=== PATIENT | male | born 1975 | race Caucasian/White ===

== ENCOUNTER → 2017-10-25 13:52 | Outpatient (POV) | payer OTHER, SELFPAY | PROVIDERS: Family Provider Physician Assistant; PCP Physician Assistant; Visit Provider Nurse Practitioner Acute Care | DX: Z00.00 Encounter for general adult medical examination without abnormal findings (principal) ==

== ENCOUNTER 2017-11-15 09:22 | Day surgery (SDC) | payer OTHER, SELFPAY ==
[2017-11-09 16:36] VITALS: BMI 21.1
[2017-11-15] VITALS (7 sets, daily range): BP systolic 111–129; BP diastolic 61–92; PULSE 56–86; RESP 18–20; TEMP 36.2–36.7; O2SAT 96–98
--- NOTE | 2017-11-15 10:19 | HMH.PROC ---
[facility] Procedure Note Procedure Note:: Colonoscopy Procedure Report: Colonoscopy with cold snare polypectomy Endoscopist: Nate Liu II, MD Referring physician: Jess Dangelo PA-C Date of Procedure: November 15, 2017 Equipment: Olympus 180 variable stiffness pediatric colonoscope Sedation: MAC sedation Indication: Mr. Castro is a 41-year-old gentleman who has had constipation/obstipation which has improved with the fiber bowel regimen (MiraLAX plus Metamucil). He has had some left upper quadrant abdominal pain. The patient was taking Linzess which resulted and cramps and rumbling. He reports no rectal bleeding, weight loss or family history of colon cancer. He does feel that his pain may be gas pain. He does have chronic GERD for which he takes omeprazole 20 mg daily. Procedure: Prior to the procedure, a history and physical exam was performed, and patient's medications and allergies were reviewed. The risks, benefits and alternatives of the sedation and procedure were discussed with the patient. All questions were answered and informed consent was obtained. The patient was brought to the procedure room. Patient identification and proposed procedure were verified by the physician and the nurse. The patient was placed in a left lateral decubitus position and the scope was passed under direct vision. Throughout the procedure, the patient's blood pressure, pulse, and oxygen saturations were monitored continuously. The colonoscopy was accomplished without difficulty. The patient tolerated the procedure well. Findings: On digital rectal examination there was normal rectal tone. There were no external hemorrhoids. The prostate was 1-2+, soft, with some firmness on the right lateral margin of the prostate. The colonoscope was introduced through the anal canal to the rectum and advanced to the cecum. The ileocecal valve and appendiceal orifice were identified. The scope was advanced a short distance into the ileum which appeared grossly normal. The scope was then withdrawn into the colon. There were 3 colon polyps identified in the cecum ?1 and sigmoid ?2. These ranged in size from 4-5 mm and were all removed via cold snare polypectomy. The remaining cecum, ascending, transverse, descending, sigmoid and rectum were grossly normal. There were no other mucosal abnormalities identified. Upon retroflexion within the rectum there were grade 1 internal hemorrhoids. Impression: 1. Diminutive colonic polyps ?3 2. Grade 1 internal hemorrhoids Plan: I will follow-up the polyp histology and recommend repeat screening/surveillance colonoscopy in 5 years if the polyps are adenomatous. I would encourage continuation of the fiber bowel regimen. 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 We will discuss additional dietary measures and treatment options. The patient did have some firmness on the left lateral margin of the prostate. I would check PSA presently. The prostate was otherwise soft and unremarkable.
--- NOTE | 2017-11-15 10:23 | P.PCN_ITS ---
[facility] Procedure Note Procedure Note:: Colonoscopy Procedure Report: Colonoscopy with cold snare polypectomy Endoscopist: Nate Liu II, MD Referring physician: Jess Dangelo PA-C Date of Procedure: November 15, 2017 Equipment: Olympus 180 variable stiffness pediatric colonoscope Sedation: MAC sedation Indication: Mr. Castro is a 41-year-old gentleman who has had constipation/ obstipation which has improved with the fiber bowel regimen (MiraLAX plus Metamucil). He has had some left upper quadrant abdominal pain. The patient was taking Linzess which resulted and cramps and rumbling. He reports no rectal bleeding, weight loss or family history of colon cancer. He does feel that his pain may be gas pain. He does have chronic GERD for which he takes omeprazole 20 mg daily. Procedure: Prior to the procedure, a history and physical exam was performed, and patient' s medications and allergies were reviewed. The risks, benefits and alternatives of the sedation and procedure were discussed with the patient. All questions were answered and informed consent was obtained. The patient was brought to the procedure room. Patient identification and proposed procedure were verified by the physician and the nurse. The patient was placed in a left lateral decubitus position and the scope was passed under direct vision. Throughout the procedure, the patient's blood pressure, pulse, and oxygen saturations were monitored continuously. The colonoscopy was accomplished without difficulty. The patient tolerated the procedure well. Findings: On digital rectal examination there was normal rectal tone. There were no external hemorrhoids. The prostate was 1-2+, soft, with some firmness on the right lateral margin of the prostate. The colonoscope was introduced through the anal canal to the rectum and advanced to the cecum. The ileocecal valve and appendiceal orifice were identified. The scope was advanced a short distance into the ileum which appeared grossly normal. The scope was then withdrawn into the colon. There were 3 colon polyps identified in the cecum ?1 and sigmoid ?2. These ranged in size from 4-5 mm and were all removed via cold snare polypectomy. The remaining cecum, ascending, transverse, descending, sigmoid and rectum were grossly normal. There were no other mucosal abnormalities identified. Upon retroflexion within the rectum there were grade 1 internal hemorrhoids. Impression: 1. Diminutive colonic polyps ?3 2. Grade 1 internal hemorrhoids Plan: I will follow-up the polyp histology and recommend repeat screening/ surveillance colonoscopy in 5 years if the polyps are adenomatous. I would encourage continuation of the fiber bowel regimen. 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 We will discuss additional dietary measures and treatment options. The patient did have some firmness on the left lateral margin of the prostate. I would check PSA presently. The prostate was otherwise soft and unremarkable.
--- NOTE | 2017-11-15 13:20 | P.PN_ITS ---
[facility] Anesthesia Checklist - Patient Identification Patient Identification: Arm Band - Structural Data Admitted From: Home Planned Operative Procedure/s: colonoscopy Consent for Planned Operative Procedure(s) Verified: Yes Verified Documents: Surgical Consent, History and Physical - NPO Status Verified Time NPO: 00:00 - Additional verifications Anesthesia Reactions: No - Airway Assessment C-Spine Mobility Assessed: Yes (mp2) TMJ Mobility Assessed: Yes Dentition: Edentulous - Neurological Assessment Level of Consciousness: Awake, Alert - Anesthesia Plan Anesthesia Risk discussed: Yes Anesthesia Plan: Verified ASA Class: II Anesthesia Type: MAC [facility] Anesthesia HX I have reviewed the patient's past medical history: Yes Medical History: Reports:: Hypertension, Palpitations Denies:: Diabetes Mellitus Type 1, Diabetes Mellitus Type 2, Internal Pacemaker, Lung Disease, Seizures Comment: hx left cerebral aneurysm Other Surgeries: No: Pacemaker Comment: right arm mass, nasal surgery
== END 2017-11-15 11:30 ==
LOC: OUTP 09:24
PROVIDERS: Family Provider Physician Assistant; PCP Physician Assistant; Visit Provider Internal Medicine Gastroenterology
PROC: 0DJD8ZZ Inspection of Lower Intestinal Tract, Via Natural or Artificial Opening Endoscopic (ICD-10-PCS; CPT 45378; principal; 2017-11-15 10:30)
DX: K63.5 Polyp of colon (principal); K64.0 First degree hemorrhoids
CPT/HCPCS: 45380

== ENCOUNTER 2017-12-14 08:01 | Day surgery (SDC) | payer OTHER, SELFPAY ==
[2017-12-13 11:48] VITALS: BMI 23.1
[2017-12-13 11:54] VITALS: BP 127/89; PULSE 62; RESP 18; O2SAT 98
[2017-12-14] VITALS (9 sets, daily range): BP systolic 118–137; BP diastolic 77–90; PULSE 62–95; RESP 16–18; TEMP 36.2–36.7; O2SAT 91–100
--- NOTE | 2017-12-14 10:52 | HMH.ANESI ---
[facility] [place] Anesthesia Record Part I Intake, IV Amount: 600 Estimated blood loss (mL): 10 Urine output (mL): 0 Blood Products used (#): none Blood Pressure: 122/77 SaO2: 91 Pulse Rate: 62 Respiratory Rate: 18 Temperature: 97.2 F Patient is:: Drowsy, Nasal O2, Stable Stable to PACU at:: 10:53
--- NOTE | 2017-12-14 10:54 | HMH.ANESII ---
[facility] Anesthesia Record Part II Discharge Time: 11:23 Destination: Surgical Day Care (OP Surgery) PACU nurse assessment reviewed?: Yes Patient Condition:: Fair Anesthesia Complications:: None
--- NOTE | 2017-12-14 14:06 | PC.NURSE ---
1108-o2 titrated off, sats stable 1113-pt eating ice chips w/out difficulty
--- NOTE | 2017-12-14 14:07 | PC.NURSE ---
1121-detailed report called to IMELDA Regalado 1123-Pt transported to post op via stretcher w/rails up per IMELDA Regalado. VSS. Pt stable upon discharge.
--- NOTE | 2017-12-14 17:27 | HMH.OPNOTE ---
Date of procedure: 12/14/17 Pre-op Diagnosis:: Chronic left epididymitis Post-op Diagnosis:: Same Procedure performed:: Left epididymectomy Surgeon:: Bobby Thompson MD FILTER CLOTH MAKER:: Ibrahima Arredondo Anesthesia: GETA Estimated blood loss (mL): 0 Clinical Note:: Patient with chronic left epididymitis refractory to multiple rounds of antibiotics after discussing options he has elected to proceed with left epididymectomy in hopes to resolve chronic pain. He understand wishes to proceed. We discussed the possibility of persistent discomfort. Operative findings:: See operative note Operative note:: After adequate anesthesia the genital area was prepped and draped in standard fashion. The left scrotum was entered and the testis delivered. He appear to have a very redundant epididymis. Roughly the epididymis was removed with care to preserve blood flow to the testis proper the entire body and head of the epididymis was removed. with the convoluted part of the epididymis was ligated with 3-0 chromic. The testis appeared viable was replaced to the left scrotum. The scrotum was closed with 2 layers using 2-0 chromic. Fluffs and scrotal support was placed. 10 cc of 50% Marcaine was used for a cord block. Condition: stable Disposition: PACU Specimens:: Left epididymis Complications:: None
--- NOTE | 2017-12-14 17:31 | P.OP_ITS ---
Date of procedure: 12/14/17 Pre-op Diagnosis:: Chronic left epididymitis Post-op Diagnosis:: Same Procedure performed:: Left epididymectomy Surgeon:: Bobby Thompson MD SECTION CREWS ACTIVITIES CLERK:: Ibrahima Arredondo Anesthesia: GETA Estimated blood loss (mL): 0 Clinical Note:: Patient with chronic left epididymitis refractory to multiple rounds of antibiotics after discussing options he has elected to proceed with left epididymectomy in hopes to resolve chronic pain. He understand wishes to proceed. We discussed the possibility of persistent discomfort. Operative findings:: See operative note Operative note:: After adequate anesthesia the genital area was prepped and draped in standard fashion. The left scrotum was entered and the testis delivered. He appear to have a very redundant epididymis. Roughly the epididymis was removed with care to preserve blood flow to the testis proper the entire body and head of the epididymis was removed. with the convoluted part of the epididymis was ligated with 3-0 chromic. The testis appeared viable was replaced to the left scrotum. The scrotum was closed with 2 layers using 2-0 chromic. Fluffs and scrotal support was placed. 10 cc of 50% Marcaine was used for a cord block. Condition: stable Disposition: PACU Specimens:: Left epididymis Complications:: None
== END 2017-12-14 12:00 | disposition home or self-care (01) ==
LOC: OR 08:02
PROVIDERS: Family Provider Physician Assistant; PCP Physician Assistant; Visit Provider Urology
PROC: (CPT 54860; principal; 2017-12-14 09:45)
DX: N45.1 Epididymitis (principal)
CPT/HCPCS: 54860; 96374; J2405

== ENCOUNTER 2017-12-26 12:41 | Emergency (ER) | payer OTHER, SELFPAY ==
[2017-12-26 12:59] VITALS: BP 164/110; PULSE 100; RESP 16; TEMP 37.1; O2SAT 100; BMI 22.4
--- NOTE | 2017-12-26 14:33 | HMH.EDUROGM ---
ED Disposition Clinical Impression: Postoperative wound dehiscence Disposition: Home, Self-Care Condition on Discharge: Fair Instructions: DI for Urinary Tract Infection (UTI), DI for Urinary Tract Infection in Children Additional Instructions: 1- daily clean dressing. 2- bactrim DS po bid 3- follow up with Dr Thompson in AM. 4- the patient has pain medicine. 5- return if needed for fever or increased pain. Prescriptions: Sulfamethoxazole/Trimethoprim [Bactrim DS tablet] 1 each PO BID #20 tab Referrals: Jess Dangelo PA [Primary Care Provider] - - Critical Care Critical Care Time: No Attestation: On 12/26/17, the high probability of a clinically significant, sudden or life threatening deterioration of the following system(s) required my full and direct attention, intervention and personal management. The time I documented below is in addition to time spent performing reported procedures but includes the following listed in this critical care notation. Medical Decision Making - Red Inquiry Pt receiving controlled substance: No Red was queried for this patient: No Vital Signs: 12/26/17 12:59 Temperature 98.7 F Temperature Source Oral Pulse Rate [Right Radial] 100 H Respiratory Rate 16 Blood Pressure [Right Arm] 164/110 Blood Pressure Mean [Right Arm] 128 02 Sat by Pulse Oximetry 100 Oxygen Delivery Method Room Air - Lab Data Lab Results 12/26/17 14:33: Urine Color Yellow, Urine Appearance Clear, Urine pH 6.0, Ur Specific [place] 1.015, Urine Protein Negative, Urine Glucose (UA) Negative, Urine Ketones Negative, Urine Blood Negative, Urine Nitrate Negative, Urine Bilirubin Negative, Urine Urobilinogen 0.2, Ur Leukocyte Esterase Negative, Urine WBC Occasional, Ur Squamous Epith Cells Occasional, Urine Bacteria Trace, Urine Mucus 2+ 12/26/17 14:43: WBC 11.6 H, RBC 5.75, Hgb 16.3, Hct 50.3, MCV 87.5, MCH 28.3, MCHC 32.3, RDW 12.7, Plt Count 232, MPV 8.1, Neut % (Auto) 77.3, Lymph % (Auto) 15.7, [place] % (Auto) 5.6, Eos % (Auto) 1.1, Baso % (Auto) 0.3, Neut # (Auto) 9.0 H, Lymph # (Auto) 1.8, [place] # (Auto) 0.7, Eos # (Auto) 0.1, Baso # (Auto) 0.0 12/26/17 14:43: Sodium 143, Potassium 4.4, Chloride 104, Carbon Dioxide 31, Anion Gap 12.4, BUN 9, Creatinine 0.98, Estimated Creat Clear 107, Estimated GFR 84, Est GFR ( Amer) 101, Glucose 88 Result diagrams: 12/26/17 14:43 12/26/17 14:43 Medical Decision Narrative: The patient underwent labs and I called Dr Thompson I discussed with Dr Leung who advised fir abx and follow up with Dr Thompson. Male Urogenital HPI - General Chief complaint: Urogenital-Male Stated complaint: Surgery 12/07/17 incision open up Time Seen by Provider: 12/26/17 14:00 Mode of Arrival: Ambulatory Limitations: No Limitations Description of Symptoms (Recalled from ER Triage Doc. by RN): HAD PENILE SURGERY TWO WEEKS AGO AND STITCHES CAME OPEN AND PT IS BLEEDING NOW. - History of Present Illness HPI Narrative: This is a 42 years old white male with cerebral artery aneurysm and hypertension who is noncompliant with his blood pressure medication. He underwent surgery to the left epididymis by Dr. Kinsey on December 14, 2017. 10 days postoperatively he had wound dehiscence and was seen by [address] associates.. The patient account that he was not given antibiotics or pain medications. He continues to have bleeding from the wound and its becoming foul offensive smell to it. MD Complaint: other (Scrotal bleeding) Onset (ago): day(s) (12/23/17 on morning.) Duration: intermittent Location: left testicle Severity: mild Quality: dull Relieving factors: supine Exacerbating factors: movement, other (standing. ) recent surgery Reports: denies other symptoms - Related Data Sexually active: Yes Home Medications Medication Instructions Recorded Confirmed Omeprazole [Omeprazole 40mg 40 mg PO DAILY 11/09/17 12/26/17 Capsule] buspi
--- NOTE | 2017-12-26 14:36 | ED_ITS ---
ED Disposition Clinical Impression: Postoperative wound dehiscence Disposition: Home, Self-Care Condition on Discharge: Fair Instructions: DI for Urinary Tract Infection (UTI), DI for Urinary Tract Infection in Children Additional Instructions: 1- daily clean dressing. 2- bactrim DS po bid 3- follow up with Dr Thompson in AM. 4- the patient has pain medicine. 5- return if needed for fever or increased pain. Prescriptions: Sulfamethoxazole/Trimethoprim [Bactrim DS tablet] 1 each PO BID #20 tab Referrals: Jess Dangelo PA [Primary Care Provider] - - Critical Care Critical Care Time: No Attestation: On 12/26/17, the high probability of a clinically significant, sudden or life threatening deterioration of the following system(s) required my full and direct attention, intervention and personal management. The time I documented below is in addition to time spent performing reported procedures but includes the following listed in this critical care notation. Medical Decision Making - Red Inquiry Pt receiving controlled substance: No Red was queried for this patient: No Vital Signs: 12/26/17 12:59 Temperature 98.7 F Temperature Source Oral Pulse Rate [Right Radial] 100 H Respiratory Rate 16 Blood Pressure [Right Arm] 164/110 Blood Pressure Mean [Right Arm] 128 02 Sat by Pulse Oximetry 100 Oxygen Delivery Method Room Air - Lab Data Lab Results 12/26/17 14:33: Urine Color Yellow, Urine Appearance Clear, Urine pH 6.0, Ur Specific [place] 1.015, Urine Protein Negative, Urine Glucose (UA) Negative, Urine Ketones Negative, Urine Blood Negative, Urine Nitrate Negative, Urine Bilirubin Negative, Urine Urobilinogen 0.2, Ur Leukocyte Esterase Negative, Urine WBC Occasional, Ur Squamous Epith Cells Occasional, Urine Bacteria Trace, Urine Mucus 2+ 12/26/17 14:43: WBC 11.6 H, RBC 5.75, Hgb 16.3, Hct 50.3, MCV 87.5, MCH 28.3, MCHC 32.3, RDW 12.7, Plt Count 232, MPV 8.1, Neut % (Auto) 77.3, Lymph % (Auto) 15.7, [place] % (Auto) 5.6, Eos % (Auto) 1.1, Baso % (Auto) 0.3, Neut # (Auto) 9.0 H, Lymph # (Auto) 1.8, [place] # (Auto) 0.7, Eos # (Auto) 0.1, Baso # (Auto) 0.0 12/26/17 14:43: Sodium 143, Potassium 4.4, Chloride 104, Carbon Dioxide 31, Anion Gap 12.4, BUN 9, Creatinine 0.98, Estimated Creat Clear 107, Estimated GFR 84, Est GFR ( Amer) 101, Glucose 88 Result diagrams: 12/26/17 14:43 12/26/17 14:43 Medical Decision Narrative: The patient underwent labs and I called Dr Thompson I discussed with Dr Leung who advised fir abx and follow up with Dr Thompson. Male Urogenital HPI - General Chief complaint: Urogenital-Male Stated complaint: Surgery 12/07/17 incision open up Time Seen by Provider: 12/26/17 14:00 Mode of Arrival: Ambulatory Limitations: No Limitations Description of Symptoms (Recalled from ER Triage Doc. by RN): HAD PENILE SURGERY TWO WEEKS AGO AND STITCHES CAME OPEN AND PT IS BLEEDING NOW. - History of Present Illness HPI Narrative: This is a 42 years old white male with cerebral artery aneurysm and hypertension who is noncompliant with his blood pressure medication. He underwent surgery to the left epididymis by Dr. Kinsey on December 14, 2017. 10 days postoperatively he had wound dehiscence and was seen by [address] associates.. The patient account that he was not given antibiotics or pain medications. He continues to have bleeding from the wound and its becoming foul offensive s
[2017-12-26 14:46] LABS: Microscopic, Urine URINE MICROSCOPIC (MICROSCOPIC)
[2017-12-26 14:52] LABS: Appearance,Urine CLEAR (Clear); Bilirubin,Urine Negative (Negative); Blood, Urine Negative (Negative); Color,Urine YELLOW (Yellow); Glucose,Urine (UA) Negative (Negative); Ketones,Urine Negative (Negative); Leukocyte Esterase,Urine Negative (Negative); Nitrate,Urine Negative (Negative); Protein,Urine Negative (Negative); Specific Gravity, Urine 1.015 (1.005-1.030); Urobilinogen,Urine 0.2 EU/dl (0.2)
[2017-12-26 14:52] LABS: Basophils % 0.3 % (0.1-2.0); Eosinophils # 0.1 K/mm3 (0.0-0.4); Eosinophils % 1.1 % (0.1-12.0); Hematocrit 50.3 % (42.0-52.0); Hemoglobin 16.3 g/dL (14.1-18.0); Lymphocytes # 1.8 K/mm3 (0.7-4.5); Lymphocytes % 15.7 K/mm3 (10-50); Mean Corpuscular HGB Conc 32.3 g/dL (31.8-35.4); Mean Corpuscular Hemoglobin 28.3 pg (27.0-31.2); Mean Corpuscular Volume 87.5 fl (80-94); Mean Platelet Volume 8.1 fl (7.4-10.4); Monocytes # 0.7 K/mm3 (0.1-1.0); Monocytes % 5.6 % (1.7-9.3); Neutrophils % 77.3 % (37.0-80.0); Platelet Count 232 K/mm3 (142-424); Red Blood Count 5.75 M/mm3 (4.60-6.20); Red Cell Distribution Width 12.7 % (11.5-17.5); White Blood Count 11.6 K/mm3 (4.8-10.8)
[2017-12-26 14:59] LABS: Bacteria,Urine Trace /lpf; Mucus,Urine 2+ /lpf; Squamous Epithelial Cell,Urine Occasional #/hpf (0-5); WBC,Urine Occasional #/hpf (0-3)
[2017-12-26 14:59] LABS: Anion Gap 12.4 mEq/L (5-15); Blood Urea Nitrogen 9 mg/dL (7-18); Carbon Dioxide 31 mmol/L (21.0-32.0); Chloride 104 mmol/L (98-107); Creatinine Clearance Estimated 107 mL/min (0-300); Creatinine,Serum 0.98 mg/dL (0.70-1.30); Estimated Glomerular Filt Rate 84 ml/min (>60); GFR (African American) 101 ML/MIN (>60); Glucose 88 mg/dL (74-106); Potassium 4.4 mmoL/L (3.5-5.1); Sodium 143 mmol/L (136-145)
[2017-12-26 16:15] VITALS: BP 152/86; PULSE 97; RESP 16; TEMP 37.2; O2SAT 99
== END 2017-12-26 16:17 | disposition home or self-care (01) ==
PROVIDERS: Emergency Provider Emergency Medicine; Family Provider Physician Assistant; PCP Physician Assistant
DX: T81.30XA Disruption of wound, unspecified, initial encounter (principal); I10 Essential (primary) hypertension
CPT/HCPCS: 80048; 81001; 85025; 99283

== ENCOUNTER → 2018-04-14 10:59 | Outpatient (CLI) | payer OTHER, SELFPAY | PROVIDERS: PCP Physician Assistant; Visit Provider Physician Assistant | DX: R07.9 Chest pain, unspecified (principal); R42 Dizziness and giddiness; R55 Syncope and collapse; R06.00 Dyspnea, unspecified | CPT/HCPCS: 93225; 93226 ==

== ENCOUNTER → 2018-04-14 12:38 | Outpatient (REF) | payer OTHER, SELFPAY ==
[2018-04-14 17:05] LABS: Basophils % 0.3 % (0.1-2.0); Eosinophils # 0.2 K/mm3 (0.0-0.4); Eosinophils % 1.6 % (0.1-12.0); Hematocrit 51.7 % (42.0-52.0); Hemoglobin 16.6 g/dL (14.1-18.0); Lymphocytes # 1.9 K/mm3 (0.7-4.5); Mean Corpuscular HGB Conc 32.1 g/dL (31.8-35.4); Mean Corpuscular Hemoglobin 27.7 pg (27.0-31.2); Mean Corpuscular Volume 86.5 fl (80-94); Mean Platelet Volume 9.2 fl (7.4-10.4); Monocytes # 0.6 K/mm3 (0.1-1.0); Monocytes % 5.9 % (1.7-9.3); Neutrophils # 7.3 K/mm3 (1.8-7.8); Neutrophils % 73.2 % (37.0-80.0); Platelet Count 203 K/mm3 (142-424); Red Blood Count 5.98 M/mm3 (4.60-6.20); Red Cell Distribution Width 12.9 % (11.5-17.5)
[2018-04-14 17:33] LABS: Alanine Aminotransferase 44 U/L (12-78); Albumin Level 4.6 gm/dL (3.4-5.0); Albumin/Globulin Ratio 1.4 (1.1-1.8); Alkaline Phosphatase 101 U/L (46-116); Anion Gap 13.4 mEq/L (5-15); Aspartate Amino Transferase 31 U/L (15-37); Bilirubin,Total 0.6 mg/dL (0.2-1.0); Blood Urea Nitrogen 14 mg/dL (7-18); Calcium 9.5 mg/dL (8.5-10.1); Carbon Dioxide 29 mmol/L (21.0-32.0); Chloride 104 mmol/L (98-107); Chol/HDL Ratio 7.1 (1-3.5); Cholesterol 221 mg/dL (140-200); Creatinine,Serum 0.92 mg/dL (0.70-1.30); Estimated Glomerular Filt Rate 90 ml/min (>60); GFR (African American) 109 ML/MIN (>60); Globulin 3.4 gm/dl (1.3-3.2); Glucose 62 mg/dL (74-106); HDL Cholesterol 31 mg/dL (27-67); LDL Cholesterol 168 mg/dL (0-130); Potassium 4.4 mmoL/L (3.5-5.1); Sodium 142 mmol/L (136-145); T4 (Thyroxine) 8.7 ug/dl (4.7-13.3); Thyroid Stimulating Hormone 0.92 uIU/ml (0.358-3.740); Triglycerides 109 mg/dL (30-200); VLDL Cholesterol 22 mg/dL (0-40)
[2018-04-16 18:05] LABS: Folate 8.5 ng/mL (>3.0); Vitamin B12 370 pg/mL (232-1245); Vitamin D 25 Hydroxy 35.8 ng/mL (30.0-100.0)
[2018-04-18 12:30] LABS: Testosterone,Free 9.2 pg/mL (6.8-21.5)
[2018-04-19 15:21] LABS: Testosterone, Total, LC/MS 512.9 ng/dL (264.0-916.0)
== END ==
LOC: LAB 12:38
PROVIDERS: Visit Provider Physician Assistant
DX: R07.9 Chest pain, unspecified (principal); R06.00 Dyspnea, unspecified; R42 Dizziness and giddiness; R55 Syncope and collapse; R53.83 Other fatigue
CPT/HCPCS: 80053; 80061; 82607; 82652; 82746; 84402; 84403; 84436; 84443; 85025

== ENCOUNTER → 2018-04-25 06:18 | Outpatient (CLI) | payer OTHER, SELFPAY ==
--- NOTE | 2018-04-25 06:20 | CI_ITS ---
Cerebrovascular Exam Indications: 780.2 Syncope and collapse. IMPRESSIONS 1. The bilateral vertebral arteries are patent with normal antegrade flow. 2. Study suggests less than 20% stenosis involving the right internal carotid artery and the left internal carotid artery. History: Syncope. Risk factors: Current tobacco use. Chest pain. Fatigue. SOB. Carotid duplex study. Complete study and Doppler flow study including spectral analysis, color and lyn scale imaging. Height: Height: 185.4cm. Height: 73in. Weight: Weight: 79.4kg. Weight: 174.6lb. Body mass index: BMI: 23.1kg/m^2. Body surface area: BSA: 2.02m^2. Location: Vascular laboratory. Patient status: Outpatient. Tables: Arterial flow: + +--------+--------+ Location V sys V ed + +--------+--------+ Right CCA - proximal 122cm/s 32.2cm/s + +--------+--------+ Right CCA - distal 116cm/s 33.8cm/s + +--------+--------+ Right ECA 102cm/s -------- + +--------+--------+ Right ICA - proximal 84.9cm/s 30.6cm/s + +--------+--------+ Right ICA - mid 108cm/s 44.8cm/s + +--------+--------+ Right ICA - distal 107cm/s 43.2cm/s + +--------+--------+ Right vertebral 70.7cm/s -------- + +--------+--------+ Left CCA - proximal 136cm/s 31.4cm/s + +--------+--------+ Left CCA - distal 101cm/s 35.4cm/s + +--------+--------+ Left ECA 108cm/s -------- + +--------+--------+ Left ICA - proximal 88cm/s 30.6cm/s + +--------+--------+ Left ICA - mid 108cm/s 36.9cm/s + +--------+--------+ Left ICA - distal 108cm/s 44.8cm/s + +--------+--------+ Left vertebral 58.9cm/s -------- + +--------+--------+ Velocity ratios: + + + + + + Right, V sys Right, V ed Left, V sys Left, V ed + + + + + + Max ICA/dist CCA 0.93 1.33 1.07 1.27 + + + + + + (Report amended ) Electronically signed by: Vladimir Cunningham [id number]
--- NOTE | 2018-04-25 06:20 | CA_ITS ---
PROCEDURE: 2-D M-mode and color Doppler study INDICATIONS FOR THE TEST: Chest pain+ COPD Heart Murmur Tobacco Smoking+ Palpitations Fatigue+ Syncope+ Edema Hypertension Diabetes Mellitus Rheumatic Fever SOB+ALEXIS Obesity Hyperlipidemia Family History HD Additional History syncope PATIENT INFORMATION HEIGHT: 73 WEIGHT: 173 GENDER: Male B/P: 140/80 2-D/M-MODE INTERPRETATION: 2-D MEASUREMENTS OBSERVED VALUES IN CMS Right Ventricular Dimension (RVDd) 1.6 Interventricular Septum (Thickness)(IVsd) 0.8 Left Ventricular Internal Dimensions(LVIDd) 5.9 Left Ventricular Posterior Wall (Thickness)(LVPWd) 0.8 Aortic Root 2.8 Aortic Cusp Separation 2.2 Left Atrial Dimensions (LAD) 3.9 2D 1. Left atrium is normal size, left ventricle is normal size, there is no concentric left ventricular hypertrophy, visually estimated ejection fraction 55% with no obvious regional wall motion abnormality. 2. The right atrium and right ventricle are normal size and contractility. 3. The aortic, mitral and tricuspid valvular grossly normal. 4. The pulmonic valve is poorly visualized. 5. No significant pericardial effusion noted DOPPLER INTERROGATION: Doppler interrogation of the aortic, mitral and tricuspid valvular presence of mild mitral and tricuspid regurgitation, tricuspid and jet velocity is insufficient for calculation of the right ventricular systolic pressure, diastolic parameters are inconclusive. CONCLUSION: 1. Normal left ventricular size, preserved left ventricular systolic function, visually estimated ejection fraction 55% with no obvious regional wall motion abnormality, diastolic parameters are inconclusive. 2. Mild mitral and tricuspid regurgitation 3. No significant pericardial effusion noted
--- NOTE | 2018-04-25 06:20 | NM_ITS ---
History and Indications: Tobacco use, Family history, chest pain, shortness of breath and fatigue Procedure: Patient exercised on Jeancarlos protocol 5 minutes, resting heart rate was 47 bpm resting blood pressure 135/79, with exercise maximum heart rate achieved was 1 53 bpm which is equal to 86% of the maximum predicted heart rate and a blood pressure was 159/92, the test was started due to shortness of breath and fatigue patient denied any complained of chest pain. Patient has good exercise capacity achieved 12.8mets of workload on treadmill, the blood pressure response to exercise was adequate. Electrocardiogram: Resting electrocardiogram showed sinus bradycardia, nonspecific ST-T changes, with exercise there is less than 1.[address] segment depression noted from the baseline EKG. The EKG portion of the exercise Myoview is nondiagnostic. Secondary to baseline abnormal EKG. Cardiac stress and resting SPECT images: Cardiac stress and rest SPECT images were obtained using technetium 99 Myoview 28.4 mCi at stress and and 10.5 mCi at rest, gated SPECT further analysis of segmental wall motion and calculation of the ejection fraction also done. Cardiac stress and rest images show uniform myocardial activity without any segmental perfusion abnormality, computer derived ejection fraction is 49% with no obvious regional wall motion abnormality, right ventricle is normal size and contractility. Conclusion: 1. The EKG portion of the exercise Myoview is nondiagnostic secondary to baseline abnormal EKG, patient has good exercise capacity achieved 12.8mets of workload on treadmill, the blood pressure response to exercise was adequate, there was no exercise-induced chest discomfort. 2. No obvious scintigraphic evidence of reversible ischemia seen at this level of exercise, either derived ejection fraction is 49% with no obvious regional wall motion abnormality, right ventricle is normal size and contractility.
== END ==
PROVIDERS: Family Provider Physician Assistant; PCP Physician Assistant; Visit Provider Physician Assistant
DX: R07.9 Chest pain, unspecified (principal); R06.00 Dyspnea, unspecified; R42 Dizziness and giddiness; R55 Syncope and collapse; R94.39 Abnormal result of other cardiovascular function study; R53.83 Other fatigue
CPT/HCPCS: 78452; 93017; 93306; 93880; A9502

== ENCOUNTER → 2018-06-15 09:04 | Outpatient (CLI) | payer OTHER, SELFPAY ==
[2018-06-15 14:05] LABS: Basophils % 0.3 % (0.1-2.0); Eosinophils # 0.3 K/mm3 (0.0-0.4); Hemoglobin 15.7 g/dL (14.1-18.0); Lymphocytes # 1.6 K/mm3 (0.7-4.5); Lymphocytes % 19.3 K/mm3 (10-50); Mean Corpuscular HGB Conc 33.4 g/dL (31.8-35.4); Mean Corpuscular Hemoglobin 28.9 pg (27.0-31.2); Mean Corpuscular Volume 86.5 fl (80-94); Mean Platelet Volume 8.5 fl (7.4-10.4); Monocytes # 0.8 K/mm3 (0.1-1.0); Monocytes % 9.1 % (1.7-9.3); Neutrophils # 5.8 K/mm3 (1.8-7.8); Neutrophils % 68.3 % (37.0-80.0); Platelet Count 223 K/mm3 (142-424); Red Blood Count 5.44 M/mm3 (4.60-6.20); Red Cell Distribution Width 13.5 % (11.5-17.5); White Blood Count 8.4 K/mm3 (4.8-10.8)
[2018-06-15 15:37] LABS: Alanine Aminotransferase 39 U/L (12-78); Albumin Level 4.4 gm/dL (3.4-5.0); Albumin/Globulin Ratio 1.4 (1.1-1.8); Alkaline Phosphatase 98 U/L (46-116); Anion Gap 12.8 mEq/L (5-15); Aspartate Amino Transferase 25 U/L (15-37); Bilirubin,Total 1.1 mg/dL (0.2-1.0); Blood Urea Nitrogen 14 mg/dL (7-18); Calcium 10.2 mg/dL (8.5-10.1); Carbon Dioxide 30 mmol/L (21.0-32.0); Chloride 105 mmol/L (98-107); Chol/HDL Ratio 7.1 (1-3.5); Cholesterol 241 mg/dL (140-200); Creatinine,Serum 1.05 mg/dL (0.70-1.30); Estimated Glomerular Filt Rate 77 ml/min (>60); GFR (African American) 94 ML/MIN (>60); Globulin 3.2 gm/dl (1.3-3.2); Glucose 100 mg/dL (74-106); HDL Cholesterol 34 mg/dL (27-67); LDL Cholesterol 185 mg/dL (0-130); Potassium 4.8 mmoL/L (3.5-5.1); Sodium 143 mmol/L (136-145); T4 (Thyroxine) 9.9 ug/dl (4.7-13.3); Thyroid Stimulating Hormone 0.74 uIU/ml (0.358-3.740); Total Protein,Serum 7.6 gm/dL (6.4-8.2); Triglycerides 110 mg/dL (30-200); VLDL Cholesterol 22 mg/dL (0-40)
[2018-06-16 20:03] LABS: Vitamin D 25 Hydroxy 41.3 ng/mL (30.0-100.0)
[2018-06-16 20:05] LABS: Folate 8.9 ng/mL (>3.0); Vitamin B12 365 pg/mL (232-1245)
[2018-06-21 08:27] LABS: Testosterone, Total, LC/MS 570.3 ng/dL (264.0-916.0)
== END ==
PROVIDERS: Visit Provider Physician Assistant
DX: R53.1 Weakness (principal)
CPT/HCPCS: 80053; 80061; 82607; 82652; 82746; 84402; 84403; 84436; 84443; 85025

== ENCOUNTER → 2018-06-22 10:53 | Outpatient (CLI) | payer OTHER, SELFPAY ==
--- NOTE | 2018-06-22 10:55 | MR_ITS ---
MR head/brain wo/w con HISTORY: Severe headache with visual changes, follow-up aneurysm, dizziness and blurred vision ITS.REASON: Visual changes, headache, vertigo ORDERING PHYSICIAN: MYA Faria PATIENT AGE: 42 years Comparison: 11/13/2016 TECHNIQUE: Standard multiplanar multiecho sequences are performed without and with gadolinium enhancement. FINDINGS: No midline shift, mass effect, hydrocephalus,. No enhancing lesions. No evidence of acute infarction. The cerebellopontine angles, cerebellum, and brainstem are unremarkable. There is normal lyn-white matter differentiation with no abnormal white matter signal intensity. The pituitary is unremarkable as is the optic chiasm. On the previous brain MRI there was a question of an ophthalmic artery aneurysm which represented bony protrusion of the anterior clinoid. There was however, a 2 mm internal carotid aneurysm on the MRA. This is below limits of resolution on the MRI. MRI would be better for follow-up of this abnormality. There is some mild volume loss in region of the right hippocampal gyrus nonspecific but can be seen with hippocampal sclerosis. No mastoid effusion or sinus air-fluid level. Mild mucosal thickening involves the ethmoid and frontal sinuses IMPRESSION: 1. No acute intracranial findings. 2. 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 3. Minimal volume loss of the right hippocampal gyrus nonspecific but may be seen with hippocampal sclerosis not significantly changed
== END ==
PROVIDERS: Family Provider Physician Assistant; PCP Physician Assistant; Visit Provider Physician Assistant
DX: G43.909 Migraine, unspecified, not intractable, without status migrainosus (principal); H53.9 Unspecified visual disturbance; I72.9 Aneurysm of unspecified site
CPT/HCPCS: 70553; A9576

== ENCOUNTER → 2018-07-26 09:15 | Outpatient (CLI) | payer OTHER, SELFPAY ==
[2018-07-26 09:44] LABS: Basophils % 0.6 % (0.1-2.0); Eosinophils # 0.3 K/mm3 (0.0-0.4); Eosinophils % 3.8 % (0.1-12.0); Hematocrit 45.7 % (42.0-52.0); Hemoglobin 15.1 g/dL (14.1-18.0); Lymphocytes # 2.4 K/mm3 (0.7-4.5); Mean Corpuscular Hemoglobin 28.9 pg (27.0-31.2); Mean Corpuscular Volume 87.4 fl (80-94); Mean Platelet Volume 8.1 fl (7.4-10.4); Monocytes # 0.6 K/mm3 (0.1-1.0); Monocytes % 7.6 % (1.7-9.3); Neutrophils # 4.2 K/mm3 (1.8-7.8); Neutrophils % 55.9 % (37.0-80.0); Platelet Count 208 K/mm3 (142-424); Red Blood Count 5.22 M/mm3 (4.60-6.20); Red Cell Distribution Width 13.1 % (11.5-17.5); White Blood Count 7.4 K/mm3 (4.8-10.8)
[2018-07-26 11:13] LABS: Alanine Aminotransferase 38 U/L (12-78); Albumin Level 4.2 gm/dL (3.4-5.0); Albumin/Globulin Ratio 1.2 (1.1-1.8); Alkaline Phosphatase 104 U/L (46-116); Anion Gap 12.5 mEq/L (5-15); Aspartate Amino Transferase 24 U/L (15-37); Blood Urea Nitrogen 12 mg/dL (7-18); Calcium 9.7 mg/dL (8.5-10.1); Carbon Dioxide 30 mmol/L (21.0-32.0); Chloride 105 mmol/L (98-107); Estimated Glomerular Filt Rate 93 ml/min (>60); GFR (African American) 112 ML/MIN (>60); Globulin 3.5 gm/dl (1.3-3.2); Glucose 108 mg/dL (74-106); Potassium 4.5 mmoL/L (3.5-5.1); Sodium 143 mmol/L (136-145); Thyroid Stimulating Hormone 1.09 uIU/ml (0.358-3.740); Total Protein,Serum 7.7 gm/dL (6.4-8.2)
== END ==
PROVIDERS: Family Provider Physician Assistant; PCP Physician Assistant; Visit Provider Specialist
DX: R51 Headache (principal); I10 Essential (primary) hypertension; I67.1 Cerebral aneurysm, nonruptured; M54.2 Cervicalgia; R20.2 Paresthesia of skin
CPT/HCPCS: 36415; 80053; 84443; 85025

== ENCOUNTER → 2018-08-02 07:48 | Outpatient (CLI) | payer OTHER, SELFPAY ==
--- NOTE | 2018-08-02 07:49 | MR_ITS ---
MR cervical spine wo con, MR 3-d myelogram/MRCP HISTORY: Bilateral neck pain but worse on the RT. Headache. X2YRS. Stiffness in neck. ITS.REASON: headache, neck pain ORDERING PHYSICIAN: Kirti Samaniego MD PATIENT AGE: 42 years Comparison: None TECHNIQUE: Standard multiplanar multiecho sequences are performed without contrast. 3-D MIP and myelographic images are also rendered and reviewed FINDINGS: There is normal alignment. The craniocervical junction has an unremarkable appearance C2-C3: There is mild hypertrophic change of the lamina on the right causing mild compression upon the posterior right aspect of the cord. C3-C4: Unremarkable. C4-C5: Minimal bulging disc with mild disc desiccation. C5-C6: Mild left foraminal narrowing from uncovertebral hypertrophy. C6-C7: Degenerative disc disease with bulging disc and mild left uncovertebral hypertrophy with mild left lateral recess and foraminal narrowing. C7-T1: Unremarkable. Spinal cord has an unremarkable appearance. IMPRESSION: 1. Mild hypertrophic change of the lamina on the right causing mild flattening and compression upon the right aspect of the cord posteriorly at C2-C3 2. Mild cervical spondylosis with degenerative disc disease and bulging disc as described above. Please see above for detailed description at each level 3. No disc herniation or canal stenosis
--- NOTE | 2018-08-02 08:33 | CT_ITS ---
CT angio head INDICATION: ITS.REASON: headache, intracranial aneurysm ORDERING PHYSICIAN: Kirti Samaniego MD PATIENT AGE: 42 years COMPARISON: 12/24/2016 MRI TECHNIQUE: Axial images are obtained following the bolus administration of 100 mL's of Isovue-370. Contrast. Sagittal and coronal reformatted images are reviewed as well. All CT scans at the facility use one or more dose reduction, viz: automated exposure control, ma/kV adjustment per patient size (including targeted exams where dose is matched to indication, i.e. head), or iterative reconstruction technique. FINDINGS: There is a 2.5 mm x 1.6 mm protrusion from the cavernous segment of the left internal carotid artery. This projects anteriorly and laterally and is similar to the abnormality described on the MRA consistent with a small aneurysm. On the MRI report as described is clinoid portion but this is actually the junction of the cavernous and clinoid portion. No other significant abnormalities are evident. No intracranial occlusive process or arteriovenous malformation is evident. No evidence of sagittal sinus thrombosis. No enhancing lesions are apparent. IMPRESSION: 1. Small aneurysm projecting off of the junction of the clinoid and cavernous portion of the left internal carotid artery at 2.5 x 1.6 mm overall not significant change from the MRA of 12/24/2016
== END ==
PROVIDERS: Family Provider Physician Assistant; PCP Physician Assistant; Visit Provider Specialist
DX: R51 Headache (principal); I67.1 Cerebral aneurysm, nonruptured; I10 Essential (primary) hypertension; M54.2 Cervicalgia; R20.2 Paresthesia of skin
CPT/HCPCS: 70496; 72141; 76376; Q9967

== ENCOUNTER → 2018-08-25 13:29 | Outpatient (CLI) | payer OTHER, SELFPAY ==
[2018-08-25 13:52] LABS: Basophils % 0.5 % (0.1-2.0); Eosinophils # 0.3 K/mm3 (0.0-0.4); Eosinophils % 3.2 % (0.1-12.0); Hematocrit 47.3 % (42.0-52.0); Hemoglobin 15.2 g/dL (14.1-18.0); Lymphocytes # 2.1 K/mm3 (0.7-4.5); Lymphocytes % 24.3 % (10-50); Mean Corpuscular HGB Conc 32.1 g/dL (31.8-35.4); Mean Corpuscular Hemoglobin 28.3 pg (27.0-31.2); Mean Platelet Volume 8.8 fl (7.4-10.4); Monocytes # 0.6 K/mm3 (0.1-1.0); Monocytes % 6.4 % (1.7-9.3); Neutrophils # 5.8 K/mm3 (1.8-7.8); Neutrophils % 65.6 % (37.0-80.0); Platelet Count 202 K/mm3 (142-424); Red Blood Count 5.38 M/mm3 (4.60-6.20); Red Cell Distribution Width 13.1 % (11.5-17.5); White Blood Count 8.8 K/mm3 (4.8-10.8)
[2018-08-25 14:32] LABS: Alanine Aminotransferase 34 U/L (12-78); Albumin/Globulin Ratio 1.3 (1.1-1.8); Alkaline Phosphatase 105 U/L (46-116); Anion Gap 13.9 mEq/L (5-15); Aspartate Amino Transferase 17 U/L (15-37); Bilirubin,Total 0.6 mg/dL (0.2-1.0); Blood Urea Nitrogen 13 mg/dL (7-18); Calcium 9.6 mg/dL (8.5-10.1); Carbon Dioxide 30 mmol/L (21.0-32.0); Chloride 103 mmol/L (98-107); Creatinine,Serum 0.86 mg/dL (0.70-1.30); Estimated Glomerular Filt Rate 98 ml/min (>60); GFR (African American) 118 ML/MIN (>60); Globulin 3.2 gm/dl (1.3-3.2); Glucose 94 mg/dL (74-106); Potassium 4.9 mmoL/L (3.5-5.1); Sodium 142 mmol/L (136-145); Total Protein,Serum 7.2 gm/dL (6.4-8.2); Uric Acid 5.1 mg/dL (2.6-7.2)
[2018-08-25 14:44] LABS: Erythrocyte Sedimentation Rate 1 mm/hr (0-15)
== END ==
PROVIDERS: PCP Physician Assistant; Visit Provider Physician Assistant
DX: M79.89 Other specified soft tissue disorders (principal)
CPT/HCPCS: 80053; 84550; 85025; 85651

== ENCOUNTER → 2018-11-01 13:36 | Outpatient (CLI) | payer OTHER, SELFPAY ==
--- NOTE | 2018-11-01 13:40 | XR_ITS ---
XR chest AP HISTORY: ITS.REASON: pain upon deep inspiration ORDERING PHYSICIAN: Danish Pompa PATIENT AGE: 42 years COMPARISON: 10/11/2016 FINDINGS: The cardiomediastinal silhouette and pulmonary vascularity are within normal limits. The lungs are clear without infiltrates, suspicious nodules, or pleural effusions. No acute bony abnormalities. IMPRESSION: Negative chest, no acute finding
== END ==
PROVIDERS: PCP Emergency Medicine; Visit Provider Nurse Practitioner Family
DX: R06.2 Wheezing (principal)
CPT/HCPCS: 71045

== ENCOUNTER → 2018-12-06 09:11 | Outpatient (POV) | payer OTHER, SELFPAY ==
[2018-12-06 09:32] VITALS: BP 163/91; PULSE 50; RESP 18
--- NOTE | 2018-12-06 10:57 | HMH.PMCON ---
Assessment and Plan (1) Degenerative disc disease, cervical Current visit: Yes Status: Chronic Category: Medical Code(s): M50.30 - Other cervical disc degeneration, unspecified cervical region (2) Cervical radiculopathy Current visit: Yes Status: Chronic Category: Medical Code(s): M54.12 - Radiculopathy, cervical region - Assessment and plan all Dx Assessment and Plan for all problems:: We will schedule C5-C6 cervical epidural steroid injection for the patient. He is not on any anticoagulation therapy is continuing a home stretching regimen. He is currently on anti-inflammatories he has had this pain for several years that is worsened in the last 6 months. I will follow-up with patient after his injection and reassess his symptoms at that time. Dr. Long has reviewed this note and agrees with this plan of care. This note was dictated using voice recognition software and may contain errors or omissions HPI - Data of Consult Consult date: 12/06/18 Requesting Physician: Lakshmi Green APRN Primary Care Provider: MYA Chamberlain - Consult Narrative Reason for consult: Neck pain History of present illness: Mr. Castro is a 43 year old male who presents today for consultation in regards to his neck pain. Patient states that he has had neck pain for several years he rates his pain a 5 out of 10 he has numbness and tingling in both arm. She does have an MRI showing degenerative changes and disc bulge. Patient has completed physical therapy with minimal relief. Patient currently on anti-inflammatories. CC: Lakshmi Green APRN [facility] History I have reviewed the patient's past medical history: Yes Medical History: Reports:: Aneurysm, Hyperlipidemia, Hypertension, Migraine, Palpitations Denies:: Diabetes Mellitus Type 1 *Have you received a flu vaccine this season?: No Other Surgeries: Yes: Colonoscopy Amputation: No Fractures: No - *Social History Smoking Status: Current every day smoker Tobacco Type: cigarettes # Packs/Day (cigarettes): 1 #Yrs smoked (if former smoker): 30 Alcohol Intake: never Alcohol Intake Frequency:: other Substance Use Type: marijuana *Occupational Status:: employed Housing: apartment Household Members: spouse *Travel in the last 8 weeks: None - Psychiatric History Expresses thoughts of harming self/others: None Suicide Plan Description: No Plan Family Hx:: Cancer, Heart Attack, Stroke Review of Systems - Review of Systems ROS General: no recent weight change, no fever, no sleep disturbances Respiratory: no cough, no shortness of air, no recurring pulmonary infections Cardiovascular/Peripheral Vascular: No chest pain, No palpitations, no edema, no shortness of breath. Gastrointestinal: no incontinence, normal bowel movements reported Genitourinary: no incontinence Musculoskeletal: Neck pain, arm pain Psychiatric: normal mood/ affect Neurological: [denies weakness in extremities], [denies balance issues] Meds Home Medications Medication Instructions Recorded Confirmed Type Omeprazole [Omeprazole 40mg 40 mg PO DAILY 11/09/17 11/01/18 History Capsule] propranolol 20 mg tablet 20 mg PO BID 11/01/18 11/01/18 History Allergies Allergy/AdvReac Type Severity Reaction Status Date / Time Penicillins Allergy Unknown Verified 10/25/18 14:40 Objective Vital signs: Pulse Resp BP 50 L 18 163/91 H 12/06/18 09:32 12/06/18 09:32 12/06/18 09:32 Narrative: Physical Exam General: Alert and oriented x3, no acute distress, pleasant and cooperative, [on room air] Lungs: Resps E/U, Symmetrical chest expansion, Eyes: PERRL Musculoskeletal: Flexion and extension of cervical spine somewhat guarded secondary to pain, deep tendon reflexes normal, strength in upper and lower extremities [5/5], normal gait noted Neurological: speech clear, automobile damage appraiser equal, no gross sensory deficits Opioid Risk Tool - Opioid
--- NOTE | 2018-12-06 11:01 | P.CONS_ITS ---
Assessment and Plan (1) Degenerative disc disease, cervical Current visit: Yes Status: Chronic Category: Medical Code(s): M50.30 - Other cervical disc degeneration, unspecified cervical region (2) Cervical radiculopathy Current visit: Yes Status: Chronic Category: Medical Code(s): M54.12 - Radiculopathy, cervical region - Assessment and plan all Dx Assessment and Plan for all problems:: We will schedule C5-C6 cervical epidural steroid injection for the patient. He is not on any anticoagulation therapy is continuing a home stretching regimen. He is currently on anti-inflammatories he has had this pain for several years that is worsened in the last 6 months. I will follow-up with patient after his injection and reassess his symptoms at that time. Dr. Long has reviewed this note and agrees with this plan of care. This note was dictated using voice recognition software and may contain errors or omissions HPI - Data of Consult Consult date: 12/06/18 Requesting Physician: Lakshmi Green APRN Primary Care Provider: MYA Chamebrlain - Consult Narrative Reason for consult: Neck pain History of present illness: Mr. Castro is a 43 year old male who presents today for consultation in regards to his neck pain. Patient states that he has had neck pain for several years he rates his pain a 5 out of 10 he has numbness and tingling in both arm. She does have an MRI showing degenerative changes and disc bulge. Patient has completed physical therapy with minimal relief. Patient currently on anti-inflammatories. CC: Lakshmi Green APRN [facility] History I have reviewed the patient's past medical history: Yes Medical History: Reports:: Aneurysm, Hyperlipidemia, Hypertension, Migraine, Palpitations Denies:: Diabetes Mellitus Type 1 *Have you received a flu vaccine this season?: No Other Surgeries: Yes: Colonoscopy Amputation: No Fractures: No - *Social History Smoking Status: Current every day smoker Tobacco Type: cigarettes # Packs/Day (cigarettes): 1 #Yrs smoked (if former smoker): 30 Alcohol Intake: never Alcohol Intake Frequency:: other Substance Use Type: marijuana *Occupational Status:: employed Housing: apartment Household Members: spouse *Travel in the last 8 weeks: None - Psychiatric History Expresses thoughts of harming self/others: None Suicide Plan Description: No Plan Family Hx:: Cancer, Heart Attack, Stroke Review of Systems - Review of Systems ROS General: no recent weight change, no fever, no sleep disturbances Respiratory: no cough, no shortness of air, no recurring pulmonary infections Cardiovascular/Peripheral Vascular: No chest pain, No palpitations, no edema, no shortness of breath. Gastrointestinal: no incontinence, normal bowel movements reported Genitourinary: no incontinence Musculoskeletal: Neck pain, arm pain Psychiatric: normal mood/ affect Neurological: [denies weakness in extremities], [denies balance issues] Meds Home Medications Medication Instructions Recorded Confirmed Type Omeprazole [Omeprazole 40mg 40 mg PO DAILY 11/09/17 11/01/18 History Capsule] propranolol 20 mg tablet 20 mg PO BID 11/01/18 11/01/18 History Allergies Allergy/AdvReac Type Severity Reaction Status Date / Time Penicillins Allergy Unknown Verified 10/25/18 14:40 Objective Vital signs:
== END ==
PROVIDERS: PCP Physician Assistant; Visit Provider Clinical Nurse Specialist Family Health
DX: M50.10 Cervical disc disorder with radiculopathy, unspecified cervical region (principal)
CPT/HCPCS: 99202

== ENCOUNTER 2018-12-23 09:30 | Outpatient (RCR) | payer OTHER, SELFPAY | END 2018-12-23 09:35 | disposition home or self-care (01) | LOC: PT 09:30 | PROVIDERS: Visit Provider Physician Assistant Medical | DX: M54.2 Cervicalgia (principal) | CPT/HCPCS: 97163 ==

== ENCOUNTER → 2019-01-09 14:56 | Outpatient (POV) | payer OTHER, SELFPAY ==
[2019-01-09 15:19] VITALS: BP 144/94; PULSE 80; RESP 18; O2SAT 98; BMI 20.4
--- NOTE | 2019-01-10 08:30 | HMH.PAINSOAP ---
[facility] Pain Management SOAP Note Subjective:: Patient is a pleasant 43-year-old white male who presents today for follow-up after cervical epidural steroid injection. He does rate his pain a 7 out of 10 however he says his symptoms have decreased up to 80%. Patient is able to move his arm and is much more functional. He is also got his strength back in his left arm. He would like to repeat the injection just to see if he can get any added benefit. He is not on any anticoagulation therapy. He continues a home stretching program. He is also on anti-inflammatories. ROS General: no recent weight change, no fever, no sleep disturbances Respiratory: no cough, no shortness of air, no recurring pulmonary infections Cardiovascular/Peripheral Vascular: No chest pain, No palpitations, no edema, no shortness of breath. Gastrointestinal: no incontinence, normal bowel movements reported Genitourinary: no incontinence Musculoskeletal: Neck pain, left arm pain Psychiatric: normal mood/ affect, [denies depression], [denies anxiety] Neurological: [denies weakness in extremities], [denies balance issues] Objective:: Physical Exam General: Alert and oriented x3, no acute distress, pleasant and cooperative, [on room air] Lungs: Resps E/U, Symmetrical chest expansion, Eyes: PERRL Musculoskeletal: Flexion and extension of cervical spine somewhat guarded secondary to pain, deep tendon reflexes normal, strength in upper and lower extremities [5/5], normal gait noted Neurological: speech clear, 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 He is not on any anticoagulation therapy. I will follow-up with him after his injection and reassess his symptoms at that time. Dr. Long has reviewed this note and agrees with this plan of care. This note was dictated using voice recognition software and may contain errors or omissions
--- NOTE | 2019-01-10 08:33 | P.CONS_ITS ---
[facility] Pain Management SOAP Note Subjective:: Patient is a pleasant 43-year-old white male who presents today for follow-up after cervical epidural steroid injection. He does rate his pain a 7 out of 10 however he says his symptoms have decreased up to 80%. Patient is able to move his arm and is much more functional. He is also got his strength back in his left arm. He would like to repeat the injection just to see if he can get any added benefit. He is not on any anticoagulation therapy. He continues a home stretching program. He is also on anti-inflammatories. ROS General: no recent weight change, no fever, no sleep disturbances Respiratory: no cough, no shortness of air, no recurring pulmonary infections Cardiovascular/Peripheral Vascular: No chest pain, No palpitations, no edema, no shortness of breath. Gastrointestinal: no incontinence, normal bowel movements reported Genitourinary: no incontinence Musculoskeletal: Neck pain, left arm pain Psychiatric: normal mood/ affect, [denies depression], [denies anxiety] Neurological: [denies weakness in extremities], [denies balance issues] Objective:: Physical Exam General: Alert and oriented x3, no acute distress, pleasant and cooperative, [on room air] Lungs: Resps E/U, Symmetrical chest expansion, Eyes: PERRL Musculoskeletal: Flexion and extension of cervical spine somewhat guarded secondary to pain, deep tendon reflexes normal, strength in upper and lower extremities [5/5], normal gait noted Neurological: speech clear, corporate legal assistant equal, no gross sensory deficits Assessment:: Degenerative disc disease cervical spine with cervical radiculopathy Plan:: We will do repeat C5-C6 cervical epidural steroid injection given the efficacy of the last 20 do believe it would be beneficial. He is not on any anticoagulation therapy. I will follow-up with him after his injection and reassess his symptoms at that time. Dr. Long has reviewed this note and agrees with this plan of care. This note was dictated using voice recognition software and may contain errors or omissions
== END ==
PROVIDERS: PCP Physician Assistant; Visit Provider Clinical Nurse Specialist Family Health
DX: M50.10 Cervical disc disorder with radiculopathy, unspecified cervical region (principal)
CPT/HCPCS: 99212

== ENCOUNTER → 2019-02-09 16:07 | Outpatient (CLI) | payer OTHER, SELFPAY ==
[2019-02-21 06:20] LABS: Arsenic, Blood 3 ug/L (2-23); Lead, Blood 1 ug/dL (0-4); Mercury, Blood None Detected ug/L (0.0-14.9)
== END ==
PROVIDERS: Visit Provider Physician Assistant
DX: R55 Syncope and collapse (principal)
CPT/HCPCS: 36415; 82175; 83655; 83825

== ENCOUNTER → 2019-02-28 10:12 | Outpatient (POV) | payer OTHER, SELFPAY ==
[2019-02-28 10:35] VITALS: BP 151/84; PULSE 58; RESP 18; O2SAT 98; BMI 23.1
--- NOTE | 2019-02-28 10:49 | HMH.PAINSOAP ---
[facility] Pain Management SOAP Note Subjective:: Patient is a pleasant 43-year-old white male who presents today for follow-up after his second cervical epidural steroid injection. Patient reports decreased relief with second injection. he does rate his pain 5 out of 10 today, however, he states that he is having headaches at the base of his skull . He does report decreased pain to bilateral arms but is having numbness and tingling to his first 3 fingers return on the left side. ROS General: no recent weight change, no fever, no sleep disturbances Respiratory: no cough, no shortness of air, no recurring pulmonary infections Cardiovascular/Peripheral Vascular: No chest pain, No palpitations, no edema, no shortness of breath. Gastrointestinal: no incontinence, normal bowel movements reported Genitourinary: no incontinence Musculoskeletal: Neck pain, left arm pain Psychiatric: normal mood/ affect, [denies depression], [denies anxiety] Neurological: [denies weakness in extremities], [denies balance issues], complaints of headache. Objective:: Physical Exam General: Alert and oriented x3, no acute distress, pleasant and cooperative, [on room air] Lungs: Resps E/U, Symmetrical chest expansion, Eyes: PERRL Musculoskeletal: Flexion and extension of [cervical] spine somewhat guarded secondary to pain, deep tendon reflexes normal, strength in upper and lower extremities [5/5], normal gait noted. Tenderness noted to the base of the skull bilaterally Neurological: speech clear, ordering box operator equal, no gross sensory deficits Assessment:: Degenerative disc disease cervical spine with cervical radiculopathy, occipital neuralgia Plan:: We will set the patient up for bilateral occipital blocks. Believe it would be beneficial given the symptomology of the patient. I will reassess the patient after his injection and reassess his symptoms at that time patient is on anti-inflammatories. And continuing a home stretching program. Dr. Long has reviewed this note and agrees with this plan of care. This note was dictated using voice recognition software and may contain errors or omissions
--- NOTE | 2019-02-28 10:53 | P.CONS_ITS ---
[facility] Pain Management SOAP Note Subjective:: Patient is a pleasant 43-year-old white male who presents today for follow-up after his second cervical epidural steroid injection. Patient reports decreased relief with second injection. he does rate his pain 5 out of 10 today, however, he states that he is having headaches at the base of his skull . He does report decreased pain to bilateral arms but is having numbness and tingling to his first 3 fingers return on the left side. ROS General: no recent weight change, no fever, no sleep disturbances Respiratory: no cough, no shortness of air, no recurring pulmonary infections Cardiovascular/Peripheral Vascular: No chest pain, No palpitations, no edema, no shortness of breath. Gastrointestinal: no incontinence, normal bowel movements reported Genitourinary: no incontinence Musculoskeletal: Neck pain, left arm pain Psychiatric: normal mood/ affect, [denies depression], [denies anxiety] Neurological: [denies weakness in extremities], [denies balance issues], complaints of headache. Objective:: Physical Exam General: Alert and oriented x3, no acute distress, pleasant and cooperative, [on room air] Lungs: Resps E/U, Symmetrical chest expansion, Eyes: PERRL Musculoskeletal: Flexion and extension of [cervical] spine somewhat guarded secondary to pain, deep tendon reflexes normal, strength in upper and lower extremities [5/5], normal gait noted. Tenderness noted to the base of the skull bilaterally Neurological: speech clear, field logistics coordinator equal, no gross sensory deficits Assessment:: Degenerative disc disease cervical spine with cervical radiculopathy, occipital neuralgia Plan:: We will set the patient up for bilateral occipital blocks. Believe it would be beneficial given the symptomology of the patient. I will reassess the patient after his injection and reassess his symptoms at that time patient is on anti- inflammatories. And continuing a home stretching program. Dr. Long has reviewed this note and agrees with this plan of care. This note was dictated using voice recognition software and may contain errors or omissions
== END ==
PROVIDERS: PCP Physician Assistant; Visit Provider Clinical Nurse Specialist Family Health
DX: M50.10 Cervical disc disorder with radiculopathy, unspecified cervical region (principal)
CPT/HCPCS: 99212

== ENCOUNTER → 2019-05-19 06:53 | Outpatient (CLI) | payer OTHER, SELFPAY ==
--- NOTE | 2019-05-19 06:58 | CI_ITS ---
Cerebrovascular Exam Indications: 780.2 Syncope and collapse. 780.4 Dizziness and giddiness. IMPRESSIONS 1. The bilateral vertebral arteries are patent with normal antegrade flow. 2. Study suggests less than 20% stenosis involving the right internal carotid artery. No change from the study of 25-Apr-2018. 3. Study suggests less than 20% stenosis involving the left internal carotid artery. No change from the study of 25-Apr-2018. History: Risk factors: Current tobacco use. Hypertension. Carotid duplex study. Complete study and Doppler flow study including spectral analysis, color and lyn scale imaging. Height: Height: 185.4cm. Height: 73in. Weight: Weight: 74.8kg. Weight: 164.7lb. Body mass index: BMI: 21.8kg/m^2. Body surface area: BSA: 1.96m^2. Location: Vascular laboratory. Patient status: Outpatient. Incidental findings: A thyroid cyst in the left lobe is noted incidentally. Solid nodule seen right thyroid gland. Tables: Arterial flow: + +--------+--------+ Location V [facility] V ed + +--------+--------+ Right CCA - proximal 102cm/s 24.4cm/s + +--------+--------+ Right CCA - distal 99cm/s 28.3cm/s + +--------+--------+ Right ECA 80.9cm/s 14.9cm/s + +--------+--------+ Right ICA - proximal 93.4cm/s 36.5cm/s + +--------+--------+ Right ICA - mid 104cm/s 37.2cm/s + +--------+--------+ Right ICA - distal 109cm/s 52cm/s + +--------+--------+ Right vertebral 50.5cm/s 15.3cm/s + +--------+--------+ Left CCA - proximal 113cm/s 22cm/s + +--------+--------+ Left CCA - distal 95.1cm/s 29.1cm/s + +--------+--------+ Left ECA 72.2cm/s 12.9cm/s + +--------+--------+ Left ICA - proximal 70.5cm/s 22.4cm/s + +--------+--------+ Left ICA - mid 86.1cm/s 34.5cm/s + +--------+--------+ Left ICA - distal 81cm/s 34.5cm/s + +--------+--------+ Left vertebral 51.1cm/s 14.7cm/s + +--------+--------+ Velocity ratios: + + + + + + Right, V sys Right, V ed Left, V sys Left, V ed + + + + + + Max ICA/dist CCA 1.1 1.84 0.91 1.19 + + + + + + (Report amended ) Electronically signed by: Trey Martinez [id number]
--- NOTE | 2019-05-19 06:58 | NM_ITS ---
History:SYNCOPE, CHEST PAIN Procedure: Patient received a 0.4 mg of intravenous Lexiscan, resting heart rate 72 bpm, resting blood pressure 121/71, with Lexiscan maximum heart rate achieve was 116 bpm which is less than 85% of the maximum predicted heart rate and blood pressure was 127/79. With Lexiscan patient denied any complaint of chest pain. Electrocardiogram: Resting electrocardiogram showed sinus rhythm, with Lexiscan there is less than 1.5mm ST segment depression noted from the baseline EKG. The EKG portion of the Lexiscan Myoview is nondiagnostic. Cardias Stress and Resting SPECT images: Cardias Stress and Resting SPECT images were obtained using technetium 99m Myoview 31.2 mCi stress and 9.89 mCi at rest. Gated SPECT further analysis of segmental wall motion and calculation of ejection fraction also done. Cardiac stress and resting SPECT show uniform myocardial activity without segmental perfusion abnormality, the computer derived ejection fraction is over 56% with no regional wall motion abnormality. Right ventricle is normal size and contractility. Conclusion: 1. The EKG portion of the Lexiscan Myoview is nondiagnostic. 2. No scintigraphic evidence of reversible ischemia seen, computer derived ejection fraction is 56 % with no regional wall motion abnormality, right ventricle is normal size and contractility. 3. Normal Lexiscan Myoview study.
--- NOTE | 2019-05-19 06:58 | CA_ITS ---
PROCEDURE: 2-D M-mode and color Doppler study INDICATIONS FOR THE TEST: Chest painX COPD Heart Murmur Tobacco SmokingX Palpitations Fatigue SyncopeX Edema Hypertension Diabetes Mellitus Rheumatic Fever SOBXDOEXObesity Hyperlipidemia Family History HD Additional History PATIENT INFORMATION HEIGHT: 72 WEIGHT:171 GENDER: Male B/P:128/83 2-D/M-MODE INTERPRETATION: 2-D MEASUREMENTS OBSERVED VALUES IN CMS Right Ventricular Dimension (RVDd) 1.5 Interventricular Septum (Thickness)(IVsd) .7 Left Ventricular Internal Dimensions(LVIDd) 5.2 Left Ventricular Posterior Wall (Thickness)(LVPWd) .7 Aortic Root 3.2 Aortic Cusp Separation 1.9 Left Atrial Dimensions (LAD) 3.1 2D 1. Left atrium is normal size, left ventricle is normal size, there is no concentric left ventricular hypertrophy, visually estimated ejection fraction 55% with no regional wall motion abnormality. 2. The right atrium and right ventricle are normal size and contractility. 3. The aortic valve is minimally thickened and fibrosed. 4. The mitral and tricuspid valve are grossly normal. 5. The pulmonic valve is poorly visualized. 6. No significant pericardial effusion noted. DOPPLER INTERROGATION: Doppler interrogation of the aortic, mitral and tricuspid valvular presence of mild mitral and tricuspid regurgitation, tricuspid regurgitation jet velocity is inadequate for calculation of the right ventricular systolic pressure, diastolic parameters are within normal range. CONCLUSION: 1. Normal left ventricular size, preserved left ventricular systolic function, visually estimated ejection fraction of 55% with no regional wall motion abnormality, diastolic parameters are within normal range. 2. Mild mitral and tricuspid regurgitation 3. No significant pericardial effusion noted.
== END ==
PROVIDERS: PCP Emergency Medicine; Visit Provider Internal Medicine
DX: I65.23 Occlusion and stenosis of bilateral carotid arteries (principal); R07.89 Other chest pain; I72.9 Aneurysm of unspecified site; R06.09 Other forms of dyspnea; E78.5 Hyperlipidemia, unspecified; R55 Syncope and collapse; R42 Dizziness and giddiness
CPT/HCPCS: 78452; 93017; 93306; 93880; A9502; J2785

== ENCOUNTER → 2019-11-01 13:58 | Outpatient (CLI) | payer OTHER, SELFPAY ==
[2019-11-01 14:30] LABS: Basophils % 0.2 % (0.1-2.0); Eosinophils # 0.2 K/mm3 (0.0-0.4); Eosinophils % 2.3 % (0.1-12.0); Hematocrit 47.9 % (42.0-52.0); Hemoglobin 15.6 g/dL (14.1-18.0); Lymphocytes # 1.7 K/mm3 (0.7-4.5); Lymphocytes % 17.6 % (10-50); Mean Corpuscular HGB Conc 32.7 g/dL (31.8-35.4); Mean Corpuscular Volume 88.6 fl (80-94); Mean Platelet Volume 9.5 fl (7.4-10.4); Monocytes # 0.6 K/mm3 (0.1-1.0); Monocytes % 6.4 % (1.7-9.3); Neutrophils # 7.1 K/mm3 (1.8-7.8); Neutrophils % 73.5 % (37.0-80.0); Platelet Count 248 K/mm3 (142-424); Red Blood Count 5.41 M/mm3 (4.60-6.20); Red Cell Distribution Width 13.3 % (11.5-17.5); White Blood Count 9.7 K/mm3 (4.8-10.8)
[2019-11-01 15:03] LABS: Alanine Aminotransferase 29 U/L (12-78); Albumin Level 4.3 gm/dL (3.4-5.0); Albumin/Globulin Ratio 1.4 (1.1-1.8); Alkaline Phosphatase 98 U/L (46-116); Anion Gap 15.9 mEq/L (5-15); Aspartate Amino Transferase 32 U/L (15-37); Bilirubin,Total 0.8 mg/dL (0.2-1.0); Blood Urea Nitrogen 11 mg/dL (7-18); Calcium 10.2 mg/dL (8.5-10.1); Carbon Dioxide 30 mmol/L (21.0-32.0); Chloride 106 mmol/L (98-107); Chol/HDL Ratio 5.3 (1-3.5); Cholesterol 231 mg/dL (140-200); Creatinine,Serum 0.91 mg/dL (0.70-1.30); Estimated Glomerular Filt Rate 91 ml/min (>60); GFR (African American) 110 ML/MIN (>60); Globulin 3.1 gm/dl (1.3-3.2); Glucose 99 mg/dL (74-106); HDL Cholesterol 44 mg/dL (27-67); LDL Cholesterol 171 mg/dL (0-130); Potassium 4.9 mmoL/L (3.5-5.1); Sodium 147 mmol/L (136-145); T4 (Thyroxine) 10.7 ug/dl (4.7-13.3); Thyroid Stimulating Hormone 1.19 uIU/ml (0.358-3.740); Total Protein,Serum 7.4 gm/dL (6.4-8.2); Triglycerides 78 mg/dL (30-200); VLDL Cholesterol 16 mg/dL (0-40)
[2019-11-01 15:06] LABS: C-Reactive Protein < 0.2 mg/dL (0.0-0.9)
[2019-11-01 15:18] LABS: Erythrocyte Sedimentation Rate 7 mm/hr (0-15)
[2019-11-02 12:34] LABS: Vitamin D 25 Hydroxy 29.3 ng/mL (30.0-100.0)
== END ==
PROVIDERS: Visit Provider Physician Assistant
DX: R07.9 Chest pain, unspecified (principal); E55.9 Vitamin D deficiency, unspecified; Z79.899 Other long term (current) drug therapy
CPT/HCPCS: 80053; 80061; 82652; 84436; 84443; 85025; 85651; 86140

== ENCOUNTER → 2019-11-15 12:40 | Outpatient (CLI) | payer OTHER, SELFPAY ==
--- NOTE | 2019-11-15 12:41 | CA_ITS ---
APPROVED REPORT EXAM: Comprehensive 2D, Doppler, and color-flow Echocardiogram [employer] Mechanic: Destiny Guzman RT(R) Ht: 6 ft 1 in Wt: 165lbs BSA: 1.98 BP: 130/86 mmHg Indications: CP, smoker, Palpitations, syncope, HTN, SOB, hyperlipidemia, family history HD, murmur 2D Dimensions LVOT 2.27 cm (M/F) 1.5-2.5 M-Mode Dimensions RVDd 1.42 cm (0.9-2.6) LVDd 2.87 cm (3.5-5.7) LVDs 2.32 cm (3.5-5.7) IVSd 0.70 cm (0.6-1.1) PWd 0.61 cm (0.6-1.1) EF (Teich) 41.10% FS 19.20% EDV (Teich) 31.40 mL ESV (Teich) 18.50 mL LV Diastology E/A Ratio 1.24 Mitral Valve MV A Velocity 54.00 (40-130 cm/s) Left Ventricle Left atrium is normal size, left ventricle is normal size, there is no concentric left ventricular hypertrophy, visually estimated ejection fraction 55% with no regional wall motion abnormality. Diastolic parameters are within normal range. Right Ventricle Right atrium and right ventricular normal size and contractility. Aortic Valve Aortic valve is grossly normal, there is no aortic stenosis aortic insufficiency. Mitral Valve Mitral valve is grossly normal, there is mild mitral regurgitation. Tricuspid Valve Tricuspid valve is grossly normal, there is mild tricuspid regurgitation, tricuspid regurgitation jet velocity is inadequate for calculation of the right ventricular systolic pressure. Pulmonic Valve Pulmonic valve is poorly visualized. Great Vessels Aortic root is normal size. Pericardium No significant pericardial effusion noted. Conclusion 1. Normal left ventricular size, preserved left ventricular systolic function, visually estimated ejection fraction 55% with no regional wall motion abnormality. Diastolic parameters are within normal range. 2. Mild mitral and tricuspid regurgitation. 3. No significant pericardial effusion noted. Electronically signed by : Dequan Beckett, 11/16/2019 16:36:00
== END ==
PROVIDERS: PCP Physician Assistant; Visit Provider Physician Assistant
DX: R55 Syncope and collapse (principal)
CPT/HCPCS: 93306

== ENCOUNTER → 2020-05-01 13:01 | Outpatient (CLI) | payer OTHER, SELFPAY ==
--- NOTE | 2020-05-01 13:04 | XR_ITS ---
PROCEDURE: XR SHOULDER RT MIN 2V CLINICAL INDICATION: right shoulder pain s/p fall 04/30 The COMPARISON: No exams were available for comparison FINDINGS: No fracture or dislocation. No lytic or blastic change. There is normal mineralization. The joint spaces are well-preserved. No significant degenerative/arthritic changes. No erosive changes evident. Other findings:None. IMPRESSION: No acute findings. Dictated by: Trey Martinez MD 05/01/2020 13:38 Electronically signed by Trey Martinez MD in [facility] 05/01/2020 13:38
== END ==
PROVIDERS: PCP Emergency Medicine; Visit Provider Physician Assistant
DX: M25.511 Pain in right shoulder (principal)
CPT/HCPCS: 73030

== ENCOUNTER → 2021-02-03 13:57 | Outpatient (CLI) | payer OTHER, SELFPAY ==
[2021-02-03 14:13] LABS: Alanine Aminotransferase 26 U/L (12-78); Albumin Level 5.4 g/dl (3.5-5.0); Albumin/Globulin Ratio 1.8 (1.1-1.8); Alkaline Phosphatase 90 U/L (38-126); Anion Gap 16.8 mEq/L (5-15); Aspartate Amino Transferase 37 U/L (17-59); Bilirubin,Total 1.3 mg/dl (0.2-1.3); Blood Urea Nitrogen 14 mg/dl (9-20); Calcium 10.7 mg/dl (8.4-10.2); Carbon Dioxide 27 mmol/L (22.0-30.0); Chloride 102 mmol/L (98-107); Chol/HDL Ratio 7.1 (1-3.5); Cholesterol 268 mg/dl (140-200); Estimated Glomerular Filt Rate 105 ml/min (>60); GFR (African American) 126 ML/MIN (>60); Glucose 109 mg/dl (74-100); HDL Cholesterol 38 mg/dl (40-60); Potassium 4.8 mmoL/L (3.5-5.1); Sodium 141 mmol/L (136-145); Total Protein,Serum 8.4 g/dl (6.3-8.2); Triglycerides 146 mg/dl (30-150); VLDL Cholesterol 29 mg/dL (0-40)
[2021-02-03 14:23] LABS: C-Reactive Protein 0.9 mg/L (0-4); Direct LDL Cholesterol 181.94 mg/dL (100-129)
[2021-02-03 14:29] LABS: 25-OH Vitamin D, Total 31.8 ng/mL (30-100)
[2021-02-03 14:44] LABS: Thyroid Stimulating Hormone 0.96 uIU/mL (0.465-4.68)
[2021-02-03 14:52] LABS: Basophils % 0.3 % (0.1-2.0); Eosinophils # 0.2 K/mm3 (0.0-0.4); Hematocrit 47.2 % (42.0-52.0); Hemoglobin 15.9 g/dL (14.1-18.0); Lymphocytes # 1.8 K/mm3 (0.7-4.5); Lymphocytes % 21.7 % (10-50); Mean Corpuscular HGB Conc 33.7 g/dL (31.8-35.4); Mean Corpuscular Hemoglobin 30.1 pg (27.0-31.2); Mean Corpuscular Volume 89.5 fl (80-94); Monocytes # 0.6 K/mm3 (0.1-1.0); Monocytes % 6.7 % (1.7-9.3); Neutrophils # 5.8 K/mm3 (1.8-7.8); Neutrophils % 69.3 % (37.0-80.0); Platelet Count 247 K/mm3 (142-424); Red Blood Count 5.27 M/mm3 (4.60-6.20); Red Cell Distribution Width 13.7 % (11.5-17.5); White Blood Count 8.4 K/mm3 (4.8-10.8)
[2021-02-03 15:02] LABS: Vitamin B12 327 pg/mL (239-931)
[2021-02-03 15:22] LABS: Erythrocyte Sedimentation Rate 1 mm/hr (0-15)
== END ==
PROVIDERS: Visit Provider Physician Assistant
DX: R25.1 Tremor, unspecified (principal)
CPT/HCPCS: 80053; 80061; 82306; 82607; 84443; 85025; 85651; 86140

== ENCOUNTER → 2021-02-04 11:24 | Outpatient (CLI) | payer OTHER, SELFPAY ==
[2021-02-06 08:45] LABS: Calcium, Ionized 5.7 mg/dL (4.5-5.6)
== END ==
PROVIDERS: Visit Provider Physician Assistant
DX: E83.52 Hypercalcemia (principal)
CPT/HCPCS: 36415; 82330; 83970

== ENCOUNTER → 2021-02-09 08:01 | Outpatient (CLI) | payer OTHER, SELFPAY ==
[2021-02-11 06:04] LABS: Calcium, Urine 9.7 mg/dL (Not Estab.)
[2021-02-13 12:44] LABS: Calcium, Urine 24hr 209 mg/24 hr (47-462)
== END ==
PROVIDERS: PCP Physician Assistant; Visit Provider Physician Assistant
DX: E34.9 Endocrine disorder, unspecified (principal); E83.52 Hypercalcemia
CPT/HCPCS: 82340

== ENCOUNTER → 2021-02-21 07:31 | Outpatient (CLI) | payer OTHER, SELFPAY ==
--- NOTE | 2021-02-21 07:31 | MR_ITS ---
PROCEDURE: MR ANGIO HEAD WO CON CLINICAL INDICATION: aneursym COMPARISON: MR MRAHW/O MRA-HEAD W/O from 12/24/[address] angio head from 08/02/2018 TECHNIQUE: Routine multiplanar multi echo sequences are performed without gadolinium enhancement. FINDINGS: There is minor atheromatous changes of the bilateral internal carotid arteries without evidence of significant stenosis. There is a focal lateral outpouching noted in the cavernous segment of the left internal carotid artery measuring 3 millimeters, demonstrates no significant interval change compared to prior study. There is minor outpouching noted at the origin of the left ophthalmic artery, likely represents infundibulum. No other evidence of aneurysm. The bilateral HUDSON and MCA are unremarkable. Trifurcation of the bilateral MCA noted with the unremarkable M1 and M2 segments. Bilateral intracranial vertebral arteries demonstrate no focal stenosis. Codominant bilateral vertebral arteries are noted, form the normal caliber basilar trunk. The basilar trunk terminates as the paired bilateral superior cerebellar and posterior cerebral arteries. The anterior and posterior communicating arteries are unremarkable. The major dural venous sinuses are unremarkable within the limitations of the study. 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 No other aneurysms or stenosis noted. Dictated by: Allie Cevallos 02/21/2021 11:28 Allie Cevallos in [facility] 02/21/2021 11:28
--- NOTE | 2021-02-21 08:07 | XR_ITS ---
PROCEDURE: XR DEXA AXIAL SKELETON CLINICAL HISTORY: elevated calcium and PTH COMPARISON: No exams were available for comparison FINDINGS: The right hip BMD is 0.960 grams/square centimeter with a T-score of -0.5. The left hip BMD is 0.923 grams/square centimeter with a T-score of -0.7. The lumbar spine BMD is 0.984 grams/square centimeter with a T-score of -1.0. IMPRESSION: This patient is considered normal according to the World Health Organization criteria. Fracture risk is low. Dictated by: Allie Cevallos 02/21/2021 11:42 Allie Cevallos in [facility] 02/21/2021 11:42
== END ==
PROVIDERS: PCP Physician Assistant; Visit Provider Physician Assistant
DX: I72.9 Aneurysm of unspecified site (principal); E34.9 Endocrine disorder, unspecified; E83.52 Hypercalcemia
CPT/HCPCS: 70544; 77080

== ENCOUNTER 2021-03-24 16:00 | Outpatient (RCR) | payer OTHER, SELFPAY ==
--- NOTE | 2021-03-11 13:57 | HMH.PTOPEV ---
PT Outpatient Evaluation Rehab PT Outpatient Evaluation Start: 03/11/21 13:44 Freq: Status: Active Protocol: Document 03/11/21 13:44 ANI (Rec: 03/11/21 13:57 ANI [id number]) Electronically Signed By Parth Ingram, PT 03/11/21 13:44 Outpatient Therapy Subjective History Subjective History Patient is a 45 year old male presenting to outpatient PT with reports of chronic cervical spine pain with intermittent BUE radicular symptoms starting approximately 3 years ago. Symptoms have progressively gotten worse over the past year per patient report. Most recent imaging indicates multi-level DDD, spondylosis and bulging discs. Comorbidities include hx of L carotid anyeurysm, hyperthyroidism, HL and anxiety. Chief Complaint Pain,Stiff,Paresthesia Symptom Type Ache,Dull Symptoms Relieved By Rest/Positioning,Prescription Meds Symptoms Aggravated By Physical Activity,Lifting Prior Functional Limitations Reaching,Lifting,Housework Current Functional Limitations Reaching,Lifting,Housework Symptom Description Constant but Variable Level of pain today (0-10) 6 Pain scale - at its best (0-10) 3 Pain scale - at its worst (0-10) 9 Cervical Eval Palpation Cervical Muscles R Cervical Paraspinal,L Cervical Paraspinal,R Suboccipital,L Suboccipital Cervical/Thoracic Palpation Findings Tenderness Posture Head/C-Spine Posture Sitting Position C-Spine Flattened Head/C-Spine Posture Standing Position C-Spine Flattened Flexibility Deficits Upper Trapezius Muscle Length (R) Moderate Tightness,(L) Moderate Tightness Levaetor Scapulae Muscle Length (R) Moderate Tightness,(L) Moderate Tightness Pectoralis Minor Muscle Length (R) Moderate Tightness,(L) Moderate Tightness Passive Joint Mobility Cervical PIVM WNL: R OA L OA R AA L AA R C2/3 L C2/3 R C3/4 L C3/4 R C4/5
== END 2021-03-24 16:05 | disposition home or self-care (01) ==
LOC: PT 16:00
PROVIDERS: PCP Physician Assistant; Visit Provider Physician Assistant
DX: M54.2 Cervicalgia (principal)
CPT/HCPCS: 97014; 97110; 97140; 97163; G0283

== ENCOUNTER → 2021-09-03 07:23 | Outpatient (CLI) | payer OTHER, SELFPAY ==
--- NOTE | 2021-09-03 07:23 | MR_ITS ---
PROCEDURE INFORMATION: Exam: MR Cervical Spine Without Contrast Exam date and time: 09/03/2021 7:23 AM Age: 45 years old Clinical indication: Patient HX: PT C/O neck pain and hand numbness with no recent known injury or trauma. ; Additional info: Hands numb TECHNIQUE: Imaging protocol: Multiplanar magnetic resonance images of the cervical spine without contrast. COMPARISON: [facility] – [place] cervical spine wo con 08/02/2018 7:56 AM FINDINGS: Vertebrae: No acute fracture or significant listhesis. Marrow signal is within normal limits, no lytic lesion or metastatic pattern. Degenerative osteoarthrosis anteriorly C1-C2. Straightening of cervical lordosis suggests muscle spasm. Some deformities of the posterior elements as detailed at the levels below, unchanged compared with the previous study. Spinal cord: The cervical cord remains normal in signal with no cord compression. Minimal impingement on the posterior-right surface of the cord at C2-C3 as detailed above, with posterior hypertrophy on the right, unchanged. No syrinx. No mass. C2-C3: Shallow posterior disc bulge. Asymmetric hypertrophy of the posterior elements on the right with slight indentation of the thecal sac posteriorly series 5, images 1 -2, unchanged compared with the prior exam, with slight impingement on the right posterolateral surface of the cord. No significant spinal stenosis or C2 foraminal stenoses. C3-C4: Shallow posterior disc bulge. Minimal posterolateral uncovertebral spurs. No significant spinal or foraminal stenoses. C4-C5: Shallow posterior disc bulge. Lateral uncovertebral spurs greater toward the right and slight facet hypertrophy on the right. The right C5 foramen appears moderately stenosed series 5, image 12. Left C5 foramen is mildly narrowed. No significant central stenosis. C5-C6: No acute findings. Minimal spondylosis. Facet arthropathy appears greater on the right, and there is deformity of the posterior elements on the right with apparent facet malalignment or deformity sagittal series 2, image 5, and sagittal series 3 images 4-5, possibly sequela of an old facet injury or congenital anomaly, no plain x-rays or CT available to compare. This is chronic compared with the prior exam. However, there is no significant spinal or foraminal stenosis at this level. C6-C7: Chronic asymmetry of the posterior elements with possible partial ankylosis of the right facet joint sagittal series 3, image 4, no plain x-ray or CT available to compare. There is slightly exaggerated lordotic curvature at the C6-C7 level. Left posterolateral disc-osteophyte complex indents the thecal sac on the left and at least moderately stenoses the left C7 foramen , with likely nerve impingement, axial series 5, images 20-22. C7-T1: No significant abnormality. No stenosis. Soft tissues: No acute findings. No prevertebral swelling. Brain: Visualized posterior fossa and brainstem are unremarkable. Paranasal sinuses: Mild chronic sinus disease, sphenoid mucosal thickening. No air-fluid levels, as visualized. Vertebral arteries: Flow in both vertebral arteries. IMPRESSION: 1. Some chronic deformities and asymmetries of the posterior elements, greatest on the right at C5-C6 which may be congenital or sequela of old trauma; no plain x-rays or CT available to compare. No acute fracture or significant listhesis, since the prior study. 2. Cervical muscle spasm. 3. No significant central spinal stenosis. 4. At least moderate stenosis of the left C7 foramen, a posterolateral disc-osteophyte complex impinging on the exiting left C7 nerve root, correlate for radiculopathy. 5. Moderate degenerative stenos
== END ==
PROVIDERS: PCP Physician Assistant; Visit Provider Physician Assistant
DX: R20.0 Anesthesia of skin (principal); R20.2 Paresthesia of skin; M54.2 Cervicalgia
CPT/HCPCS: 72141; 76376

== ENCOUNTER → 2021-10-15 15:20 | Outpatient (CLI) | payer OTHER, SELFPAY | PROVIDERS: PCP Physician Assistant; Visit Provider Nurse Practitioner | DX: Z20.822 Contact with and (suspected) exposure to COVID-19 (principal) | CPT/HCPCS: C9803; U0003; U0005 ==

== ENCOUNTER → 2021-12-09 10:07 | Outpatient (CLI) | payer OTHER, SELFPAY ==
--- NOTE | 2021-12-09 10:10 | US_ITS ---
FINAL REPORT CLINICAL HISTORY: .lt test pain x 5 mos-- pt states hx of lt epidymis surg x 4 yrs ago--no inj or fever FINDINGS: Sonographic images of the scrotum were obtained. The right testicle measures 2.6 x 5.1 x 3.5 cm. No masses are identified. There is normal blood flow. The left testicle measures 2.2 x 3.4 x 3.6 cm. There are 2 cystic areas in the left testicle. The smaller one measures 5 mm. The larger one is multi-septated, favor benign. There is normal blood flow. The left epididymis is not seen consistent with prior surgical removal. IMPRESSION: Cystic areas in the left testicle as detailed above. Reviewed, Interpreted and Dictated by Trav Andrew III, MD Transcribed by Hailee Peterson Authenticated by Trav Andrew III, MD on 12/09/2021 11:57:08 AM [facility]
== END ==
PROVIDERS: PCP Physician Assistant; Visit Provider Physician Assistant
DX: N50.812 Left testicular pain (principal)
CPT/HCPCS: 76870

== ENCOUNTER 2022-01-30 16:01 | Emergency (ER) | payer OTHER, SELFPAY ==
[2022-01-30 16:02] VITALS: BP 142/84; PULSE 72; RESP 18; TEMP 36.8; O2SAT 100; BMI 31.1
--- NOTE | 2022-01-30 16:34 | XR_ITS ---
PROCEDURE INFORMATION: Exam: XR Right Foot Exam date and time: 01/30/2022 4:35 PM Age: 46 years old Clinical indication: Injury or trauma; Blunt trauma; Foot; Right; Injury date: 01/30/22; Injury details: Patient kicked a metal object; Pain at 1st digit TECHNIQUE: Imaging protocol: XR Right foot. Views: 3 or more views. COMPARISON: No relevant prior studies available. FINDINGS: Bones/joints: A bipartite medial hallux sesamoid bone which may be developmental versus of indeterminate age, correlate for point tenderness. The lateral view also shows curvilinear calcifications along the plantar surface of the hallux sesamoids, see series 3, which could be sequela of trauma or degenerative in nature. A longitudinal fracture extends through the lateral aspect of the base of the 1st distal phalanx, fracture line extending through the articular cortex at the lateral margin of the interphalangeal joint, likely a recent nondisplaced fracture. The avulsed fracture fragment measures slightly over 8 mm length and approximately 4 mm transverse diameter on AP series 1. There are no lytic skeletal lesions seen. No significant arthritic deformities. Soft tissues: Soft tissue swelling in the great toe.No radiopaque foreign bodies seen. IMPRESSION: 1. Recent appearing 8 mm fracture of the lateral aspect of the base of the 1st distal phalanx, extending into the interphalangeal joint of the great toe. 2. A bipartite medial hallux sesamoid which may be developmental or due to of indeterminate age, correlate for point tenderness.
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
[2022-01-30 18:18] VITALS: BP 142/84; PULSE 72; RESP 18; TEMP 36.8
== END 2022-01-30 18:21 | disposition home or self-care (01) ==
PROVIDERS: Emergency Provider Nurse Practitioner; PCP Physician Assistant
DX: S92.424A Nondisplaced fracture of distal phalanx of right great toe, initial encounter for closed fracture (principal); W22.8XXA Striking against or struck by other objects, initial encounter; Y93.55 Activity, bike riding; Y92.488 Other paved roadways as the place of occurrence of the external cause; I10 Essential (primary) hypertension; E78.5 Hyperlipidemia, unspecified; F17.210 Nicotine dependence, cigarettes, uncomplicated; Z88.0 Allergy status to penicillin
CPT/HCPCS: 29515; 73630; 99213; G0463

== ENCOUNTER 2022-03-13 11:48 | Emergency (ER) | payer OTHER, SELFPAY ==
[2022-03-13 11:56] VITALS: BP 110/89; PULSE 95; RESP 16; TEMP 36.9; O2SAT 99; BMI 23.7
--- NOTE | 2022-03-13 12:05 | XR_ITS ---
FINAL REPORT CLINICAL HISTORY: cut by glass, anterior forearm today. 2 vertical laceration. FINDINGS: 2 views of the left forearm were obtained. There is no acute fracture or dislocation. The joints are intact. There are no soft tissue abnormalities. IMPRESSION: No acute process. Reviewed, Interpreted and Dictated by Trav Andrew III, MD Transcribed by Maria Luz Chase Authenticated and [facility]
[2022-03-13 12:22] VITALS: PULSE 95; RESP 16; TEMP 36.9; O2SAT 99; BMI 23.8
--- NOTE | 2022-03-13 12:39 | HMH.EDUTC ---
[facility] [place] Disposition Clinical Impression: Need for Tdap vaccination Laceration of left forearm without complication Qualifiers: Encounter type: initial encounter Qualified Code(s): S51.812A - Laceration without foreign body of left forearm, initial encounter Laceration of left forearm Qualifiers: Encounter type: initial encounter Qualified Code(s): S51.812A - Laceration without foreign body of left forearm, initial encounter Disposition: Home, Self-Care Condition on Discharge: Good Instructions: How to Care for a Laceration After Repair, DI for Laceration Repair -- Toña, Tetanus, Diphtheria, Pertussis (Tdap) Vaccine Additional Instructions: Keep the wounds clean and dry. Keep a dressing on them if you are going to be getting it dirty. Watch the for signs of infection, such as redness, swelling, drainage, fever. etc. Take tylenol or ibuprofen for pain. Follow up with your regular doctor for a wound recheck in 3 days. Return 10 days to have the sutures removed. GO TO THE ER FOR ANY WORSENING SYMPTOMS OR CONCERNS. Prescriptions: cephALEXin [cephALEXin 500mg capsule] 500 mg PO Q6H 10 Days #40 cap Transmission Status: Received by [facility] Referrals: Jess Dangelo PA [Primary Care Provider] - Time of Disposition: 14:14 Medical Decision Making - Medical Records Medical records reviewed: No: I reviewed the patient's medical records. - Red Inquiry Pt receiving controlled substance: No Vital Signs: 03/13/22 11:56 03/13/22 12:22 03/13/22 14:21 Temperature 98.4 F 98.4 F 98.4 F Temperature Source Oral Oral Pulse Rate 95 H Pulse Rate [Radial] 95 H 95 H Respiratory Rate 16 16 16 Blood Pressure 110/89 Blood Pressure [Right Arm] 110/89 Blood Pressure Mean [Right Arm] 96 Blood Pressure Position [Right Arm] Sitting 02 Sat by Pulse Oximetry 99 99 Oxygen Delivery Method Room Air Orders (Tests/Meds): ED MEDICATIONS Discontinued Medications Generic Name Dose Route Start Last Admin Trade Name Freq PRN Reason Stop Dose Admin Tetanus/Reduced Diphtheria/Acell Pertussis 0.5 ml 03/13/22 14:12 03/13/22 14:20 Tet/Diphth/Pert-Adult 0.5ml Syringe IM 03/13/22 14:13 0.5 ml .ONCE ONE Administration [facility] [place] HPI - General Stated complaint: AO [id number] lac to left arm,home accident Time Seen by Provider: 03/13/22 12:39 Source of Information: Patient Description of Symptoms (Recalled from Triage Doc. by RN): patient comes in for laceration on left arm. HEENT Symptoms (Recalled from RN notes): No Resp Symptoms (Recalled from RN notes): No Skin Symptoms (Recalled from RN notes): Yes MS Symptoms (Recalled from RN notes): No Functional Status (Recalled from RN notes): wnl - History of Present Illness Provider Complaint: He was working with an [employer] window today when the glass fell out of the frame and came down on his left forearm. He recieved 2 lacerations to the underside of the left arm. Each measures 3 cm. There are no deep tissue, tendon or muscle damagme noted. No foreign body or glass. His tdap is not up to date. He denies any other injury. - Related Data Home Medications Medication Instructions Recorded Confirmed omeprazole 40 mg capsule,delayed 40 mg PO DAILY cap 11/26/21 02/06/22 release Previous Rx's Medication Instructions Recorded buspirone 5 mg tablet 5 mg PO HS #90 tab 10/16/21 polyethylene glycol 3350 17 17 g PO DAILY #238 g 10/16/21 gram/dose oral powder gabapentin 300 mg capsule 300 mg PO BID #60 cap 11/26/21 Ibuprofen [Ibuprofen 800mg 800 mg PO TIDP PRN #20 tab 01/30/22 Tablet] sulfamethoxazole 800 1 tab PO BID 10 Days #20 tab 02/05/22 mg-trimethoprim 160 mg tablet cephALEXin [cephALEXin 500mg 500 mg PO Q6H 10 Days #40 cap 03/13/22 capsule] Allergies Allergy/AdvReac Type Severity Reaction Status Date / Time Penicillins Allergy Unknown Verified 03/13/22 12:26 - Worker's Comp Is this a Wo
[2022-03-13 14:21] VITALS: BP 110/89; PULSE 95; RESP 16; TEMP 36.9
== END 2022-03-13 14:21 | disposition home or self-care (01) ==
PROVIDERS: Emergency Provider Nurse Practitioner Family; PCP Physician Assistant
DX: S51.812A Laceration without foreign body of left forearm, initial encounter (principal); Z23 Encounter for immunization; Z88.0 Allergy status to penicillin
CPT/HCPCS: 12002 ×2; 73090; 90471; 90715; 99212; G0463

== ENCOUNTER → 2022-08-11 15:40 | Outpatient (CLI) | payer OTHER, SELFPAY ==
[2022-08-11 18:30] LABS: Basophils # 0.1 K/mm3 (0-0.2); Basophils % 0.9 % (0.1-2.0); Eosinophils # 0.3 K/mm3 (0.0-0.4); Eosinophils % 3.4 % (0.1-12.0); Hemoglobin 15.4 g/dL (14.1-18.0); Lymphocytes # 2.1 K/mm3 (0.7-4.5); Lymphocytes % 22.9 % (10-50); Mean Corpuscular HGB Conc 33.5 g/dL (31.8-35.4); Mean Corpuscular Hemoglobin 29.7 pg (27.0-31.2); Mean Corpuscular Volume 88.6 fl (80-94); Mean Platelet Volume 9.3 fl (7.4-10.4); Monocytes # 0.7 K/mm3 (0.1-1.0); Monocytes % 7.2 % (1.7-9.3); Neutrophils % 65.5 % (37.0-80.0); Platelet Count 239 K/mm3 (142-424); Red Blood Count 5.19 M/mm3 (4.60-6.20); Red Cell Distribution Width 13.3 % (11.5-17.5); White Blood Count 9.2 K/mm3 (4.8-10.8)
[2022-08-11 18:54] LABS: Erythrocyte Sedimentation Rate 11 mm/hr (0-15)
[2022-08-11 19:47] LABS: Alanine Aminotransferase 29 U/L (12-78); Alkaline Phosphatase 99 U/L (38-126); Anion Gap 15.6 mEq/L (5-15); Aspartate Amino Transferase 37 U/L (17-59); Bilirubin,Total 0.5 mg/dl (0.2-1.3); Blood Urea Nitrogen 19 mg/dl (9-20); Calcium 10.4 mg/dl (8.4-10.2); Carbon Dioxide 30 mmol/L (22.0-30.0); Chloride 101 mmol/L (98-107); Cholesterol 234 mg/dl (140-200); Estimated Glomerular Filt Rate 91 ml/min (>60); GFR (African American) 110 ML/MIN (>60); Globulin 2.5 g/dL (1.3-3.2); Glucose 77 mg/dl (74-100); HDL Cholesterol 39 mg/dl (40-60); Potassium 4.6 mmoL/L (3.5-5.1); Sodium 142 mmol/L (136-145); Total Protein,Serum 7.5 g/dl (6.3-8.2); Triglycerides 238 mg/dl (30-150); VLDL Cholesterol 48 mg/dL (0-40)
[2022-08-11 20:05] LABS: Direct LDL Cholesterol 157.12 mg/dL (100-129)
[2022-08-11 20:18] LABS: Prostate Specific Ag Screen 0.5 ng/ml (0.0-4.0); Thyroid Stimulating Hormone 0.65 uIU/mL (0.465-4.68)
[2022-08-12 10:49] LABS: Intact Parathyroid Hormone 54.1 pg/mL (7.5-53.5)
[2022-08-12 11:26] LABS: Vitamin B12 306 pg/mL (239-931)
[2022-08-13 07:25] LABS: RA Latex Turbid. <10.0 IU/mL (<14.0)
[2022-08-13 14:50] LABS: Anti-Centromere B Antibodies <0.2 AI (0.0-0.9); Anti-DNA (DS) Ab Qn 1 IU/mL (0-9); Anti-Jo-1 <0.2 AI (0.0-0.9); Anti-Smith Antibody <0.2 AI (0.0-0.9); Antichromatin Antibodies <0.2 AI (0.0-0.9); Antiscleroderma-70 Antibodies <0.2 AI (0.0-0.9); RNP Antibodies <0.2 AI (0.0-0.9); Sjogren's Anti-SS-A 0.2 AI (0.0-0.9); Sjogren's Anti-SS-B <0.2 AI (0.0-0.9)
[2022-08-14 00:15] LABS: Anti-Cyclic Citrullinated Pept 4 units (0-19)
== END ==
PROVIDERS: PCP Physician Assistant; Visit Provider Physician Assistant
DX: M25.50 Pain in unspecified joint (principal); Z12.5 Encounter for screening for malignant neoplasm of prostate
CPT/HCPCS: 80053; 80061; 82607; 83970; 84443; 85025; 85651; 86140; 86200; 86225; 86235; 86431; G0103

== ENCOUNTER 2022-09-22 07:52 | Day surgery (SDC) | payer OTHER, SELFPAY ==
[2022-09-18 16:57] VITALS: BMI 22.8
[2022-09-22] VITALS (8 sets, daily range): BP systolic 97–129; BP diastolic 62–87; PULSE 58–89; RESP 18–22; TEMP 36.6–36.8; O2SAT 92–100
--- NOTE | 2022-09-22 09:38 | HMH.SCOPE ---
Procedure: Date: 09/22/22 Patient Date of :: 1975 Procedure Performed:: Colonoscopy (aborted secondary to poor bowel preparation) Indications:: History of colon polyps Performing Provider:: Yusuf Prajapati MD Referring Provider:: . Sedation:: Monitored anesthesia care Procedure:: After informed consent was obtained the patient was taken to the endoscopy suite. Sedation ensued after the patient was transferred to the left lateral decubitus position. Pulse, blood pressure, and oxygen saturation were monitored throughout the procedure. Digital rectal exam revealed no significant abnormality. The colonoscope was placed in position. Large volume of formed stool immediately encountered. The decision was made to abort the procedure. The colonoscope was carefully removed and the patient was transferred to recovery in stable condition. Please see findings and specimens below for detail. Findings:: Procedure aborted secondary to exceedingly poor bowel preparation Specimens:: None Recommendations:: Short-term repeat colonoscopy with extended bowel preparation. Gastroenterology consultation warranted. If gastroenterology consultation scheduled his repeat colonoscopy will be deferred to their service. Complications:: Aborted secondary to exceedingly poor bowel preparation Estimated blood obtained (mL): 0
--- NOTE | 2022-09-22 09:43 | EXP.ANES.CKL ---
[facility] Disclaimer: The information contained in this section may have been updated after the patient was seen, as this information can be updated by other users. Medical History Anxiety Carotid artery stenosis Chest pain Dizziness Dyspnea Head ache Hyperlipidemia Left epididymitis Syncope Tremor Weakness Surgical History H/O epididymectomy Family History Other Family history of cancer Family history of hypertension Social History Smoking Status: Current every day smoker tobacco type: cigarettes packs per day: 1 second hand exposure: Yes alcohol intake: never substance use type: marijuana current occupational status: employed Travel in the last 8 weeks: None household members: spouse housing: apartment current occupational exposures/hazards: No caffeine: Yes [facility] Anesthesia Checklist Patient Identification Patient Identification: Arm Band and Verbal (Name & ) Structural Data Admitted From: Home Planned Operative Procedure/s: Colonoscopy Consent for Planned Operative Procedure(s) Verified: Yes NPO Status Verified Time NPO: 00:00 Additional verifications Anesthesia Reactions: No Hx Blood Transfusions: No Blood Transfusion Reaction: No Airway Assessment C-Spine Mobility Assessed: Yes TMJ Mobility Assessed: Yes Dentition: Good Dentition Neurological Assessment Level of Consciousness: Awake Hx Seizures: No Numbness or tingling in extremities: No Anesthesia Plan Anesthesia Risk discussed: Yes Anesthesia Plan: Verified ASA Class: III Anesthesia Type: MAC
== END 2022-09-22 10:39 | disposition home or self-care (01) ==
PROVIDERS: PCP Physician Assistant; Visit Provider Surgery
PROC: 0DJD8ZZ Inspection of Lower Intestinal Tract, Via Natural or Artificial Opening Endoscopic (ICD-10-PCS; CPT 45330; principal; 2022-09-22 09:30)
DX: Z12.11 Encounter for screening for malignant neoplasm of colon (principal); Z91.199 Patient's noncompliance with other medical treatment and regimen due to unspecified reason; Z86.010 Personal history of colon polyps
CPT/HCPCS: 45330

== ENCOUNTER → 2022-12-17 15:55 | Outpatient (CLI) | payer OTHER, SELFPAY ==
--- NOTE | 2022-12-17 16:02 | XR_ITS ---
FINAL REPORT CLINICAL HISTORY: SOA, right side chest pain, smoker COMPARISON: 11/01/2018 FINDINGS: 2 views of the chest were obtained . The heart is normal in size. The mediastinum is within normal limits. The lungs are clear. There is no pneumothorax. Osseous structures are unremarkable. IMPRESSION: No acute cardiopulmonary process. Reviewed, Interpreted and Dictated by Trav Andrew III, MD Transcribed by Nenita Thornton Authenticated and [facility]
== END ==
PROVIDERS: PCP Physician Assistant; Visit Provider Nurse Practitioner Family
DX: R06.02 Shortness of breath (principal)
CPT/HCPCS: 71046

== ENCOUNTER → 2023-06-16 14:28 | Outpatient (CLI) | payer OTHER, SELFPAY ==
[2023-06-16 13:08] LABS: Basophils % 0.4 % (0.1-2.0); Eosinophils # 0.3 K/mm3 (0.0-0.4); Eosinophils % 3.5 % (0.1-12.0); Hematocrit 46.3 % (42.0-52.0); Hemoglobin 15.4 g/dL (14.1-18.0); Lymphocytes # 2.2 K/mm3 (0.7-4.5); Lymphocytes % 24.4 % (10-50); Mean Corpuscular HGB Conc 33.3 g/dL (31.8-35.4); Mean Corpuscular Hemoglobin 29.8 pg (27.0-31.2); Mean Corpuscular Volume 89.5 fl (80-94); Mean Platelet Volume 9.5 fl (7.4-10.4); Monocytes # 0.7 K/mm3 (0.1-1.0); Monocytes % 7.7 % (1.7-9.3); Neutrophils # 5.9 K/mm3 (1.8-7.8); Platelet Count 242 K/mm3 (142-424); Red Blood Count 5.17 M/mm3 (4.60-6.20); Red Cell Distribution Width 13.4 % (11.5-17.5); White Blood Count 9.2 K/mm3 (4.8-10.8)
[2023-06-16 14:00] LABS: Chloride 105 mmol/L (98-107); Potassium 4.5 mmoL/L (3.5-5.1); Sodium 143 mmol/L (136-145)
[2023-06-16 14:03] LABS: Alanine Aminotransferase 28 U/L (12-78); Albumin Level 4.8 g/dl (3.5-5.0); Albumin/Globulin Ratio 1.7 (1.1-1.8); Alkaline Phosphatase 83 U/L (38-126); Anion Gap 15.5 mEq/L (5-15); Aspartate Amino Transferase 43 U/L (17-59); Bilirubin,Total 0.7 mg/dl (0.2-1.3); Blood Urea Nitrogen 17 mg/dl (9-20); Calcium 10.4 mg/dl (8.4-10.2); Carbon Dioxide 27 mmol/L (22.0-30.0); Cholesterol 215 mg/dl (140-200); Estimated Glomerular Filt Rate 104 ml/min (>60); GFR (African American) 125 ML/MIN (>60); Globulin 2.9 g/dL (1.3-3.2); Glucose 104 mg/dl (74-100); Total Protein,Serum 7.7 g/dl (6.3-8.2); Triglycerides 113 mg/dl (30-150); VLDL Cholesterol 23 mg/dL (0-40)
[2023-06-16 14:04] LABS: Chol/HDL Ratio 5.4 (1-3.5); HDL Cholesterol 40 mg/dl (40-60)
[2023-06-16 14:15] LABS: Direct LDL Cholesterol 140.92 mg/dL (100-129)
[2023-06-16 14:34] LABS: Thyroid Stimulating Hormone 0.78 uIU/mL (0.465-4.68)
[2023-06-16 15:14] LABS: 25-OH Vitamin D, Total 46.1 ng/mL (30-100)
== END ==
PROVIDERS: PCP Nurse Practitioner Family; Visit Provider Nurse Practitioner Family
DX: I10 Essential (primary) hypertension (principal); R10.9 Unspecified abdominal pain; R06.02 Shortness of breath; M54.2 Cervicalgia; M54.12 Radiculopathy, cervical region; F17.210 Nicotine dependence, cigarettes, uncomplicated
CPT/HCPCS: 80053; 80061; 82306; 84443; 85025; 87086

== ENCOUNTER → 2023-06-24 07:27 | Outpatient (CLI) | payer OTHER, SELFPAY ==
--- NOTE | 2023-06-24 08:11 | PC.NURSE ---
Pre and Post Spirometry completed with 6 Minute Walk Test without incident. Albuterol 0.083% given via HHN, per protocol, Pt tolerated tx well.
== END ==
PROVIDERS: PCP Nurse Practitioner Family; Visit Provider Nurse Practitioner Family
DX: R06.02 Shortness of breath (principal); R06.09 Other forms of dyspnea
CPT/HCPCS: 94060; 94618

== ENCOUNTER → 2023-07-02 10:44 | Outpatient (CLI) | payer OTHER, SELFPAY ==
--- NOTE | 2023-07-02 11:02 | CT_ITS ---
FINAL REPORT TECHNIQUE: Axial images were obtained through the chest without contrast. CLINICAL HISTORY: SOB FINDINGS: There is no mediastinal mass or adenopathy. There is a small 5 mm density along the minor fissure seen on image 42 of series 2 and image 16 of series 601. This is probably related to localized scarring. The heart size is normal. There is no pericardial or pleural effusion. Limited images of the upper abdomen are unremarkable. No suspicious infiltrate or nodule identified. IMPRESSION: No acute process. Reviewed, Interpreted and Dictated by Robi Kamara MD Transcribed by Eliane Nixon Authenticated and [facility]
== END ==
PROVIDERS: PCP Physician Assistant; Visit Provider Nurse Practitioner Family
DX: R06.02 Shortness of breath (principal); F17.210 Nicotine dependence, cigarettes, uncomplicated; Z12.2 Encounter for screening for malignant neoplasm of respiratory organs
CPT/HCPCS: 71250

== ENCOUNTER 2023-11-08 08:42 | Outpatient (CLI) | payer OTHER, SELFPAY ==
--- NOTE | 2023-11-08 08:48 | XR_ITS ---
FINAL REPORT CLINICAL HISTORY: left hip pain COMPARISON: None FINDINGS: AP and frog leg views of the left hip were obtained. There is no prior exam for comparison. There is no acute fracture or dislocation. Mild degenerative change is present. There is a well-corticated calcific density adjacent to the lesser trochanter, that may represent chronic iliopsoas tendinitis. Soft tissues are otherwise within normal limits. IMPRESSION: No acute osseous abnormality of the left hip. Mild degenerative change, with a well-corticated calcific density adjacent to the lesser trochanter that may represent chronic iliopsoas tendinitis. Reviewed, Interpreted and Dictated by Reno Cisneros MD Transcribed by Meeta Vogel Authenticated and . [facility]
== END 2023-11-08 23:59 ==
PROVIDERS: PCP Physician Assistant; Visit Provider Physician Assistant
DX: M25.552 Pain in left hip (principal)
CPT/HCPCS: 73502

== ENCOUNTER 2023-12-01 16:49 | Outpatient (CLI) | payer OTHER, SELFPAY ==
--- NOTE | 2023-12-01 16:49 | MR_ITS ---
FINAL REPORT CLINICAL HISTORY: BUE radiculopathy, canal stenosis. neck pain FINDINGS: Multi planar MR imaging was obtained of the cervical spine. There is abnormal decreased signal throughout the cervical discs. The vertebrae are of normal height. There is no malalignment. The cervical cord demonstrates normal signal and configuration. C2-C3: There is no evidence of significant disc bulge or protrusion. There is no significant facet hypertrophy. C3-C4: There is no evidence of significant disc bulge or protrusion. There is no significant facet hypertrophy. C4-C5: There is mild diffuse disc bulge and a right posterior lateral disc protrusion. There is moderate to high-grade right and mild left neuroforaminal narrowing. C5-C6: There is a mild diffuse disc bulge and endplate hypertrophy. There is mild left neuroforaminal narrowing. C6-C7: There is a mild diffuse disc bulge and endplate hypertrophy, particularly eccentric to the left. There is high-grade left neuroforaminal narrowing. C7-T1: There is no evidence of significant disc bulge or protrusion. There is no significant facet hypertrophy. IMPRESSION: Multilevel changes of degenerative disc disease with neuroforaminal compromise most evident on the right at C4-5 and on the left at C6-7. Reviewed, Interpreted and Dictated by Robi Kamara MD Transcribed by Eliane Nixon Authenticated and [facility]
== END 2023-12-01 23:59 ==
LOC: RAD 16:49
PROVIDERS: PCP Physician Assistant; Visit Provider Physician Assistant
DX: M54.12 Radiculopathy, cervical region (principal)
CPT/HCPCS: 72141; 76376

== ENCOUNTER 2023-12-06 12:49 | Outpatient (CLI) | payer OTHER, SELFPAY ==
--- NOTE | 2023-12-06 12:49 | MR_ITS ---
FINAL REPORT CLINICAL HISTORY: Left hip pain COMPARISON: None FINDINGS: Multiplanar and multisequence imaging of the left hip were obtained without contrast. Bone marrow signal intensity is preserved. There is no acute fracture, contusion or pathologic marrow replacement. The joint spaces preserved. There is no evidence of AVN. The labrum is intact. No convincing labral tear is identified. There is abnormal signal intensity within the gluteus medius tendon at the insertion on the greater trochanter. There is a small amount of overlying fluid. No evidence of tear. Signal intensity within the remainder of the muscular structures is within normal limits. Remaining soft tissues are unremarkable. IMPRESSION: Gluteus medius strain with small amount of fluid in the intertrochanteric bursa. Reviewed, Interpreted and Dictated by Maria Elena Queen MD Transcribed by Purvi Hicks Authenticated and [facility]
== END 2023-12-06 23:59 ==
LOC: RAD 12:49
PROVIDERS: PCP Physician Assistant; Visit Provider Physician Assistant
DX: M25.552 Pain in left hip (principal)
CPT/HCPCS: 73721

== ENCOUNTER 2024-02-28 13:30 | Outpatient (CLI) | payer OTHER, SELFPAY ==
[2024-02-28 20:39] LABS: Basophils % 0.4 % (0.1-2.0); Eosinophils # 0.1 K/mm3 (0.0-0.4); Eosinophils % 1.3 % (0.1-12.0); Hematocrit 46.6 % (42.0-52.0); Lymphocytes # 1.7 K/mm3 (0.7-4.5); Lymphocytes % 16.5 % (10-50); Mean Corpuscular HGB Conc 32.1 g/dL (31.8-35.4); Mean Corpuscular Hemoglobin 29.6 pg (27.0-31.2); Mean Corpuscular Volume 92.3 fl (80-94); Mean Platelet Volume 9.7 fl (7.4-10.4); Monocytes # 0.5 K/mm3 (0.1-1.0); Monocytes % 5.2 % (1.7-9.3); Neutrophils % 76.6 % (37.0-80.0); Platelet Count 243 K/mm3 (142-424); Red Blood Count 5.05 M/mm3 (4.60-6.20); Red Cell Distribution Width 13.8 % (11.5-17.5); White Blood Count 10.4 K/mm3 (4.8-10.8)
[2024-02-28 21:14] LABS: Alanine Aminotransferase 35 U/L (12-78); Albumin Level 5.1 g/dl (3.5-5.0); Albumin/Globulin Ratio 1.9 (1.1-1.8); Alkaline Phosphatase 85 U/L (38-126); Anion Gap 17.4 mEq/L (5-15); Aspartate Amino Transferase 52 U/L (17-59); Bilirubin,Total 0.9 mg/dl (0.2-1.3); Blood Urea Nitrogen 16 mg/dl (9-20); Calcium 10.5 mg/dl (8.4-10.2); Carbon Dioxide 28 mmol/L (22.0-30.0); Chloride 102 mmol/L (98-107); Chol/HDL Ratio 4.6 (1-3.5); Cholesterol 263 mg/dl (140-200); Estimated Glomerular Filt Rate 80 ml/min (>60); GFR (African American) 97 ML/MIN (>60); Globulin 2.7 g/dL (1.3-3.2); Glucose 98 mg/dl (74-100); HDL Cholesterol 57 mg/dl (40-60); Potassium 4.4 mmoL/L (3.5-5.1); Sodium 143 mmol/L (136-145); Total Protein,Serum 7.8 g/dl (6.3-8.2); Triglycerides 164 mg/dl (30-150); VLDL Cholesterol 33 mg/dL (0-40)
[2024-02-28 21:24] LABS: Direct LDL Cholesterol 155.58 mg/dL (100-129)
[2024-02-28 21:29] LABS: Troponin I < 0.01 ng/ml (0.00-0.034)
[2024-02-28 21:30] LABS: 25-OH Vitamin D, Total 47.5 ng/mL (30-100)
[2024-02-28 21:47] LABS: Thyroid Stimulating Hormone 0.92 uIU/mL (0.465-4.68)
[2024-02-28 22:24] LABS: Folate 9.28 ng/mL; Vitamin B12 396 pg/mL (239-931)
== END 2024-02-28 23:59 | disposition home or self-care (01) ==
LOC: LAB.DROPOF 02-29 13:30
PROVIDERS: Visit Provider Family Medicine
DX: I10 Essential (primary) hypertension; N39.0 Urinary tract infection, site not specified; N23 Unspecified renal colic; I72.8 Aneurysm of other specified arteries; R20.0 Anesthesia of skin; R20.2 Paresthesia of skin; R51.9 Headache, unspecified
CPT/HCPCS: 80053; 80061; 82306; 82607; 82746; 84443; 84484; 85025; 87086

== ENCOUNTER 2024-03-13 10:32 | Outpatient (CLI) | payer OTHER, SELFPAY ==
--- NOTE | 2024-03-13 10:32 | US_ITS ---
FINAL REPORT CLINICAL HISTORY: RENAL COLIC COMPARISON: None FINDINGS: RENAL ULTRASOUND: The right kidney measures 10.4 cm in sagittal length without evidence of hydronephrosis. There are small echogenic foci noted in the right kidney. The left kidney measures 10.1 cm in sagittal length without evidence of hydronephrosis. There are small echogenic foci noted in the left kidney as well. The spleen measures 12.7 cm in craniocaudal length, consistent with borderline splenomegaly. IMPRESSION: Bilateral echogenic foci in the kidneys without evidence of hydronephrosis. These may represent small nonobstructing renal stones. Borderline splenomegaly. Reviewed, Interpreted and Dictated by Trav Andrew III, MD Transcribed by Meeta Vogel Authenticated and [facility]
== END 2024-03-13 23:59 | disposition home or self-care (01) ==
LOC: RAD 10:32
PROVIDERS: PCP Physician Assistant; Visit Provider Family Medicine
DX: N23 Unspecified renal colic (principal)
CPT/HCPCS: 76770

== ENCOUNTER 2024-05-30 14:38 | Outpatient (CLI) | payer OTHER, SELFPAY ==
[2024-05-31 13:32] LABS: HIV (1&2) Antibody Rapid NONREACTIVE (NONREACTIVE)
[2024-06-01 09:13] LABS: HBsAg Screen Negative (Negative); HCV Ab Non Reactive (Non Reactive); Hep A Ab, IGM Negative (Negative); Hep B Core Ab, IgM Negative (Negative)
== END 2024-05-30 23:59 | disposition home or self-care (01) ==
LOC: LAB.DROPOF 14:39
PROVIDERS: PCP Physician Assistant; Visit Provider Physician Assistant
DX: Z20.5 Contact with and (suspected) exposure to viral hepatitis (principal); Z20.6 Contact with and (suspected) exposure to human immunodeficiency virus [HIV]
CPT/HCPCS: 80074

== ENCOUNTER 2024-06-08 12:25 | Emergency (ER) | payer OTHER, SELFPAY ==
[2024-06-08 13:05] VITALS: BP 130/79; PULSE 63; RESP 18; TEMP 36.6; O2SAT 100; BMI 21.1
--- NOTE | 2024-06-08 13:39 | HMH.EDGENADL ---
Discharge Plan Disposition Patient Disposition: Home, Self-Care Prescriptions Prescriptions: No Action No Known Home Medications Referrals Follow up/Referrals: Jess Dangelo PA [Primary Care Provider] - See instructions Activity Restrictions/Add. Instructions Additional Instructions/Restrictions: Use the erythromycin ointment on your right eye 3 times a day. This should get better over the next few days. If you develop any new or worsening symptoms, or if you become concerned for your health for any reason, return to the emergency department for evaluation Clinical Impressions Clinical Impression: Abrasion, corneal Instructions Patient Instructions: DI for Eye Pain Print Language Print Language: Swedish Discharge ED Provider: Norris Marsh General Adult HPI General Chief complaint: Eye Problems Stated complaint: AO 06/08 Peice of wood in R Eye Time Seen by Provider: 06/08/24 13:13 Mode of Arrival: Ambulatory Source of Information: Patient Limitations: No Limitations Description of Symptoms (Recalled from ER Triage Doc. by RN): pt states he was sawing wood approx 1.5-2 hours ago when a piece of wood got in his eye. History of Present Illness HPI narrative: This is a 48-year-old male with a past medical history of brain aneurysm who presents to the emergency department due to foreign body sensation in his right eye. Patient states that he was cutting nicci in his home today when a piece of the wood flew into his right eye. This happened 2 hours prior to arrival. He reports increased drainage from the right eye but states that his vision is still intact. He has been unable to get anything out of the eye other than watery discharge. He denies any vision loss. Related Data Home Medications ?Medication ?Instructions ?Recorded ?Confirmed No Known Home Medications 05/30/24 05/30/24 Allergies Allergy/AdvReac Type Severity Reaction Status Date / Time Penicillins Allergy Unknown Verified 05/30/24 09:36 [facility] Disclaimer: The information contained in this section may have been updated after the patient was seen, as this information can be updated by other users. Medical History Anxiety Carotid artery stenosis Chest pain Dizziness Dyspnea Head ache Hyperlipidemia Left epididymitis Syncope Tremor Weakness Surgical History H/O epididymectomy Family History Other Family history of cancer Family history of hypertension Social History Smoking Status: Current every day smoker tobacco type: cigarettes packs per day: 1 second hand exposure: Yes alcohol intake: never substance use type: marijuana current occupational status: employed Travel in the last 8 weeks: None household members: spouse housing: apartment current occupational exposures/hazards: No caffeine: Yes ROS Obtained: Yes All systems reviewed & no additional complaints except as documented Physical Exam General General appearance: alert and in no apparent distress Head Head exam: atraumatic Expanded Eye Exam Eyelids: right: normal inspection Pupils: Right: regular, round and reactive Sclera/Conjunctival: right: injection Comment: PERRLA, extraocular movements intact, injected conjunctive up to the right conjunctiva. Fluorescein staining and tetracaine drops revealed no Mariela sign. No apparent corneal abrasion or laceration ENT ENT exam: Present normal external ear exam Neck Neck exam: Present full ROM Chest Chest inspection: Present symmetric chest wall rise Respiratory Respiratory exam: Present normal lung sounds bilaterally; Absent respiratory distress Cardiovascular Cardiovascular exam: Present regular rate and normal rhythm Abdominal Exam Abdominal exam: Present soft; Absent tenderness or guarding exam: Present deferred Extremities Exam Extremities exam: Present normal inspection Back Exam Back exam: Present normal inspection Neurological Exam Neurological exam: Present alert and oriented X3 Psychiatric Psychiatric exam: Present normal affect Skin Skin exam: Present warm and dry Medical Decision Making Medical Records Medical records reviewed: Yes I reviewed the patient's medical records. Red Inquiry Pt receiving controlled substance: No Vital Signs: 06/08/24 13:05 06/08/24 14:16 Temperature 97.9 F 97.9 F Temperature Source Oral Oral Pulse Rate 63 Pulse Rate [Left Radial] 63 Respiratory Rate 18 18 Blood Pressure 130/79 Blood Pressure [Left Arm] 130/79 Blood Pressure Mean [Left Arm] 96 Blood Pressure Source Automatic Cuff Blood Pressure Source [Left Arm] Automatic Cuff Blood Pressure Position Sitting Blood Pressure Position [Left Arm] Sitting 02 Sat by Pulse Oximetry 100 Oxygen Delivery Method Room Air Room Air Orders (Tests/Meds): ED MEDICATIONS Discontinued Medications Generic Name Dose Route Start Last Admin Trade Name Freq PRN Reason Stop Dose Admin Fluorescein Sodium 1 mg 06/08/24 13:40 06/08/24 13:53 Fluorescein Sodium 1mg Strip OP 06/08/24 13:41 1 mg ONCE ONE Administration Oxycodone HCl 5 mg 06/08/24 13:25 06/08/24 13:37 Oxycodone 5mg Immediate Release Tablet PO 06/08/24 13:26 Not Given ONCE ONE Tetracaine HCl 0 ml 06/08/24 13:40 06/08/24 13:53 Tetracaine 0.5% Opth Sirena 15ml OP 06/08/24 13:41 15 ml ONCE ONE Administration Medical Decision Narrative: This is a 48-year-old male presents to the emergency department for complaints of foreign body sensation in his right eye. Patient was cutting hardwood nicci today when he felt like a piece of the nicci got lodged in his eye. This happened 2 hours ago and he has been unable to get this feeling to stop. He states that his vision is intact. Exam revealed an injected conjunctive a but PERRLA and extraocular movements were intact. Eyelids were retracted and revealed no foreign bodies. Patient had significant relief with the tetracaine drops. Fluorescein staining did not reveal any corneal defects, abrasions or ulcerations. Negative Mariela sign. Differential diagnosis includes: Corneal abrasion, ocular foreign body, corneal ulceration, corneal laceration, traumatic iritis, among others. Given the patient's complaints and physical exam and vital signs, no additional imaging studies or labs are indicated at this time. His presentation is most consistent with a corneal abrasion. He is being supplied erythromycin ointment and was instructed that his symptoms should improve over the next few days. Return precautions were given. All questions were answered. He demonstrated understanding and was in agreement with this plan. He was then discharged from the emergency department in stable condition. Critical Care Critical Care Time Critical Care Time: No
[2024-06-08] MEDS: TETRACAINE 0.5% OPTH SOL 15ML OP (13:53)
[2024-06-08] MEDS: FLUORESCEIN SODIUM 1MG STRIP 1 MG OP (13:53)
[2024-06-08 14:16] VITALS: BP 130/79; PULSE 63; RESP 18; TEMP 36.6; O2SAT 100
== END 2024-06-08 14:17 | disposition home or self-care (01) ==
PROVIDERS: Emergency Provider Student in an Organized Health Care Education/Training Program; PCP Physician Assistant
DX: S05.01XA Injury of conjunctiva and corneal abrasion without foreign body, right eye, initial encounter (principal); I65.29 Occlusion and stenosis of unspecified carotid artery; E78.5 Hyperlipidemia, unspecified; F17.210 Nicotine dependence, cigarettes, uncomplicated; W22.8XXA Striking against or struck by other objects, initial encounter; Y92.009 Unspecified place in unspecified non-institutional (private) residence as the place of occurrence of the external cause
CPT/HCPCS: 99283

== ENCOUNTER 2024-11-02 10:13 | Outpatient (CLI) | payer OTHER, SELFPAY ==
[2024-11-02 18:33] LABS: Basophils % 0.4 % (0.1-2.0); Eosinophils # 0.1 K/mm3 (0.0-0.4); Eosinophils % 1.6 % (0.1-12.0); Hematocrit 48.1 % (42.0-52.0); Hemoglobin 15.4 g/dL (14.1-18.0); Lymphocytes # 1.5 K/mm3 (0.7-4.5); Lymphocytes % 19.6 % (10-50); Mean Corpuscular Hemoglobin 28.9 pg (27.0-31.2); Mean Corpuscular Volume 90.4 fl (80-94); Mean Platelet Volume 10.9 fl (7.4-10.4); Monocytes # 0.5 K/mm3 (0.1-1.0); Monocytes % 7.2 % (1.7-9.3); Neutrophils # 5.4 K/mm3 (1.8-7.8); Neutrophils % 70.9 % (37.0-80.0); Platelet Count 252 K/mm3 (142-424); Red Blood Count 5.32 M/mm3 (4.60-6.20); Red Cell Distribution Width 13.2 % (11.5-17.5); White Blood Count 7.6 K/mm3 (4.8-10.8)
[2024-11-02 19:25] LABS: Alanine Aminotransferase 25 U/L (12-78); Albumin Level 4.7 g/dl (3.5-5.0); Alkaline Phosphatase 83 U/L (38-126); Anion Gap 13.4 mEq/L (5-15); Aspartate Amino Transferase 36 U/L (17-59); Bilirubin,Total 0.7 mg/dl (0.2-1.3); Blood Urea Nitrogen 15 mg/dl (9-20); Calcium 10.1 mg/dl (8.4-10.2); Carbon Dioxide 29 mmol/L (22.0-30.0); Chloride 102 mmol/L (98-107); Chol/HDL Ratio 5.1 (1-3.5); Cholesterol 200 mg/dl (140-200); Estimated Glomerular Filt Rate 80 ml/min (>60); GFR (African American) 97 ML/MIN (>60); Globulin 2.4 g/dL (1.3-3.2); Glucose 131 mg/dl (74-100); HDL Cholesterol 39 mg/dl (40-60); Potassium 4.4 mmoL/L (3.5-5.1); Sodium 140 mmol/L (136-145); Total Protein,Serum 7.1 g/dl (6.3-8.2); Triglycerides 109 mg/dl (30-150); VLDL Cholesterol 22 mg/dL (0-40)
[2024-11-02 19:36] LABS: Direct LDL Cholesterol 138.47 mg/dL (100-129)
[2024-11-02 19:41] LABS: 25-OH Vitamin D, Total 37.9 ng/mL (30-100)
[2024-11-02 19:56] LABS: Prostate Specific Ag Screen 0.5 ng/ml (0.0-4.0); Thyroid Stimulating Hormone 0.83 uIU/mL (0.465-4.68)
[2024-11-02 20:15] LABS: Vitamin B12 453 pg/mL (239-931)
== END 2024-11-02 23:59 | disposition home or self-care (01) ==
LOC: LAB.DROPOF 11-03 09:56
PROVIDERS: PCP Family Medicine; Visit Provider Family Medicine
DX: I10 Essential (primary) hypertension (principal); R07.89 Other chest pain; Z12.5 Encounter for screening for malignant neoplasm of prostate; R53.83 Other fatigue; E78.5 Hyperlipidemia, unspecified; R42 Dizziness and giddiness; R00.2 Palpitations; I20.89 Other forms of angina pectoris; R06.09 Other forms of dyspnea; I83.90 Asymptomatic varicose veins of unspecified lower extremity; K21.9 Gastro-esophageal reflux disease without esophagitis; R94.31 Abnormal electrocardiogram [ECG] [EKG]; Z82.49 Family history of ischemic heart disease and other diseases of the circulatory system; Z79.899 Other long term (current) drug therapy
CPT/HCPCS: 80053; 80061; 82306; 82607; 84443; 85025; G0103

== ENCOUNTER 2024-11-14 12:41 | Outpatient (CLI) | payer OTHER, SELFPAY ==
--- NOTE | 2024-11-14 | CA_ITS ---
APPROVED REPORT Exam: Pharmacologic Technologist: Flora Hansen Ht: 6 ft 0 in Wt: 165 lbs BSA: 1.96 m2 HR: 64 bpm BP: 139/76 mmHg Stress Test Details Test: Lexiscan HR Resting HR: 64 bpm Max Heart Rate (APMHR): 172.340153 bpm Max HR Achieved: 101 bpm Target HR (85% APMHR): 146.823438 bpm % of APMHR: 58.72 Recovery HR: 73 bpm BP Resting BP: 139.0/76.0 mmHg Max BP: 139.0/91.0 mmHg Recovery BP: 139.0/81.0 mmHg ECG Stress ECG Conclusion Symptoms: Dyspnea, chest pressure Arrhythmias/Ectopy: - ST-T Changes: Less than [address] depression Conclusion: EKG unremarkable due to Lexiscan infusion. Electronically signed by : Brianda Rosario MD 11/15/2024 11:11:11
--- NOTE | 2024-11-14 12:42 | NM_ITS ---
APPROVED REPORT Exam: Nuclear Stress Test Indication: chest pain..soa Patient Location: Outpatient Stress Tech: Flora Hansen [place] Tech:Kimberlee Farley, TIESHAT, RT (R)(N) Ht: 6 ft 1 in Wt: 170 lbs HR: 64 bpm BP: 139/76 mmHg BSA: 2.01 m2 TID: 1.07 BMI: 22.4 History: chest pain..soa Procedure: Patient received 0.4 mg of intravenous Lexiscan, resting heart rate 64 bpm, resting blood pressure 139/76 mmHg, with Lexiscan maximum heart rate achieved was 101 bpm which is 85 % of the maximum predicted heart rate and blood pressure was 139/82 mmHg. With Lexiscan, patient denied any complaint of chest pain. Cardiac Stress and Resting SPECT Images: Cardiac Stress and Resting SPECT images were obtained using technetium 99m Myoview 32.3 mCi stress and 10.73 mCi at rest. Resting and stress imaging in supine and prone positions demonstrate a large sized, moderate, partially reversible perfusion defect in the basal to mid inferior LV wall. Gated imaging demonstrates mild reduction global LV systolic function. There is moderate hypokinesis of the basal inferior LV wall. LVEF is calculated at 41%. Conclusion: Large sized, moderate, partially reversible perfusion defect in the basal to mid inferior LV wall. Findings are suggestive of partial reversible ischemia. Gated imaging demonstrates mild reduction global LV systolic function. There is moderate hypokinesis of the basal inferior LV wall. LVEF is calculated at 41%. Electronically signed by : Brianda Rosario MD 11/15/2024 11:10:03
--- NOTE | 2024-11-14 12:42 | CA_ITS ---
APPROVED REPORT EXAM: Comprehensive 2D, Doppler, and color-flow Echocardiogram Pharmacy Assistant: Destiny Guzman RT(R) Ht: 6 ft 0 in Wt: 165lbs BSA: 1.96 BP: 138/88 mmHg Indications: angina, CP, smoker, fatigue, syncope, HTN, ALEXIS, hyperlipidemia 2D Dimensions LVEF (Blas's) 54.60 % M: 52 - 72 LV Volume 141.10 mL M: 62 - 150 LV Volume Index 72.0 mL/m2 M: 34 - 74 LA Volume 29.60 mL LA Volume Index 15.10 mL/m2 (M/F) 16-34 EF AP4 53.10 % EF AP2 59.9 % EF BP 54.6 % GL Strain -19.4 % M-Mode Dimensions RVDd 2.95 cm (0.9-2.6) LA Diam 3.33 cm (1.9-4.0) LVDd 4.32 cm (3.5-5.7) LVDs 3.35 cm (3.5-5.7) IVSd 0.84 cm (0.6-1.1) PWd 0.77 cm (0.6-1.1) EF (Teich) 45.50% FS 22.50% EDV (Teich) 84.00 mL TAPSE 1.83 (<1.7) ESV (Teich) 45.80 mL LV Diastology E Decel Time 150 (160-240 msec) E/A Ratio 1.8 Mitral Valve MV E Max Brock. 80.0 (40-130 cm/s) MV A Velocity 45.0 (40-130 cm/s) E/A Ratio 1.76 MV PHT 44.0 ms Tricuspid Valve TR P. Velocity 223.00 cm/s RAP Estimate 10.00 mmHg RVSP 29.90 mmHg Left Ventricle The left ventricle is normal size. The left ventricular systolic function is normal. The left ventricular ejection fraction is within the normal range. There is normal left ventricular wall thickness. There is normal LV segmental wall motion. The left ventricular diastolic function is normal. LVEF is 55%. Right Ventricle The right ventricle is normal size. The right ventricular systolic function is normal. Atria The left atrium size is normal. The right atrium size is normal. There is no Doppler evidence of interatrial shunt. Aortic Valve The aortic valve opens well. There is no aortic valvular stenosis. No aortic regurgitation is present. Mitral Valve The mitral valve is normal in structure. No evidence of mitral valve stenosis. Mild mitral regurgitation. Tricuspid Valve The tricuspid valve leaflets are thin and pliable. Mild tricuspid regurgitation. RVSP is 20-25 mmHg. Pulmonic Valve The pulmonary valve is normal in structure. Trace pulmonic regurgitation. Great Vessels The aortic root is normal in size. The ascending aorta is normal in size. IVC is normal in size and collapses >50% with inspiration. Pericardium There is no pericardial effusion. Other Information Study Quality: Adequate Conclusion Normal biventricular systolic function. Mild MR, mild TR. Electronically signed by : Brianda Rosario MD 11/20/2024 00:38:53
[2024-11-14] MEDS: ISOTOPE MYOVIEW (PER STUDY) 1 DOSE IV (15:18)
[2024-11-14] MEDS: REGADENOSON 0.4MG/5ML SYRINGE 0.4 MG IV (15:18)
[2024-11-14] MEDS: SODIUM CHLORIDE 0.9% 10ML SYR (RAD ONLY) 10 ML IV ×2 (15:18)
== END 2024-11-14 23:59 | disposition home or self-care (01) ==
LOC: RAD 12:42
PROVIDERS: PCP Family Medicine; Visit Provider Family Medicine
DX: I20.89 Other forms of angina pectoris (principal); R06.09 Other forms of dyspnea; R00.2 Palpitations
CPT/HCPCS: 78452; 93017; 93018; 93306; A9502; J2785

== ENCOUNTER 2024-11-16 07:58 | Outpatient (CLI) | payer OTHER, SELFPAY | END 2024-11-16 23:59 | disposition home or self-care (01) | LOC: RT 07:59 | PROVIDERS: PCP Family Medicine; Visit Provider Family Medicine | DX: R00.2 Palpitations (principal) | CPT/HCPCS: 93270 ==

== ENCOUNTER 2024-12-08 07:20 | Outpatient (CLI) | payer OTHER, SELFPAY ==
--- NOTE | 2024-12-08 07:20 | CT_ITS ---
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 A noncontrast coronary calcium scan was performed. A CT attenuation threshold of 130 Hounsfield units (HU) was used for the detection of calcium in contiguous voxels of 1 sq mm in area to be counted as individual lesions. Bolus tracking in the ascending aorta with a threshold of 180 HU was performed. Immediately afterwards, ECG synchronized cardiac CT was then performed from the cardiac base to apex using retrospective gating with ECG tube current modulation. A total of 85 mL of Isovue 370 mg/mL contrast medium was administered at 5 mL/sec followed by a saline flush using a biphasic injection protocol. A tube voltage of 120 KVp was used. The patient received the following medications prior to the cardiac CT. 0.8 mg of sublingual nitroglycerin The average heart rate at the time of acquisition was 53 bpm and regular. Image Reconstruction Transaxial images were reconstructed at 0.67 mm slide thickness. Data was reviewed interactively on an advanced workstation capable of 2 and 3-dimensional displays in all conventional reconstruction formats, including multiplanar reformations, maximum intensity projections, curved multiplanar reformations, and volume rendered reconstructions. When applicable, selected routine images describing the relevant coronary anatomy and pathology were saved and sent to PACS. Complications None Technical Quality Overall image quality was good. Coronary artery opacification was adequate. Total DLP (Dose-Length Product) is 2164 mGy-cm. The reported value represents the total of one or more individual components during the CT acquisition of this date and at this time, and as such, the same value may appear in more than one CT report depending on the interpreting/reporting physicians. COMPARISON None FINDINGS CT Coronary Calcium Scoring LMA (Left Main Artery) = 0 LAD (Left Anterior Descending) = 0 LCX (Left Coronary Circumflex) = 0 RCA (Right Coronary Artery) = 0 Total Calcium Score = 0 using the AJ-130 method. The interpretation of the calcium heart score is based on the following continuum*: 0 = no calcified plaque detected (risk of coronary artery disease is very low ??? less than 5%) 1-10 = calcium detected in extremely minimal levels (risk of coronary diseases is still low ??? less than 10%) 11-100 = mild levels of plaque detected with certainty (mild or minimal narrowing of heart arteries is likely) 101-400 = definite,at least moderate levels of plaque detected (relatively high risk of a heart attack within 3-5 years) >401-999 = extensive levels of plaque detected (high risk of heart attack, high levels of vascular disease are present, high likelihood of at least one significant coronary narrowing) *The calcium heart score quantifies the burden of coronary calcification/plaque in the coronary arteries. The calcium heart score is not able to evaluate the presence or burden of non-calcified (i.e. soft) plaque. There is no identifiable calcification in the aortic valve, mitral annulus or mitral valve, pericardium, or myocardium. Coronary CT Angiography The coronary arterial system is right dominant. Quantitative Stenosis Grading: Left Main (LM): The left main originates normally from the left sinus of Valsalva. The LM bifurcates into the left anterior descending artery and left circumflex artery. The LM is patent with no evidence of atherosclerosis. Left Anterior Descending (LAD) and Diagonal Branches: The LAD gives off 2 diagonal branch(es). The LAD and its branches are patent with no evidence of atherosclerosis. There is no evidence of LAD-myocardial bridge. Left Circumflex (LCX) and Obtuse Marginals (OM): The LCX gives off 1 Obtuse Marginal (OM) branch(es). The LCX and its branches are patent with no evidence of atherosclerosis. Right Coronary Artery (RCA): The RCA originates normally from the right sinus of Valsalva. The RCA gives off a posterior descending artery (PDA) and posterolateral (PL) branches. The RCA and its branches are patent with no evidence of atherosclerosis. Non-Coronary Cardiac Findings: Analysis of the left ventricular (LV) structure and function was performed after 3-D reconstruction of the LV from axial images, with user-corrected automatic contouring for assessment of LV volumes and user-defined reconstruction from oblique planes for measurement of 3-D cardiac structure and function. -The left ventricle systolic function is normal. -There is no left atrial appendage filling defect. Two right pulmonary veins and two left pulmonary veins drain normally into the left atrium. -No pericardial thickening or calcification. -Central and branch pulmonary arteries in the [id number] are unremarkable. -Thoracic aorta within the visualized thoracic aortic-branches in the [id number] is unremarkable. Extracardiac Structures No significant extra-cardiac findings. Note, however, that this study is focused on the cardiac findings. IMPRESSION -Absence of coronary calcification with an Agatston score = 0 using the AJ-130 method. -No evidence of significant flow-limiting atherosclerosis of the coronary arteries. -CAD-RADS 0. Management recommendations per ACC/AHA guidelines*, as clinically appropriate. *Recommendations: CAD RADS 0: Reassurance. Consider non-atherosclerotic causes of chest pain. CAD RADS 1: Consider non-atherosclerotic causes of chest pain. Consider preventive therapy and risk factor modification. CAD RADS 2: Consider non-atherosclerotic causes of chest pain. Consider preventive therapy and risk factor modification, particularly for patients with nonobstructive plaque in multiple segments. CAD RADS 3: Consider further functional testing. Consider symptom-guided anti-ischemic and preventive pharmacotherapy as well as risk factor modification per published guideline statements. CAD RADS 4A: Consider further functional testing or invasive coronary angiography with revascularization per published guideline statements. Consider symptom-guided anti-ischemic and preventive pharmacotherapy as well as risk factor modification per published guideline statements. CAD RADS 4B: Invasive coronary angiography recommended with revascularization per published guideline statements. Consider symptom-guided anti-ischemic and preventive pharmacotherapy as well as risk factor modification per published guideline statements. CAD RADS 5: Consider invasive angiography and/or viability assessment with revascularization per published guideline statements. Consider symptom-guided anti-ischemic and preventive pharmacotherapy as well as risk factor modification per published guideline statements. CRITICAL RESULT None COMMUNICATION Per this written report The coronary and cardiac findings of this CCTA were reviewed, reported, and signed by Mark Rosario MD (Payroll Master) Conclusion Electronically signed by : Brianda Rosario MD 12/12/2024 12:30:53
[2024-12-08 07:33] VITALS: BMI 21.7
[2024-12-08 07:46] VITALS: BP 112/73; PULSE 58; RESP 16; O2SAT 99
[2024-12-08 07:54] LABS: Blood Urea Nitrogen 17 mg/dl (9-20); Calcium 9.5 mg/dl (8.4-10.2); Chloride 108 mmol/L (98-107); Potassium 4.1 mmoL/L (3.5-5.1)
[2024-12-08 08:02] LABS: Anion Gap 8.1 mEq/L (5-15); Carbon Dioxide 28 mmol/L (22.0-30.0); Creatinine Clearance Estimated 95 mL/min (50-200); Estimated Glomerular Filt Rate 79 ml/min (>60); GFR (African American) 96 ML/MIN (>60); Glucose 94 mg/dl (74-100); Sodium 140 mmol/L (136-145)
[2024-12-08 08:32] VITALS: BP 151/91; PULSE 54; RESP 16; O2SAT 100
[2024-12-08] MEDS: NITROGLYCERIN 0.4MG SL TABLET SL (08:32)
[2024-12-08 08:35] VITALS: BP 113/67; PULSE 50; RESP 16; O2SAT 100
[2024-12-08 08:38] VITALS: BP 100/60; PULSE 60; RESP 16; O2SAT 100
[2024-12-08 08:42] VITALS: BP 116/68; PULSE 61; RESP 16; O2SAT 98
[2024-12-08] MEDS: 0.9 % SODIUM CHLORIDE 50 ML VIAL IV (08:42)
[2024-12-08] MEDS: SODIUM CHLORIDE 0.9% 10ML SYR (RAD ONLY) 10 ML IV (08:42)
[2024-12-08] MEDS: IOPAMIDOL-370 (76%);100ML BOTTLE 85 ML IV (08:43)
== END 2024-12-08 08:50 | disposition home or self-care (01) ==
PROVIDERS: PCP Family Medicine; Visit Provider Nurse Practitioner Family
DX: I20.89 Other forms of angina pectoris (principal); R94.39 Abnormal result of other cardiovascular function study; R06.09 Other forms of dyspnea
CPT/HCPCS: 75574; 80048; Q9967

== ENCOUNTER 2024-12-15 15:33 | Outpatient (CLI) | payer OTHER, SELFPAY ==
--- NOTE | 2024-12-15 15:55 | MR_ITS ---
PROCEDURE INFORMATION: Exam: MR Head Without and With Contrast Exam date and time: 12/15/2024 4:41 PM Age: 49 years old Clinical indication: Pain; Headache; Additional info: F/u aneurysm TECHNIQUE: Imaging protocol: Magnetic resonance imaging of the head without and with contrast. Contrast material: PROHANCE; Contrast volume: 17 ml; Contrast route: IV; COMPARISON: MR ANGIO HEAD WO CON 02/21/2021 7:41 AM FINDINGS: Brain: A few scattered nonspecific T2/FLAIR hyperintensities are noted throughout the white matter, most prominence is seen in the anterior right parietal lobe (series 5, image 21). Cerebral ventricles: Normal. No ventriculomegaly. Bones: Unremarkable. Paranasal sinuses: Normal as visualized. No acute sinusitis. Mastoid air cells: Normal as visualized. No mastoid effusion. Orbital cavities: Unremarkable. Vasculature: Overall suboptimal evaluation, however, best appreciated on the T2 sequence is a small outpouching at the lateral /anterior aspect of the left intracranial carotid artery, proximal cavernous portion. Soft tissues: Unremarkable. IMPRESSION: 1. No acute intracranial findings. 2. Small left intracranial carotid artery, proximal cavernous portion, aneurysm is suboptimally evaluated on this examination. If further evaluation is desired, recommend CTA with contrast
[2024-12-15] MEDS: GADOTERIDOL INJ 20ML SYRINGE 17 ML IV (17:37)
[2024-12-15] MEDS: SODIUM CHLORIDE 0.9% 10ML SYR (RAD ONLY) 10 ML IV (17:37)
== END 2024-12-15 23:59 | disposition home or self-care (01) ==
LOC: RAD 15:34
PROVIDERS: PCP Family Medicine; Visit Provider Family Medicine
DX: I72.0 Aneurysm of carotid artery (principal)
CPT/HCPCS: 70553; A9576

== ENCOUNTER 2025-01-18 07:43 | Outpatient (CLI) | payer OTHER, SELFPAY ==
--- NOTE | 2025-01-18 08:00 | CT_ITS ---
FINAL REPORT CLINICAL HISTORY: carotid artery aneurysm, yearly follow up COMPARISON: None FINDINGS: CT NECK ANGIO, WITHOUT AND WITH CONTRAST TECHNIQUE: Thin section axial CT with contrast with multiplanar 3D MIP reconstruction. This study was performed with techniques to keep radiation doses as low as reasonably achievable, (ALARA). Individualized dose reduction techniques using automated exposure control or adjustment of mA and/or kV according to the patient's size were employed. NASCET criteria and technique was utilized during interpretation. FINDINGS: Aortic arch: Arch shows no significant narrowing. Great vessel origins are widely patent. Right carotid: No significant stenosis is seen of the cervical common or internal carotid artery. Left carotid: No significant stenosis is seen of the cervical common or internal carotid artery. Vertebrals: The vertebral arteries are codominant. No significant stenosis is present. IMPRESSION: No significant stenosis of the cervical carotid arteries. Specifically, there is no evidence of dissection, aneurysm, or appreciable plaque in either carotid artery. This study was performed using automated techniques to achieve radiation exposure as low as reasonably Reviewed, Interpreted and Dictated by Reno Cisneros MD Transcribed by Meeta Vogel Authenticated and [facility]
--- NOTE | 2025-01-18 08:00 | CT_ITS ---
FINAL REPORT CLINICAL HISTORY: carotid artery aneurysm COMPARISON: 02/21/2021 FINDINGS: CTA HEAD TECHNIQUE: Thin section axial CT with contrast with 3D MIP reconstruction This study was performed with techniques to keep radiation doses as low as reasonably achievable, (ALARA). Individualized dose reduction techniques using automated exposure control or adjustment of mA and/or kV according to the patient''s size were employed. There is a small saccular aneurysm arising from the lateral wall of the proximal cavernous left ICA measuring 2 x 3 mm, similar to prior MRA. No other aneurysm is identified. The remaining vessels are widely patent. There is no evidence of stenosis or occlusion. 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 Reviewed, Interpreted and Dictated by Reno Cisneros MD Transcribed by Hailee Peterson Authenticated and [facility]
[2025-01-18] MEDS: SODIUM CHLORIDE 0.9% 10ML SYR (RAD ONLY) 10 ML IV (08:40)
[2025-01-18] MEDS: 0.9 % SODIUM CHLORIDE 50 ML VIAL IV (08:40)
[2025-01-18] MEDS: IOPAMIDOL-370 (76%);100ML BOTTLE 100 ML IV (08:40)
== END 2025-01-18 23:59 | disposition home or self-care (01) ==
LOC: RAD 07:44
PROVIDERS: PCP Family Medicine; Visit Provider Nurse Practitioner Family
DX: I67.1 Cerebral aneurysm, nonruptured (principal); I20.89 Other forms of angina pectoris; R94.39 Abnormal result of other cardiovascular function study
CPT/HCPCS: 70496; 70498; Q9967

== ENCOUNTER 2025-01-22 09:00 | Outpatient (CLI) | payer OTHER, SELFPAY ==
[2025-01-22 18:13] LABS: Basophils % 0.4 % (0.1-2.0); Eosinophils # 0.2 K/mm3 (0.0-0.4); Eosinophils % 3.6 % (0.1-12.0); Hematocrit 45.8 % (42.0-52.0); Hemoglobin 14.8 g/dL (14.1-18.0); Lymphocytes % 21.3 % (10-50); Mean Corpuscular HGB Conc 32.3 g/dL (31.8-35.4); Mean Corpuscular Hemoglobin 28.8 pg (27.0-31.2); Mean Corpuscular Volume 89.1 fl (80-94); Mean Platelet Volume 11.5 fl (7.4-10.4); Monocytes # 0.6 K/mm3 (0.1-1.0); Monocytes % 12.4 % (1.7-9.3); Neutrophils # 2.9 K/mm3 (1.8-7.8); Neutrophils % 61.9 % (37.0-80.0); Nucleated Red Blood Cells # 0 10^3/uL; Nucleated Red Blood Cells % 0 %; Platelet Count 175 K/mm3 (142-424); Red Blood Count 5.14 M/mm3 (4.60-6.20); Red Cell Distribution Width 13.1 % (11.5-17.5); Red Cell Distribution Width-SD 42.9 fL; White Blood Count 4.7 K/mm3 (4.8-10.8)
[2025-01-22 19:53] LABS: Alanine Aminotransferase 29 U/L (12-78); Albumin Level 4.5 g/dl (3.5-5.0); Albumin/Globulin Ratio 1.6 (1.1-1.8); Alkaline Phosphatase 87 U/L (38-126); Anion Gap 16.3 mEq/L (5-15); Aspartate Amino Transferase 37 U/L (17-59); Bilirubin,Total 0.8 mg/dl (0.2-1.3); Blood Urea Nitrogen 12 mg/dl (9-20); Calcium 9.4 mg/dl (8.4-10.2); Carbon Dioxide 25 mmol/L (22.0-30.0); Chloride 104 mmol/L (98-107); Estimated Glomerular Filt Rate 103 ml/min (>60); GFR (African American) 124 ML/MIN (>60); Globulin 2.9 g/dL (1.3-3.2); Glucose 93 mg/dl (74-100); Potassium 4.3 mmoL/L (3.5-5.1); Sodium 141 mmol/L (136-145); Total Protein,Serum 7.4 g/dl (6.3-8.2)
== END 2025-01-22 23:59 | disposition home or self-care (01) ==
LOC: LAB.DROPOF 01-23 14:18
PROVIDERS: PCP Family Medicine; Visit Provider Family Medicine
DX: I10 Essential (primary) hypertension (principal); R51.9 Headache, unspecified
CPT/HCPCS: 80053; 85025

== ENCOUNTER 2025-06-27 10:10 | Outpatient (CLI) | payer OTHER, SELFPAY ==
--- OUTSIDE RECORDS SUMMARY | 2025-06-27 10:15 | XMS_ITS | Clinical Summary ---
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 01/02/2022 Active omeprazole (priLOSEC) 40 MG capsule Take 40 mg by mouth 2 (Two) Times a Day. 12/21/2021 Active busPIRone (BUSPAR) 5 MG tablet Take 5 mg by mouth 2 (Two) Times a Day. 2 po bid PRN 10/16/2021 Active Active Problems No known active problems Resolved Problems Problem Noted Date Diagnosed Date Resolved Date Carotid aneurysm, left 01/07/201702/15 Family History Medical History Relation Name Comments Stroke Brother 1 Sai from heat stroke Thyroid disease Brother 1 Sai Alcohol abuse Brother 2 Jaskaran Alcohol abuse Father Heart attack Father Stroke Father Diabetes Mother Hypertension Mother Melanoma Mother Aneurysm Sister 1 Yvette COPD Sister 1 Yvette Thyroid cancer Sister 1 Yvette Thyroid disease Sister 1 Yvetet Pancreatitis Sister 2 Manan Echeverria chronic and marcela or Relation Name Status Comments Brother 1 Sai Alive Brother 2 Jaskaran Father Mother Sister 1 Yvette Alive Sister 2 Manan Jacki Alive Social History Tobacco Use Types Packs/Day Years Used Date Smoking Tobacco: Every Day Cigarettes 1 32 Smokeless Tobacco: Never Alcohol Use Standard Drinks/Week Comments No 0 (1 standard drink = 0.6 oz pur e alcohol) Abuse Screen Answer Date Recorded Unsafe at Home or Work/School Not on file Feels Threatened by Someone? Not on file 08/2023 Does Anyone Keep You from Co ntacting Others or Doint Things Outside the Home? Not on file 07/21/2023 Physical Sign of Abuse Present Not on file 1 Housing Stability Answer Date Recorded Current Living Arrangements Not on file 07/11 Potentially Unsafe Housing Conditions Not on sheba e 07/21/2023 Family and Community Support Answer Ezequiel e Recorded Help with Day-to-Day Activities Not on file 07/21/2023 Lonely or Isolated Not on file 07/21/2023 Employment Answer Date Recorded Do you want help finding or keeping work or a jesika b? Not on file 07/21/2023 Disabilities Answer Date Recorded Concentrating, Remembering, or Making Decisions Difficulty Not on file 07/21/2023 Doing Errands Independently Difficulty Not on fi le 07/21/2023 Education Answer Date Recorded Help with school or training? 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[employer] Not on file Not on file Not on file Last Filed Vital Signs Vital Sign Reading Time Taken Comments Blood Pressure 128/72 05/21/2022 9:47 AM EDT Pulse 60 05/21/2022 9:47 AM EDT Temperature 36.7 C (98 F) 09/13/2018 11:10 AM EST Respiratory Rate 17 09/13/2018 11:10 AM EST Oxygen Saturation 99% 05/21/2022 9:47 AM EDT Inhaled Oxygen Concentration - - Weight 74.4 kg (164 lb) 05/21/2022 9:47 AM EDT Height 185.4 cm (6' 1 ) 05/21/2022 9:47 AM EDT Body Mass Index 21.64 05/21/2022 9:47 AM EDT Plan of Treatment Health Maintenance Due Date Last Done Comments ANNUAL PHYSICAL 01/07/2017 HEPATITIS C SCREENING 01/07/2017 COLOGUARD 2020 COLON CANCER SCREENING 5 YEA R SIGMOIDOSCOPY 2020 COLONOSCOPY 2020 COL[address]AL CANCER SCREENING 2020 CT COLONOGRAPHY 2020 FECAL OCCULT BLOOD TEST 2020 FIT Testing (1 year) 2020 COVID-19 Vaccine (1 - 2023-2 5 season) 2025 INFLUENZA VACCINE 07/11/2025 07/12/2018 TDAP/TD VACCINES (2 - Td or Tdap) 03/13/2032 022 Pneumococcal Vaccine 0-49 Aged Out No longer eligible based on patient's age to complete this topic Insurance [facility] 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
--- OUTSIDE RECORDS SUMMARY | 2025-06-27 10:15 | XMS_ITS | Clinical Summary ---
Author Organization [facility] Address [address] [place] [address] Care Team Providers Care Lace Finisher Name Role Phone Prabhu Gonzalez MD Primary Care Provider [phone] Amanda Mayo CENTRAL OFFICE REPAIRER Unavailable [phone] Flynn Iglesias MD Unavailable Allergies Active Allergy Reactions Criticality Noted Date Comments Penicillins Unknown - Patient st ates they do not know rxn details Low 06/08/2018 Medications busPIRone (Buspar) 10 MG tablet Take 5 mg by mouth 1 (one) time each day. 9 Active omeprazole (PriLOSEC) [address] capsule Take 1 capsule (40 mg) by mouth 1 (one) time each day. 9 Active gabapentin (Neurontin) 300 MG capsule Take 1 capsule (300 mg total) by mouth 2 (two) times a day. 60 capsule 2 Active naproxen (Naprosyn) 500 MG tablet 3 Active polyethylene glycol (Miralax) 17 GM/SCOOP powder 2 day prep, day 1 of 2 . See pharmacy notes for patient label instructions 238 g 3 Active Additional Information Patient not taking.Reported on 03/10/2024 polyethylene glycol (Golytely) 236 g solution Day 2 of 2. See pharmacy notes for patient label instructions 4000 mL 3 Active Additional Information Patient not taking.Reported on 03/10/2024 bisacodyl (Dulcolax) 5 MG EC tablet Take all 4 tablets at 9 am on 05/04 4 tablet Active Additional Information Patient not taking.Reported on 03/10/2024 Active Problems Problem Noted Date Diagnosed Date Aneurysm 05/05/2024 Anxiety 05/05/2024 Chest pain 05/05/2024 Chronic daily headache 05/05/2024 Hyperlipidemia 05/05/2024 SSS (sick sinus syndrome) 05/05/2024 Tremor 05/05/2024 Myopia of both eyes 04/03/2024 Presbyopia of both eyes 04/03/2024 Aneurysm of carotid artery 04/03/2024 Double vision 04/03/2024 Other localized visual field defect, bilateral 0 04/03/2024 Other specified disorders of kidney and ureter 0 03/13/2024 Cerebral aneurysm, nonruptured 03/10/2024 Cervicalgia 01/03/2024 Pain in left hip 12/06/2023 Shortness of breath 07/02/2023 Essential (primary) hypertension 06/16/2023 Cervical radiculopathy 06/16/2023 Unspecified abdominal pain 06/16/2023 Dizziness and giddiness 06/16/2023 Diverticulosis of large inte dre without perforation or abscess without bleeding 05/06/2023 Other hemorrhoids 05/06/2023 Polyp of colon 05/06/2023 Degeneration of intervertebral disc of cervical region 11/14/2018 Immunizations Immunization Administration Dates Next Due Influenza, seasonal, injectable, preservative fr ee 07/12/2018 Tdap 03/13/2022 Family History Medical History Relation Name Comments Cancer Brother Cardiac disorder Father Heart attack Father Liver cancer Father Stroke Father Cataracts Mother Diabetes Mother Stroke Other 1 Other cancer Other 2 Heart attack Other 3 Cancer Sister Pancreatic cancer Sister Relation Name Status Comments Brother Father Mother Other 1 Other 2 Other 3 Sister Social History Tobacco Use Types Packs/Day Years Used Date Smoking Tobacco: Every Day Cigarettes 1.5 74.7 Started: 1985 Passive Smoke Exposure: Current Smokeless Tobacco: Never Tobacco Cessation:Ready to Q uit: Not Asked; Counseling Given: Not Answered Alcohol Use Standard Drinks/Week Comments No 0 (1 standard drink = 0.6 oz pur e alcohol) PHQ-2 Answer Date Recorded Patient Health Questionnaire-2 Score 0 12/30/2022 PHQ-2A Answer Date Recorded Patient Health Questionnaire-2 Score 0 12/30/2022 Sex and Gender Information Value Date Recorded Sex Assigned at Not on file Legal Sex Male 7:09 PM EDT Gender Identity Not on file Sexual Orientation Not on file Last Filed Vital Signs Vital Sign Reading Time Taken Comments Blood Pressure 130/84 03/10/2024 11:56 AM EDT Pulse 54 03/10/2024 11:56 AM EDT Temperature 36.7 C (98 F) 01/03/2024 9:13 AM EDT Respiratory Rate 18 03/10/2024 11:56 AM EDT Oxygen Saturation 99% 03/10/2024 11:56 AM EDT Inhaled Oxygen Concentration - - Weight 73.9 kg (163 lb) 03/10/2024 11:56 AM EDT Height 185.4 cm (6' 1 ) 03/10/2024 11:56 AM EDT Body Mass Index 21.51 03/10/2024 11:56 AM EDT Plan of Treatment Upcoming Encounters Date Type Department Care Team (Late st Contact Info) Description 07/12/2025 1:15 PM EDT Office Visit [facility] [address] [facility] [place] [address] Arden Sellers, OD [address] [facility] [address] [place] [address] Health Maintenance Due Date Last Done Comments [facility]-HIV Screening 1975 [facility]-Hepatitis C Screening 1975 [facility]-/Child/Adol SDOH Screenings 1975 [facility]- SDOH Screenings 1993 [facility]-Adult SDOH Screenings 1993 [facility]-Hepatitis B Vaccines (1 of 3 - 19+ 3-dose series) 1994 CT Colonography 2020 FIT-DNA 2020 FIT 2020 FOBT 2020 Sigmoidoscopy 2020 [facility]-Depression Screening 12/31/2023 12/30/2022 [id number] Vaccine (1 - 20 24-25 season) 2025 [facility]-Influenza Vaccine (#1) 2025 07/12/2018 [facility]-Zoster Vaccines (1 of 2) 2025 [facility]-DTaP,Tdap,and Td Vaccine s (2 - Td or Tdap) 03/13/2032 03/13/2022 Colonoscopy 05/06/2033 05/06/2023 [facility]-Colorectal Cancer Screening 05/06/2033 HPV Vaccines Aged Out No longer eligi ble based on patient's age to complete this topic [facility]-HIB Vaccines Aged Out No longer e ligible based on patient's age to complete this topic [facility]-Hepatitis A Vaccines Aged Out No longer eligible based on patient's age to complete this topic [facility]-IPV Vaccines Aged Out No longer e ligible based on patient's age to complete this topic [facility]-Pneumococcal Vaccine: Pediatrics (0 to 5 Years) and At-Risk Patients (6 to 49 Years) Aged Out No long er eligible based on patient's age to complete this topic [facility]-Rotavirus Vaccines Aged Out No lo nger eligible based on patient's age to complete this topic Procedures Procedure Name Priority Date/Time Associated Diagnosis Comments COLONOSCOPY Routine 05/06/2023 11:37 AM EDT Constipation, unspecified constipation type from Last 3 Months or Most Recently Relevant to Health Maintenance Results * Colonoscopy (05/06/2023 11:37 AM EDT) Anatomical Region Laterality Modality Endoscopy Addenda Addendum by Lelo Galindo MD on 05/06/2023 11:56 AM EDT Table formatting from the original result was not included. Impression: Thick liquid stool was seen in the right colon. Did extensive water lavage, able to achieve fair visualization. Able to achieve adequate visualization in left colon. Small internal hemorrhoids Diverticulosis of mild severity in the sigmoid colon and rectosigmoid Subcentimeter sessile polyp in the sigmoid colon was removed with cold snare Recommendation Await pathology results Repeat surveillance colonoscopy in 2 years due to fair prep, especially in right colon. Recommend 2 days max dose bowel prep for next procedure and clear liquid diet starting up to 72 hours prior to procedure. Okay to resume diet Findings discussed with patient Follow up with referring provider Return home when discharge criteria met Indication Constipation Occasional hematochezia Medications See anesthesia record for anesthesia administered medications. Staff Staff Role Jameel Carey CRNA CRNA Hardin, Bryan D, MD Anesthesiologist Jenniffer Ragsdale RN Endo Nurse Lelo Galindo MD Proceduralist Sherie Najera MD (Fellow) Endo Metal Bonding Helper Preprocedure A history and physical has been performed, and patient medication allergies have been reviewed. The patient's tolerance of previous anesthesia has been reviewed. The risks and benefits of the procedure and the sedation options and risks were discussed with the patient. All questions were answered and informed consent obtained. Details of the Procedure The patient underwent monitored anesthesia care, which was administered by an anesthesia professional. The patient's blood pressure, heart rate, level of consciousness, respirations and oxygen were monitored throughout the procedure. A digital rectal exam was performed. A perianal exam was performed. The scope was introduced through the anus and advanced to the cecum. Retroflexion was performed in the rectum. The quality of bowel preparation was evaluated using the [place] Bowel Preparation Scale with scores of: right colon = 1, transverse colon = 1, left colon = 2. The total BBPS score was 4. Bowel prep was not adequate. The patient's estimated blood loss was minimal (<5 mL). The procedure was not difficult. The patient tolerated the procedure well. There were no apparent adverse events. Attestation I was present for the entire procedure Events Procedure Events Event Event Time ENDO SCOPE IN TIME 05/06/2023 11:09 AM ENDO CECUM REACHED 05/06/2023 11:15 AM ENDO SCOPE OUT TIME 05/06/2023 11:36 AM Specimens ID Type Source Tests Collected by Time A : polyp Tissue Sigmoid Colon SURGICAL PATHOLOGY EXAM Lelo Galindo MD 05/06/2023 1132 Findings Thick liquid stool was seen in the right colon. Did extensive water lavage, able to achieve fair visualization. Able to achieve adequate visualization in left colon. Few small diverticula of mild severity with no inflammation in the sigmoid colon and rectosigmoid; no bleeding was identified One sessile polyp measuring smaller than 5 mm in the sigmoid colon; completely removed en bloc by cold snare and retrieved specimen Internal hemorrhoids observed during retroflexion Carie Cordero APRN GI PROCEDURE ORDERABLES Edited Result - Final from Last 3 Months or Most Recently Relevant to Health Maintenance Insurance AETNA [facility] MEDICAID Care Teams Lace Finisher Relationship Specialty Start Date End Date Prabhu Gonzalez MD [address] [place] [address] PCP - General 02/21/21 Amanda Mayo, TYLER [address] [facility] [place] [address] Nurse Practitioner Neurosurgery 10/13/21 Flynn Iglesias MD [address] [facility] [address] [place] [address] Surgeon Neurosurgery 08/28/22
--- OUTSIDE RECORDS SUMMARY | 2025-06-27 10:15 | XMS_ITS | Encounter Summary ---
Author Organization [facility] Address [address] [place] [address] Care Team Providers Care Retail Coverage Merchandiser Name Role Phone Prabhu Gonzalez MD Primary Care Provider [phone] Amanda Mayo CRAFT DEMONSTRATOR Unavailable [phone] Flynn Iglesias MD Unavailable [phone] Encounter Details Date Type Department Care Team (Late Contact Info) Description 09/03/2021 Orders Only External Location [address] [place] [address] Provider, External Social History Tobacco Use Types Packs/Day Years Used Date Smoking Tobacco: Every Day Alcohol Use Standard Drinks/Week Comments No 0 (1 standard drink = 0.6 oz pur e alcohol) Sex and Gender Information Value Date Recorded Sex Assigned at Not on file Legal Sex Male 7:09 PM EDT Gender Identity Not on file Sexual Orientation Not on file documented as of this encounter Plan of Treatment Upcoming Encounters Date Type Department Care Team (Late Contact Info) Description 07/12/2025 1:15 PM EDT Office Visit [facility] [address] [place] [address] Arden Sellers, OD [address] [address] documented as of this encounter Procedures Procedure Name Priority Date/Time Associated Diagnosis Comments MR OUTSIDE IMAGES 09/03/2021 7:37 AM EST documented in this encounter Results * MR transfer of outside films (09/03/2021 7:37 AM EST) Anatomical Region Laterality Modality Magnetic Resonan ce 09/03/2021 7:37 AM EST us External Provider IMG MRI PROCEDURES Final Resul t documented in this encounter Visit Diagnoses Not on filedocumented in this encounter Care Teams Retail Coverage Merchandiser Relationship Specialty Start Date End Date Prabhu Gonzalez MD [address] [place] [address] PCP - General 02/21/21 Amanda Mayo, CRAFT DEMONSTRATOR [address] [place] [address] Nurse Practitioner Neurosurgery 10/13/21 Flynn Iglesias MD [address] [place] [address] Surgeon Neurosurgery 08/28/22 documented as of this encounter
--- OUTSIDE RECORDS SUMMARY | 2025-06-27 10:15 | XMS_ITS | Encounter Summary ---
Author Organization [facility] Address [address] [place] [address] Care Team Providers Care Operations Lieutenant Name Role Phone Prabhu Gonzalez MD Primary Care Provider + [phone] Amanda Mayo REBAR BENDER Unavailable [phone] Flynn Iglesias MD Unavailable [phone] Encounter Details Date Type Department Care Team (Late Contact Info) Description 12/01/2023 Orders Only External Location [address] [place] [id number] Provider, External Social History Tobacco Use Types Packs/Day Years Used Date Smoking Tobacco: Every Day Cigarettes 1 35 Smokeless Tobacco: Never Alcohol Use Standard Drinks/Week [...] Description 07/12/2025 1:15 PM EDT Office Visit [facility] [address] [place] [address] Arden Sellers, MARIAM [address] [address] documented as of this encounter Procedures Procedure Name Priority Date/Time Associated Diagnosis Comments MR OUTSIDE IMAGES 12/01/2023 5:00 PM EST documented in this encounter Results * MR transfer of outside films (12/01/2023 5:00 PM EST) Anatomical Region Laterality Modality Magnetic Resonan ce 12/01/2023 5:00 PM EST us External Provider IMG MRI PROCEDURES Final Resul t documented in this encounter Visit Diagnoses Not on filedocumented in this encounter Additional Health Concerns Assessment Noted Time A fall risk assessment has been complete d for the patient 02/26/2023 2:20 PM EDT documented as of this encounter Care Teams Operations Lieutenant Relationship Specialty Start Date End Date Prabhu Gonzalez MD [address] [place] [address] PCP - General 02/21/21 Amanda Mayo APRN [address] [place] [address] Nurse Practitioner Neurosurgery 10/13/21 Flynn Iglesias MD [address] [place] [address] Surgeon Neurosurgery 08/28/22 documented as of this encounter
--- OUTSIDE RECORDS SUMMARY | 2025-06-27 10:15 | XMS_ITS | Encounter Summary ---
Author Organization [facility] Address [address] [place] [address] Care Team Providers Care Mixing Technician Name Role Phone Prabhu Gonzalez MD Primary Care Provider + [phone] Amanda Mayo PAVING CONTRACTOR Unavailable [phone] Flynn Iglesias MD Unavailable [phone] Reason for Referral * Consultation (Routine) - Closed Specialty Diagnoses / Procedures Referred By Rochelle mcdowell Referred To Contact Neurosurgery Diagnoses Radiculopathy, cervical Jess Dangelo PA [address] [place] [address] Phone: tel: fax: Referral ID Status Reason Start Date Expiration Date V isits Requested Visits Authorized [id number] Closed Specialty Services Required 09/18/2021 03/20/2023 1 1 Encounter Details Date Type Department Care Team (Late st Contact Info) Description 09/18/2021 Community [facility] [address] [place] [address] Jess Dangelo PA [address] [facility] [place] [address] Radiculopathy, cervical (Primary Dx) Social History Tobacco Use Types Packs/Day Years [...] Description 07/12/2025 1:15 PM EDT Office Visit [facility] [address] [place] [address] Arden Sellers, OD [address] [place] [address] Scheduled Referrals Name Type Priority Associated Diagnoses Order Schedule Ambulatory Referral to Neurosurgery Outpatient Referral Routine Radiculopathy, cervical Expected: 09/18/2021 (Approximate), Expires: 03/19/2022 documented as of this encounter Visit Diagnoses Diagnosis Radiculopathy, cervical- Primary Brachial neuritis or radiculitis nos documented in this encounter Care Teams Mixing Technician Relationship Specialty Start Date End Date Prabhu Gonzalez MD [address] [place] [address] PCP - General 02/21/21 Amanda Mayo, PAVING CONTRACTOR [id number] [place] [address] Nurse Practitioner Neurosurgery 10/13/21 Flynn Iglesias MD [address] [place] [address] Surgeon Neurosurgery 08/28/22 documented as of this encounter
--- NOTE | 2025-06-27 10:21 | XR_ITS ---
FINAL REPORT CLINICAL HISTORY: Shortness of breath COMPARISON: 12/17/2022 FINDINGS: PA and lateral views of the chest were obtained. No acute pulmonary density is evident. There is no evidence of effusion or other pleural disease. The mediastinum has a normal appearance. The cardiac silhouette is unremarkable. IMPRESSION: Unremarkable chest exam. Reviewed, Interpreted and Dictated by Reno Cisneros MD Transcribed by Purvi Hicks Authenticated and [facility]
--- NOTE | 2025-06-27 10:21 | XR_ITS ---
FINAL REPORT CLINICAL HISTORY: pain COMPARISON: None FINDINGS: 3 views of the right shoulder show no evidence of acute displaced fracture or dislocation of the visualized bony architecture. The joint spaces appear normal. IMPRESSION: Unremarkable exam. Reviewed, Interpreted and Dictated by Reno Cisneros MD Transcribed by Purvi Hicks Authenticated and [facility]
[2025-06-27 11:41] LABS: Hematocrit 45.0 % (42.0-52.0); Hemoglobin 14.9 g/dL (14.1-18.0); Immature Granulocytes % 0.4 %; Mean Corpuscular HGB Conc 33.1 g/dL (31.8-35.4); Mean Corpuscular Hemoglobin 29.2 pg (27.0-31.2); Mean Corpuscular Volume 88.1 fl (80-94); Nucleated Red Blood Cells % 0 %; Platelet Count 241 K/mm3 (142-424); Red Blood Count 5.11 M/mm3 (4.60-6.20); Red Cell Distribution Width-SD 42.8 fL; White Blood Count 7.6 K/mm3 (4.8-10.8)
[2025-06-27 12:04] LABS: D-Dimer 0.38 ug/mL (0.0-0.5)
[2025-06-27 12:16] LABS: Albumin Level 5.0 g/dl (3.5-5.0); Chloride 102 mmol/L (98-107); Potassium 4.8 mmoL/L (3.5-5.1); Sodium 140 mmol/L (136-145)
[2025-06-27 12:19] LABS: Alanine Aminotransferase 22 U/L (12-78); Albumin/Globulin Ratio 1.9 (1.1-1.8); Alkaline Phosphatase 78 U/L (38-126); Anion Gap 16.8 mEq/L (5-15); Aspartate Amino Transferase 44 U/L (17-59); Bilirubin,Total 1.0 mg/dl (0.2-1.3); Blood Urea Nitrogen 12 mg/dl (9-20); Carbon Dioxide 26 mmol/L (22.0-30.0); Creatinine,Serum 1.00 mg/dl (0.66-1.25); Estimated Glomerular Filt Rate 79 ml/min (>60); GFR (African American) 96 ML/MIN (>60); Globulin 2.6 g/dL (1.3-3.2); Total Protein,Serum 7.6 g/dl (6.3-8.2)
[2025-06-27 12:20] LABS: Calcium 10.2 mg/dl (8.4-10.2); Glucose 93 mg/dl (74-100)
[2025-06-27 13:23] LABS: Hemoglobin A1C 5.5 % (4.0-6.0); Vitamin B12 390 pg/mL (239-931)
== END 2025-06-27 23:59 | disposition home or self-care (01) ==
LOC: LAB 10:11
PROVIDERS: PCP Family Medicine; Visit Provider Family Medicine
DX: Z00.00 Encounter for general adult medical examination without abnormal findings (principal); M25.519 Pain in unspecified shoulder; I67.1 Cerebral aneurysm, nonruptured; F17.200 Nicotine dependence, unspecified, uncomplicated; R06.09 Other forms of dyspnea; R20.0 Anesthesia of skin; R20.2 Paresthesia of skin; M48.02 Spinal stenosis, cervical region; I10 Essential (primary) hypertension; R07.9 Chest pain, unspecified; E78.5 Hyperlipidemia, unspecified; R42 Dizziness and giddiness; R55 Syncope and collapse
CPT/HCPCS: 36415; 71046; 73030; 80053; 82607; 83036; 85025; 85378

== ENCOUNTER 2025-06-29 12:49 | Outpatient (CLI) | payer OTHER, SELFPAY ==
--- OUTSIDE RECORDS SUMMARY | 2025-06-29 12:51 | XMS_ITS | Encounter Summary ---
Author Organization [facility] Address [address] [place] [address] Care Team Providers Care Armature Winder Repairer Name Role Phone Prabhu Gonzalez MD Primary Care Provider + [phone] Amanda Mayo STEREO PLOTTER OPERATOR Unavailable [phone] Flynn Iglesias MD Unavailable [phone] Encounter Details Date Type Department Care Team (Late Contact Info) Description 12/01/2023 Orders Only External Location [address] [place] [id number] Provider, External Social History Tobacco Use Types [...] Description 07/12/2025 1:15 PM EDT Office Visit [facility] [address] [place] [address] Arden Sellers, MARIAM [address] [address] documented as of this encounter [...] documented as of this encounter Care Teams Armature Winder Repairer Relationship Specialty Start Date End Date Prabhu Gonzalez MD [address] [place] [address] PCP - General 02/21/21 Amanda Mayo APRN [address] [place] [address] Nurse Practitioner Neurosurgery 10/13/21 Flynn Iglesias MD [address] [place] [address] Surgeon Neurosurgery 08/28/22 documented as of this encounter
--- OUTSIDE RECORDS SUMMARY | 2025-06-29 12:51 | XMS_ITS | Clinical Summary ---
Author Organization [facility] Address [address] [place] [address] Care Team Providers Care Fruit Or Nut Farmworker Name Role Phone Prabhu Gonzalez MD Primary Care Provider + [phone] Amanda Mayo SEMICONDUCTORS WAFER BREAKER Unavailable [phone] Flynn Iglesias MD Unavailable Allergies Active Allergy [...] Description 07/12/2025 1:15 PM EDT Office Visit [facility] [address] [facility] [place] [address] Arden Sellers, OD [address] [facility] [address] [place] [address] Health Maintenance Due Date Last Done Comments [facility]-HIV Screening 1975 [facility]-Hepatitis C Screening 1975 [facility]-/Child/Adol SDOH Screenings 1975 [facility]- SDOH Screenings 1993 [facility]-Adult SDOH Screenings 1993 [facility]-Hepatitis B Vaccines (1 of 3 - 19+ 3-dose series) 1994 CT Colonography 2020 FIT-DNA 2020 FIT 2020 FOBT 2020 Sigmoidoscopy 2020 [facility]-Depression Screening 12/31/2023 12/30/2022 [id number] Vaccine (1 - 20 24-25 season) 2025 [...] MD Proceduralist Sherie Najera MD (Fellow) Endo Welfare [facility] Manager Preprocedure A history and physical has been [...] of bowel preparation was evaluated using the [place] Bowel Preparation Scale with scores of: right [...] Recently Relevant to Health Maintenance Insurance AETNA [facility] MEDICAID Care Teams Fruit Or Nut Farmworker Relationship Specialty Start Date End Date Prabhu Gonzalez MD [address] [place] [address] PCP - General 02/21/21 Amanda Mayo, TYLER [address] [facility] [place] [address] Nurse Practitioner Neurosurgery 10/13/21 Flynn Iglesias MD [address] [facility] [address] [place] [address] Surgeon Neurosurgery 08/28/22
--- OUTSIDE RECORDS SUMMARY | 2025-06-29 12:51 | XMS_ITS | Encounter Summary ---
Author Organization [facility] Address [address] [place] [address] Care Team Providers Care Home Health Care Physician Name Role Phone Prabhu Gonzalez MD Primary Care Provider + [phone] Amanda Mayo TIRE INSPECTOR Unavailable [phone] Flynn Iglesias MD Unavailable [phone] Reason for Referral * Consultation (Routine) - Closed Specialty Diagnoses / Procedures Referred By Rochelle mcdowell Referred To Contact Neurosurgery Diagnoses Radiculopathy, cervical Jess Dangelo PA [address] [place] [address] Phone: tel: fax: Referral ID Status Reason Start Date Expiration Date V isits Requested Visits Authorized [id number] Closed Specialty Services Required 09/18/2021 03/20/2023 1 1 Encounter Details Date Type Department Care Team (Late st Contact Info) Description 09/18/2021 Community [facility] [address] [place] [address] Jess Dangelo PA [address] [facility] [place] [address] Radiculopathy, cervical (Primary Dx) Social [...] Description 07/12/2025 1:15 PM EDT Office Visit [facility] [address] [place] [address] Arden Sellers, OD [address] [place] [address] Scheduled Referrals Name Type Priority Associated Diagnoses Order Schedule Ambulatory Referral to Neurosurgery Outpatient Referral Routine Radiculopathy, cervical Expected: 09/18/2021 (Approximate), Expires: 03/19/2022 documented as of this encounter Visit Diagnoses Diagnosis Radiculopathy, cervical- Primary Brachial neuritis or radiculitis nos documented in this encounter Care Teams Home Health Care Physician Relationship Specialty Start Date End Date Prabhu Gonzalez MD [address] [place] [address] PCP - General 02/21/21 Amanda Mayo, TIRE INSPECTOR [id number] [place] [address] Nurse Practitioner Neurosurgery 10/13/21 Flynn Iglesias MD [address] [place] [address] Surgeon Neurosurgery 08/28/22 documented as of this encounter
--- OUTSIDE RECORDS SUMMARY | 2025-06-29 12:51 | XMS_ITS | Clinical Summary ---
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
--- OUTSIDE RECORDS SUMMARY | 2025-06-29 12:51 | XMS_ITS | Encounter Summary ---
Author Organization Healthcare Address [address] [place] [address] Care Team Providers Care Amusement Park Entertainer Name Role Phone Prabhu Gonzalez MD Primary Care Provider + [phone] Amanda Mayo REMEDIAL MASSEUR Unavailable [phone] Flynn Iglesias MD Unavailable [phone] Encounter Details Date Type Department Care Team (Late Contact Info) Description 09/03/2021 Orders Only External Location [address] [place] [address] Provider, External Social History Tobacco Use Types [...] Description 07/12/2025 1:15 PM EDT Office Visit [facility] [address] [place] [address] Arden Sellers, OD [address] [address] documented as of this encounter [...] on filedocumented in this encounter Care Teams Amusement Park Entertainer Relationship Specialty Start Date End Date Prabhu Gonzalez MD [address] [place] [address] PCP - General 02/21/21 Amanda Mayo, REMEDIAL MASSEUR [address] [place] [address] Nurse Practitioner Neurosurgery 10/13/21 Flynn Iglesias MD [address] [place] [address] Surgeon Neurosurgery 08/28/22 documented as of this encounter
[2025-06-29] MEDS: ALBUTEROL 0.083% 2.5 MG/3 ML NEB IH (13:14)
--- NOTE | 2025-06-29 13:15 | PC.NURSE ---
PFT completed without incident. Albuterol 0.083% given via HHN, per written protocol, Pt tolerated tx well.
== END 2025-06-29 23:59 | disposition home or self-care (01) ==
LOC: RT 12:49
PROVIDERS: PCP Family Medicine; Visit Provider Family Medicine
DX: J44.9 Chronic obstructive pulmonary disease, unspecified (principal); R94.2 Abnormal results of pulmonary function studies; R55 Syncope and collapse; I10 Essential (primary) hypertension; F17.200 Nicotine dependence, unspecified, uncomplicated
CPT/HCPCS: 94010; 94727; 94729

== ENCOUNTER 2025-07-25 16:28 | Outpatient (CLI) | payer OTHER, SELFPAY ==
--- OUTSIDE RECORDS SUMMARY | 2025-07-25 16:31 | XMS_ITS | Encounter Summary ---
Author Organization [facility] Address [address] [place] [address] Care Team Providers Care Structures Mechanic Name Role Phone Prabhu Gonzalez MD Primary Care Provider [phone] Amanda Mayo SUPERVISOR WOOL SHEARING Unavailable [phone] Flynn Iglesias MD Unavailable [phone] Encounter Details Date Type Department Care Team (Late st Contact Info) Description 09/03/2021 Orders Only External Location [address] [place] [address] Provider, External Social History Tobacco Use Types [...] as of this encounter Plan of Treatment Not on file documented as of this encounter Procedures Procedure [...] on filedocumented in this encounter Care Teams Structures Mechanic Relationship Specialty Start Date End Date Prabhu Gonzalez MD [address] [place] [address] PCP - General 02/21/21 Amanda Mayo APRN [address] [place] [address] Nurse Practitioner Neurosurgery 10/13/21 Flynn Iglesias MD [address] [place] [address] Surgeon Neurosurgery 08/28/22 documented as of this encounter
--- OUTSIDE RECORDS SUMMARY | 2025-07-25 16:31 | XMS_ITS | Encounter Summary ---
Author Organization Healthcare Address [address] [place] [address] Care Team Providers Care Legal Coordinator Name Role Phone Prabhu Gonzalez MD Primary Care Provider + [phone] Amanda Mayo INTERNET MARKETING MANAGER Unavailable [phone] Flynn Iglesias MD Unavailable [phone] Encounter Details Date Type Department Care Team (Late st Contact Info) Description 12/01/2023 Orders Only External Location [address] [place] [address] Provider, External Social History Tobacco Use Types [...] documented as of this encounter Care Teams Legal Coordinator Relationship Specialty Start Date End Date Prabhu Gonzalez MD [address] [place] [address] PCP - General 02/21/21 Amanda Mayo, INTERNET MARKETING MANAGER [address] [place] [address] Nurse Practitioner Neurosurgery 10/13/21 Flynn Iglesias MD [address] [place] [address] Surgeon Neurosurgery 08/28/22 documented as of this encounter
--- OUTSIDE RECORDS SUMMARY | 2025-07-25 16:31 | XMS_ITS | Encounter Summary ---
Author Organization [facility] Address [address] [place] [address] Care Team Providers Care Sales Market Leader Name Role Phone Prabhu Gonzalez MD Primary Care Provider + [phone] Amanda Mayo METAL PAINTER Unavailable [phone] Flynn Iglesias MD Unavailable [phone] Reason for Referral * Consultation (Routine) - Closed Specialty Diagnoses / Procedures Referred By Rochelle mcdowell Referred To Contact Neurosurgery Diagnoses Radiculopathy, cervical Jess Dangelo PA [address] [place] [address] Phone: tel: fax: Referral ID Status Reason Start Date Expiration Date V isits Requested Visits Authorized [id number] Closed Specialty Services Required 09/18/2021 03/20/2023 1 1 Encounter Details Date Type Department Care Team (Late st Contact Info) Description 09/18/2021 [facility] [address] [place] [address] Jess Dangelo PA [address] [facility] [place] [address] Radiculopathy, cervical (Primary Dx) Social [...] as of this encounter Plan of Treatment Scheduled Referrals Name Type Priority Associated Diagnoses Order Schedule Ambulatory Referral to Neurosurgery Outpatient Referral Routine Radiculopathy, cervical Expected: 09/18/2021 (Approximate), Expires: 03/19/2022 documented as of this encounter Visit Diagnoses Diagnosis Radiculopathy, cervical- Primary Brachial neuritis or radiculitis nos documented in this encounter Care Teams Sales Market Leader Relationship Specialty Start Date End Date Prabhu Gonzalez MD [address] [place] [address] PCP - General 02/21/21 Amanda Mayo, METAL PAINTER [address] [facility] [place] [address] Nurse Practitioner Neurosurgery 10/13/21 Flynn Iglesias MD [address] [facility] [place] [address] Surgeon Neurosurgery 08/28/22 documented as of this encounter
--- OUTSIDE RECORDS SUMMARY | 2025-07-25 16:31 | XMS_ITS | Clinical Summary ---
Author Organization [facility] Address [address] [place] [address] Care Team Providers Care Gang Bore Operator Name Role Phone Prabhu Gonzalez MD Primary Care Provider + [phone] Amanda Mayo GENERAL ENGINEERING TEACHER Unavailable [phone] Flynn Iglesias MD Unavailable [phone] Allergies Active Allergy Reactions Criticality Noted Date [...] Date Diagnosed Date Aneurysm 05/05/2024 Anxiety 05/05/2024 Chronic daily headache 05/05/2024 Hyperlipidemia 05/05/2024 [...] Essential (primary) hypertension 06/16/2023 Cervical radiculopathy 06/16/2023 Dizziness and giddiness 06/16/2023 Diverticulosis of large inte dre without perforation or abscess without bleeding 05/06/2023 Other hemorrhoids 05/06/2023 Polyp of colon 05/06/2023 Degeneration of intervertebral disc of cervical region 11/14/2018 Resolved Problems Problem Noted Date Diagnosed Date Resolved Date Chest pain 05/05/2024 07/01/2025 Unspecified abdominal pain 06/16/2023 0 07/01/2025 Immunizations Immunization Administration Dates Next Due Influenza, [...] Date Smoking Tobacco: Every Day Cigarettes 1.5 74.8 Started: 1985 Passive Smoke Exposure: Current Smokeless [...] 03/10/2024 11:56 AM EDT Plan of Treatment Health Maintenance Due Date Last Done Comments [facility]-HIV Screening 1975 [facility]-Hepatitis C Screening 1975 [facility]-Infant/Child/Adol SDOH Screenings 1975 [facility]- SDOH Screenings 1993 [facility]-Adult SDOH Screenings 1993 [facility]-Hepatitis B Vaccines (1 of 3 - 19+ 3-dose series) 1994 CT Colonography 2020 FIT-DNA 2020 FIT 2020 FOBT 2020 Sigmoidoscopy 2020 [facility]-Depression Screening 12/31/2023 12/30/2022 [id number] Vaccine (1 - 20 24-25 season) 2025 [...] CRNA Hardin, Bryan D, MD Anesthesiologist Jenniffer Ragsdale, RN Endo Nurse Lelo Galindo MD Proceduralist Sherie Najera MD (Fellow) Endo [employer] Preprocedure A history and physical has been [...] of bowel preparation was evaluated using the [place] Bowel Preparation Scale with scores of: right [...] Recently Relevant to Health Maintenance Insurance [employer] MEDICA[employer] Care Teams Gang Bore Operator Relationship Specialty Start Date End Date Prabhu Gonzalez MD [address] [place] [address] PCP - General 02/21/21 Amanda Mayo APRN [address] [place] [address] Nurse Practitioner Neurosurgery 10/13/21 Flynn Iglesias MD [address] [place] [address] Surgeon Neurosurgery 08/28/22
--- OUTSIDE RECORDS SUMMARY | 2025-07-25 16:31 | XMS_ITS | Data Portability ---
Author Organization ID - [place] [facility] Address [address] [facility] [address] [place] [address] Assessment No assessment recorded. Plan of Treatment Reminders Order Date Submit Date Provider Last Modified By Organization Details Last Modified Time Details Appointments None record ed. Lab urinal ysis, dipsti ck, auto 018 12/24/19 18 [facility], [address] [facility] [address], [place], [address], 8 15:33:47 Referral None record ed. Procedures None record ed. Surgeries None record ed. Imaging None record ed. Medication Orders None record ed. Patient TargetsNo targets recorded. Patient Instructions Encounter Date Encounter Id Patient Instructions Last Modified By Organization Details Last Modified Time 12/23/2017 [id number] healthy together fhadley Not availabl e 12/23/2017 15:33:47 epididymitis and orchitis: care instructions adley Not available 12/23/2017 15:33:29 Reason for Referral None Reported. Results Created Date Observation Date Name Description Value Unit Range Abnormal Flag Note LastModifiedBy Organization Detail LastModifiedTime 12/24/19 18 12/23/2017 urina lysis , dipst ick, auto Unknown Analyte Yellow Not Available [facility] [address], [place], [address], 12/23/2017 15:25:07 12/24/19 18 12/23/2017 urina lysis , dipst ick, auto Unknown Analyte Clear Not Available [facility] [address], [place], [address], 12/23/2017 15:25:07 12/24/19 18 12/23/2017 urina lysis , dipst ick, auto Unknown Analyte 1.010 Not Available [facility] [address], [place], [address], 12/23/2017 15:25:07 12/24/19 18 12/23/2017 urina lysis , dipst ick, auto Unknown Analyte 6.0 Not Available [facility] [address], [place], [address], 12/23/2017 15:25:07 12/24/19 18 12/23/2017 urina lysis , dipst ick, auto Unknown Analyte Negati ve Not Available [facility] [address], [place], [address], 12/23/2017 15:25:07 12/24/19 18 12/23/2017 urina lysis , dipst ick, auto Unknown Analyte Negati ve Not Available [facility] [address], [place], [address], 12/23/2017 15:25:07 12/24/19 18 12/23/2017 urina lysis , dipst ick, auto Unknown Analyte Negtiv e Not Available [facility] [address], [place], [address], 12/23/2017 15:25:07 12/24/19 18 12/23/2017 urina lysis , dipst ick, auto Unknown Analyte Normal Not Available [facility] [address], [place], [address], 12/23/2017 15:25:07 12/24/19 18 12/23/2017 urina lysis , dipst ick, auto Unknown Analyte Negati ve Not Available [facility] [address], [place], [address], 12/23/2017 15:25:07 12/24/19 18 12/23/2017 urina lysis , dipst ick, auto Unknown Analyte Normal Not Available [facility] [address], [place], [address], 12/23/2017 15:25:07 12/24/19 18 12/23/2017 urina lysis , dipst ick, auto Unknown Analyte Negati ve Not Available [facility] [address], [place], [address], 12/23/2017 15:25:07 12/24/19 18 12/23/2017 urina lysis , dipst ick, auto Unknown Analyte Negati ve Not Available [facility] [address], [place], [address], 12/23/2017 15:25:07 12/24/19 18 12/23/2017 urina lysis , dipst ick, auto Unknown Analyte Clean Catch Not Available [facility] [address], [place], [address], 12/23/2017 15:25:07 12/24/19 18 12/23/2017 urina lysis , dipst ick, auto Unknown Analyte Automa bronson Not Available [facility] [address], [place], [address], 12/23/2017 15:25:07 Result Notes None recorded. Medical Equipment None Reported. Allergies Allergen ID Allergen Name Allergen Category Reaction Reaction Severity Criticality Documentation Date Start Date Code Code System Note Provider Name and Address Organization Details Recorded Time 206167 Product containin g penicilli n (product) medicatio n Not available Not available Not available 12/23/2017 [id number] SNOMED Millicentheather Mendiola [facility] 8 15:16:09 Medications Name Sig Start Date Stop Date Status Note LastModified by Organization Details LastModified Time [email or web address] active Not Available Not A vailable Not Available Vitals Date Recorded Body height Body mass index (BMI) Body weight Heart rate Systolic And Diastolic Provider Name and Address Organization Details Last Updated DateTime 12/23/2017 185.42 cm 23.2 kg/m2 75173.26 g 101 /min 153/99 mm[Hg] Millicent Mendiola [facility] 12/23/2017 15:15:22 Social History Question Answer Notes LastModified by Organizat ion Details LastModified Time Tobacco Smoking Status Current Every Day Smoker Millicent Mendiola [facility] 12/23/2017 15:18:36 Marital Status [email or web address] Informatio n not available 12/23/2017 What Was The Date Of Your Most Recent Tobacco Screening? 12/23/2017 Information not available 11/28/2019 Has Tobacco Cessation Counseling Been Provided? Yes [email or web address] Information not available 12/23/2017 On What Date Was Tobacco Cessation Counseling Provided? 12/23/2017 [email or web address] Information not available 12/23/2017 Sex: Unknown Functional Status Question Answer Note LastModified by Organization D etails LastModified Time What is your level of alcohol consumption? None [email or web address] Information not available 12/23/2017 Mental Status None recorded. Family History Relationship Description Onset Age of this Age Resolved Age Notes LastModified by Organization Details LastModified Time Mother Diabetes mellitus [email or web address] Not available 12/23 15:18:12 Mother Family history of malignant neoplasm Not available 12/23 15:18:22 Maternal Grandmother Diabetes mellitus [email or web address] Not available 12/23 15:18:30 Medical History Condition Response Hypertension Y Past Encounters Encounter ID Performer Location Encounter Start Date Encounter Closed Date Diagnosis/Indication Diagnosis SNOMED-CT Code Diagnosis ICD10 Code Diagnosis IMO Codes Diagnosis Note [id number] JOSHUA DEL VALLE MD [facility] [address] [place] [address] 12/23/2017 14:38:37 12/24/2017 09:21:28 Epididymitis 98531985 N45.1 Health Concerns Section Related Observation LastModified by Organization Detai ls LastModified Time None Recorded Concern Status LastModified by Organization Details LastModified Time None Recorded Advance Directives Directive None Recorded Payers Insurance Date Sequence Insurance Name Policy Number Policy Roblero Covered Member ID Roblero Member ID Guarantor Name 12/23/2017 1 [facility] (MEDICAID HMO) Helio Castro [id number] Helio Castro Notes Date Note Type Note Provider Name and Address Organization Details Recorded Time 12/23/2017 text/html efe underwent a left epididymectomy 10 days ago.. He's been having some bleeding through the incision comes in today to have this checked. He has a small scrotal hematoma. The incision is intact and shows no sign of infection. The patient is reassured that this is just old blood it is working his way to the incision JOSHUA DEL VALLE MD [facility] [place], [address], [facility] 12/23/2017 15:34:13
--- OUTSIDE RECORDS SUMMARY | 2025-07-25 16:31 | XMS_ITS | Clinical Summary ---
Author Organization 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
--- NOTE | 2025-07-25 17:00 | MR_ITS ---
PROCEDURE INFORMATION: Exam: MR Right Upper Extremity Joint Without Contrast; Shoulder Exam date and time: 07/25/2025 4:41 PM Age: 49 years old Clinical indication: Pain; Shoulder; Right; Additional info: Right rotator cuff pain TECHNIQUE: Imaging protocol: Magnetic resonance imaging of the right upper extremity without contrast. Exam focused on the shoulder. COMPARISON: CR XR SHOULDER RT MIN 2V 06/27/2025 10:38 AM FINDINGS: Bones/joints: Small amount of marrow edema in the greater tuberosity of the humerus. Mild degenerative changes of the acromioclavicular joint. Otherwise unremarkable. Glenoid labrum: Unremarkable. No evidence of tear. Bursae: Small amount of fluid in the subacromial/subdeltoid bursa. Supraspinatus tendon: Mild signal abnormality throughout the distal supraspinatus tendon suggesting mild chronic tendinosis. No tona tendon rupture or retraction. Infraspinatus tendon: Unremarkable. No evidence of tear. Subscapularis tendon: Unremarkable. No evidence of tear. Teres minor tendon: Unremarkable. No evidence of tear. Tendon of biceps brachii: Unremarkable. No evidence of tear. Glenohumeral ligaments: Unremarkable. Soft tissues: Unremarkable. IMPRESSION: 1. Findings suggesting mild tendinosis of the supraspinatus tendon and mild adjacent marrow edema in the greater tuberosity of the humerus. 2. Mild findings of subacromial/subdeltoid bursitis
== END 2025-07-25 23:59 | disposition home or self-care (01) ==
LOC: RAD 16:29
PROVIDERS: Visit Provider Physician Assistant
DX: M19.011 Primary osteoarthritis, right shoulder (principal); M75.51 Bursitis of right shoulder; R93.6 Abnormal findings on diagnostic imaging of limbs
CPT/HCPCS: 73221

== ENCOUNTER 2025-08-13 07:40 | Outpatient (RCR) | payer OTHER, SELFPAY ==
--- NOTE | 2025-08-13 11:04 | [facility]H.OTOPEV ---
OT Evaluation Rehab OT Outpatient Eval Start: 08/13/25 08:10 Freq: Status: Active Protocol: Document 08/13/25 08:51 VAN (Rec: 08/13/25 11:02 ZAHRATAMANNA [id number]) E-signed By Shelley Jaramillo, OT Outpatient Therapy Subjective History Subjective History A 49-year-old male was referred to skilled outpatient occupational therapy services for right shoulder tendinitis. The patient is scheduled for an orthopedic follow-up in four weeks. MRI of the right shoulder completed on 07/25/25 revealed mild supraspinatus tendinosis with mild adjacent marrow edema in the greater tuberosity of the humerus, as well as mild subacromial/subdeltoid bursitis. A prior X-ray completed on 06/27/25 showed an unremarkable exam of the right shoulder. Imaging findings are consistent with mild tendinosis and bursitis of the right shoulder, contributing to pain and decreased function. Skilled OT services are indicated to address pain management, range of motion, and strengthening to support performance in daily activities. Chief Complaint Pain Symptom Type Ache,Sharp Symptoms Relieved By Nothing Symptoms Aggravated Supine,Physical Activity By Prior Functional None Limitations Current Functional Reaching,Lifting,Sleeping Limitations Symptom Description Constant and Continuous Level of pain today 6 (0-10) Pain scale - at its 6 best (0-10) Pain scale - at its 10 worst (0-10) Shoulder/Elbow Eval Shoulder Objective Measurements Shoulder ROM Left Shoulder Abduction 120 Active Range of Motion (degrees) Shoulder Flexion 90 Active Range of Motion (degrees) Query Text: Shoulder External 40 Rotation Active Range of Motion ( degrees) Shoulder Internal 40 Rotation Active Range of Motion ( degrees) Shoulder MMT Right Shoulder Abduction 3 Fair Strength Grade Shoulder Extension 3 Fair Strength Grade Shoulder Flexion 3 Fair Strength Grade Shoulder Horizontal 3 Fair Abduction Strength Grade Shoulder Horizontal 3 Fair Adduction Strength Grade Infraspinatus/Teres 3 Fair Minor Strength Grade Shoulder External 3 Fair Rotation Strength Grade Shoulder Internal 3 Fair Rotation Strength Grade Elbow Objective Measurements QuickDASH Activities Please rate your ability to do the following activities in the last week by selecting the number below the appropriate response. 1. Open a tight or No difficulty new jar. 2. Do heavy Mild difficulty heat welder plastics (e. g., wash florez, floors). 3. Carry a shopping Mild difficulty bag or briefcase. 4. Wash your back. Moderate difficulty 5. Use a knife to No difficulty cut food. 6. Recreational Moderate difficulty activities in which you take some force or impact through your arm, shoulder, or hand (e.g., golf, hammering, tennis, etc.). 7. During the past Quite a bit week, to what extent has your arm, shoulder or hand problem interfered with your normal social activities with family, friends , neighbors or groups? 8. During the past Moderately limited week, were you limited in your work or other regular daily activites as a result of your arm, shoulder or hand problem? 9. Arm, shoulder or Moderate hand pain. 10. Tingling (pins Moderate and needles) in your arm, shoulder or hand. 11. During the past Moderate difficulty week, how much difficulty have you had sleeping because of the pain in your arm, shoulder or hand? Quick DASH 28 OT Patient Goals OT Patient Goals OT Short Term 1. Patient will verbalize understanding of and Patient Goals demonstrate compliance with home exercise program to improve right shoulder mobility and reduce pain. 2. Patient will increase right shoulder active range of motion by =10? in flexion and abduction to improve ease with dressing and reaching tasks. 3. Patient will report pain reduction from 6/10 to =4/ 10 during light ADL activities. 4. Patient will demonstrate improved postural awareness and joint protection strategies during functional reaching tasks with minimal verbal cueing. OT Penitentiary Patient 1. Patient will achieve functional right shoulder AROM Goals within normal limits for performing ADLs such as grooming, dressing, and reaching overhead. 2. Patient will report pain =2/10 during ADL and work- related activities. 3. Patient will demonstrate improved strength of right shoulder to at least 4+/5 to support independence with lifting and carrying light household items. 4. Patient will demonstrate independence with final HEP to support continued shoulder health and prevention of re-injury. OT Outpatient Assessment Impairments Problems/Impairments Impaired Range of Motion,Impaired Strength,Subjective C /O Pain Prognosis Rehab Potential Good Clinical Impression Consistent with Yes Diagnosis Outpatient Therapy Plan of Care Treatment Plan May Include Therapeutic Exercise Yes Including Home Exercise Program Manual Therapy Yes Techniques Therapeutic Yes Activities to Return to Previous Functional/Work Level Thermal Modalities Yes Electrical Yes Stimulation Ultrasound/ Yes Phonophoresis Iontophoresis Yes Eval/Re-Eval Yes Frequency Times per week 2x/wk Duration Number of Weeks 4 weeks Addendums This patient is a No candidate for social or vocational rehab ? Patient/Guardian Yes verbally acknowledges understanding of treatment program and consents to further treatment? Patient/Guardian Yes verbally acknowledges understanding of diagnosis, prognosis and goals for treatment? Eval Complexity OT Charge 40349 - Low Complexity PHYSICIAN CERTIFICATION: I certify the specified therapy services for Helio Castro are required, authorized, and reviewed every 30 days.
== END 2025-08-13 23:59 | disposition home or self-care (01) ==
LOC: OT 07:40
PROVIDERS: Visit Provider Physician Assistant
DX: M67.813 Other specified disorders of tendon, right shoulder (principal)
CPT/HCPCS: 97165